=== PATIENT | female | born 1950 | race Caucasian/White ===

== ENCOUNTER → 2016-03-06 | Outpatient (CLI) | payer MEDICARE ==
[2016-03-06 16:09] LABS: EKG EKG PERFORMED
[2016-03-06 16:46] LABS: Basophils # (A) 0.1 k/uL (0-0.2); Basophils % (A) 1 %; CH 28.7; CHCM 33.3; Eosinophils # (A) 0.2 k/uL (0-0.7); Eosinophils % (A) 3 %; HCT 37.2 % (34.0-46.0); HDW 3.02; HGB 12.1 gm/dL (11.4-16.0); Luc # (Auto) 0.15; Luc % (Auto) 2; Lymphocytes # (A) 2.1 k/uL (1.0-4.8); Lymphocytes % (A) 23 %; MCH 28.1 pg (25.0-35.0); MCHC 32.4 g/dL (31.0-37.0); MCV 86.9 fL (80.0-100.0); Mean Platelet Volume 7.2; Monocytes # (A) 0.6 k/uL (0-1.0); Monocytes % (A) 6 %; Neutrophils # (A) 6.2 k/uL (1.3-7.7); Neutrophils % (A) 66 %; RBC 4.28 m/uL (3.80-5.40); RDW 14.8 % (11.5-15.5); WBC 9.3 k/uL (3.8-10.6); WBC (Perox) 9.46
[2016-03-06 16:54] LABS: INR 0.9 (<1.1); Partial Thromboplastin Time 23.9 sec (22.0-30.0); Prothrombin Time 9.7 sec (9.0-12.0)
[2016-03-06 17:11] LABS: Appearance,Urine Cloudy (Clear); Bacteria,Urine Rare /hpf; Bilirubin,Urine Negative (Negative); Calcium Oxalate Crystals,Urine Many /hpf; Glucose,Urine (UA) Negative (Negative); Ketones,Urine Negative (Negative); Leukocyte Esterase,Urine Negative (Negative); Mucus,Urine Few /hpf; Nitrite,Urine Negative (Negative); PH, Urine 5.5 (5.0-8.0); Particle Count 5640; Protein,Urine Trace (Negative); RBC,Urine 13 /hpf (0-5); Specific Gravity,Urine 1.021 (1.001-1.035); Squamous Epithelial Cell,Urine 3 /hpf (0-4); UA Billing (MACRO vs. MICRO) MICRO; Urobilinogen,Urine <2.0 mg/dL (<2.0); WBC,Urine 2 /hpf (0-5)
[2016-03-06 17:25] LABS: ALT 37 U/L (9-52); AST 21 U/L (14-36); Alkaline Phosphatase 88 U/L (38-126); Anion Gap 12 mmol/L; Blood Urea Nitrogen 13 mg/dL (7-17); Calcium 9.6 mg/dL (8.4-10.2); Carbon Dioxide 27 mmol/L (22-30); Chloride 107 mmol/L (98-107); Glucose 105 mg/dL (74-99); Non-African American GFR(MDRD) >60 (>60 ml/min/1.73 sqM); Sodium 146 mmol/L (137-145); Total Bilirubin 0.4 mg/dL (0.2-1.3); Total Protein 7.1 g/dL (6.3-8.2)
== END | disposition home or self-care (01) ==
LOC: LABPAT 16:01
PROVIDERS: ATTEND Orthopaedic Surgery Sports Medicine
DX: Z01.810 Encounter for preprocedural cardiovascular examination (principal); Z01.812 Encounter for preprocedural laboratory examination
CPT/HCPCS: 80053; 81001; 85025; 85610; 85730; 87070; 93005

== ENCOUNTER 2016-03-21 12:52 | Inpatient (IN) | payer MEDICARE ==
[~2016-03-21 12:52] MED LIST: ACETAMINOPHEN TAB 500 MG TAB PO ONE; ALVIMOPAN 12 MG CAPSULE PO ONE; DEXAMETHASONE SOD PHOSPHATE 10 MG/ML 1 ML VIAL IV ONE; HYDROmorphone 1 MG/ML 1 ML SYRINGE IVP PRN; LIDOCAINE 1% 20 ML VIAL (10MG/ML) FOR IV START INTRADERMA PRN; MELOXICAM 7.5 MG TAB PO ONE; MIDAZOLAM 2 MG/2 ML VIAL IV PRN; ONDANSETRON 4 MG/2 ML VIAL IVP ONE; Pre Op ABX Message 1 EACH MISC MISCELLANE ONE; ROPIVACAINE 246.25 MG, EPINEPHrine 0.5 MG, KETOROLAC 30 MG, cloNIDine HCL/PF 80 MCG, WA... MISCELLANE ONE; SCOPOLAMINE 1.5MG/72HR PATCH TRANSDERM ONE
[2016-03-21] MEDS ORDERED: TRANEXAMIC ACID 1,000 MG in SODIUM CHLORIDE 0.9% 100 ML IVPB PRN (12:57)
[2016-03-21] MEDS: LACTATED RINGERS 1,000 ML IV SCH ×3 (13:38→18:31)
[2016-03-21] MEDS: VANCOMYCIN 1,000 MG in SODIUM CHLORIDE 0.9% 250 ML IVPB STA ×2 (14:05→14:12)
[2016-03-21 14:10] LABS: Glucose,Whole Blood 94 mg/dL (75-99)
[2016-03-21] MEDS ORDERED: MORPHINE SULFATE (PF) 0.3 MG/0.3 ML SYR ONE (14:14)
[2016-03-21] MEDS ORDERED: PHENYLEPHRINE-0.9% NACL SYG 1 MG/10 ML SYRINGE ONE (14:14)
[2016-03-21] MEDS ORDERED: SODIUM CHLORIDE 0.9% 100 ML BAG ONE (14:14)
[2016-03-21] MEDS ORDERED: PROPOFOL 10 MG/ML 20 ML VIAL IV ONE (14:14)
[2016-03-21] MEDS ORDERED: MIDAZOLAM 2 MG/2 ML VIAL ONE (14:14)
[2016-03-21] MEDS ORDERED: LIDOCAINE 1% INJ 10MG/ML (20 ML MDV) ONE (14:14)
[2016-03-21] MEDS ORDERED: ePHEDrine 50 MG/ML 1 ML AMP ONE (14:14)
[2016-03-21] MEDS ORDERED: TRANEXAMIC ACID 1,000 MG/10 ML VIAL ONE (14:14)
[2016-03-21] MEDS ORDERED: CLINDAMYCIN 1,800 MG in SODIUM CHLORIDE 0.9% IRRIGATIO 3,000 ML IRRIGATION ONE (14:48)
[2016-03-21] MEDS ORDERED: ONDANSETRON 4 MG/2 ML VIAL IVP PRN ×2 (14:55→16:26)
[2016-03-21] MEDS ORDERED: NALOXONE 0.4 MG/ML 1 ML VIAL IV PRN (14:55)
[2016-03-21] MEDS ORDERED: MORPHINE SULFATE 4 MG/ML SYRINGE IVP PRN (14:55)
[2016-03-21] MEDS ORDERED: diphenhydrAMINE 50 MG/ML 1 ML VIAL IVP PRN (14:55)
[2016-03-21] MEDS ORDERED: TEMAZEPAM 15 MG CAP PO PRN (16:26)
[2016-03-21] MEDS ORDERED: BISACODYL 10 MG SUPP RECTAL PRN (16:26)
[2016-03-21] MEDS ORDERED: NA PHOS,M-B/NA PHOS,DI-BA 133 ML ENEMA RECTAL PRN (16:26)
[2016-03-21] MEDS ORDERED: hydrOXYzine PAMOATE 25 MG CAP PO PRN (16:26)
[2016-03-21] MEDS ORDERED: DIAZEPAM 5 MG TAB PO PRN (16:26)
[2016-03-21] MEDS ORDERED: ACETAMINOPHEN TAB 325 MG TAB PO PRN (16:26)
[2016-03-21] MEDS ORDERED: MAGNESIUM HYDROXIDE 2,400 MG/10 ML CUP PO PRN (16:26)
[2016-03-21] MEDS ORDERED: HYDROmorphone 1 MG/ML 1 ML SYRINGE IVP PRN ×2 (16:26)
[2016-03-21 16:36] LABS: Glucose,Whole Blood 177 mg/dL (75-99)
--- NOTE | 2016-03-21 17:05 | XR ---
EXAMINATION TYPE: XR knee limited RT DATE OF EXAM: 03/21/2016 4:55 PM COMPARISON: NONE HISTORY: Post knee replacement TECHNIQUE: 2 views right knee FINDINGS: Tibial and femoral components in place. No acute fractures are evident. Postsurgical change s are within the soft tissues IMPRESSION: No acute fractures post knee replacement.
[2016-03-21] MEDS: PREGABALIN 100 MG CAP PO SCH (20:41)
[2016-03-21] MEDS: LOSARTAN 50 MG TAB PO SCH (20:41)
[2016-03-21] MEDS: guaiFENesin 600 MG TABLET.ER PO SCH (20:41)
[2016-03-21] MEDS: metFORMIN 500 MG TAB PO SCH (20:41)
[2016-03-21] MEDS: SENNOSIDES-DOCUSATE SODIUM 1 EACH TAB PO SCH (20:41)
[2016-03-21] MEDS: MONTELUKAST 10 MG TAB PO SCH (20:41)
[2016-03-21] MEDS: ASPIRIN 325 MG TAB PO SCH (20:42)
[2016-03-21] MEDS: amLODIPine 5 MG TAB PO SCH (20:42)
[2016-03-21 21:56] LABS: Glucose,Whole Blood 246 mg/dL (75-99)
[2016-03-22] MEDS ORDERED: INSULIN LISPRO (humaLOG) 300 UNIT/3 ML VIAL SQ ONE (00:54)
[2016-03-22] MEDS ORDERED: VANCOMYCIN 1,250 MG in SODIUM CHLORIDE 0.9% 250 ML IVPB ONE (02:00)
[2016-03-22] MEDS: LACTATED RINGERS 1,000 ML IV SCH ×3 (02:44→23:29)
[2016-03-22 04:35] VITALS: BMI 30.9
[2016-03-22] MEDS: LEVOTHYROXINE 50 MCG TAB PO SCH (05:17)
[2016-03-22 07:23] LABS: Glucose,Whole Blood 113 mg/dL (75-99)
[2016-03-22 07:26] LABS: Basophils % (A) 0 %; CH 28.3; CHCM 32.2; Eosinophils % (A) 0 %; HDW 3.06; HGB 11.3 gm/dL (11.4-16.0); Hypochromasia Slight; Luc # (Auto) 0.06; Luc % (Auto) 0; Lymphocytes # (A) 0.9 k/uL (1.0-4.8); Lymphocytes % (A) 7 %; MCH 27.8 pg (25.0-35.0); MCHC 31.4 g/dL (31.0-37.0); MCV 88.5 fL (80.0-100.0); Mean Platelet Volume 7.7; Monocytes # (A) 0.5 k/uL (0-1.0); Monocytes % (A) 4 %; Neutrophils # (A) 11.4 k/uL (1.3-7.7); Neutrophils % (A) 89 %; RBC 4.07 m/uL (3.80-5.40); RDW 15.1 % (11.5-15.5); WBC 12.9 k/uL (3.8-10.6); WBC (Perox) 13.95
[2016-03-22] MEDS ORDERED: INSULIN LISPRO (humaLOG) 300 UNIT/3 ML VIAL SQ SCH (07:30)
--- NOTE | 2016-03-22 07:31 | OP ---
DATE OF SERVICE: 03/21/2016 SURGEON: MARRY PARRA MD OCCUPATIONAL THERAPIST PER DIEM: Nikko Early PA-C PREOPERATIVE DIAGNOSIS: Right knee osteoarthrosis. POSTOPERATIVE DIAGNOSIS: Right knee osteoarthrosis. OPERATION: Right total knee arthroplasty. ANESTHESIA: Spinal with sedation. ESTIMATED BLOOD LOSS: 100 mL. TOURNIQUET TIME: 48 minutes at 250 mmHg. COMPLICATIONS: None apparent. DRAINS: None. DISPOSITION: Postanesthesia care. INDICATIONS: Majo is very pleasant 66-year-old female with long-standing history of right knee pain. History and physical examination are consistent with advanced right knee osteoarthrosis. She has been through significant nonoperative management up to this point. Further treatment options were discussed and she has I decided to go forward with right total knee arthroplasty. The risks of the procedure were discussed with her in detail. These risks include, but are not limited to risk of infection, nerve damage, bleeding, pain, and a small risk of deep vein thrombosis, which could lead to fatal pulmonary embolism. There is also a risk of loosening of the implant, which could require revision operation. Patient understands these risks. All of her questions were answered to her satisfaction. Appropriate informed consent was obtained. DESCRIPTION OF THE PROCEDURE: The patient was identified in the preoperative holding area. Surgical site was marked by both the patient and myself. She was given 1 gram of vancomycin IV for prophylactic purposes. She was then transferred to the operative suite, where she was placed supine on the operating room table. Spinal anesthetic was administered and dosed by the anesthesia department without apparent complication. Examination under anesthesia was then performed. The patient had 10 degrees flexion contracture and she had 100 degrees of flexion and the medial collateral ligament, lateral collateral ligament and posterior cruciate ligaments were stable. Tourniquet was then placed high in the right upper thigh, well padded in preparation for surgery. The patient's right lower extremity was then prepped and draped usual sterile fashion. Standard surgical pause was and taken to ensure that were operating on correct site and that appropriate preoperative antibiotics had been given. All staff in the room were in agreement and we proceeded. The outlines of the patella were then marked with a surgical pen. A planned 12 cm vertical incision centered over the patella was marked with a surgical pen. Leg was then exsanguinated with an Esmarch dressing. The knee was then flexed and the tourniquet was inflated to 250 mmHg. The total tourniquet time for the procedure was 48 minutes. Incision was then made with a 10 blade scalpel. Dissection was carried down sharply through the overlying fascia. Great care was taken to minimize skin flaps. The knee was then exposed using a standard medial parapatellar approach. Small cuff of quadriceps tendon was then left for suturing. She was in a bit of varus preoperatively. A standard medial release was then made. Superficial medial collateral ligament was dissected off the bone around to the posterior aspect of the proximal tibia. The medial meniscus was then excised as well. The lateral meniscus was also released anteriorly. The leg was then externally rotated. The patella was everted and the knee was flexed. Retractors were then placed to protect the collateral ligaments. I then proceeded to remove the infrapatellar fat pad. This was excised sharply tangentially with the fibers of the patellar tendon. I then proceeded to remove the peripheral osteophytes. This was done with a rongeur. I then proceeded with the distal femoral resection. She did have a flexion contracture. A planned extra 2 mm resection was planned. I planned for an 11 mm resection. Femoral canal was then entered in the midline of the femur, approximately 10 mm anterior to the origin of the posterior cruciate ligament. Ar was then advanced down the center of the femur and the ar was placed intramedullary. Based on preoperative radiographs, the angle between the anatomic and mechanical axis of the femur was approximately 4 to 5 degrees the valgus angle of the distal femoral cutting guide was then set at 4 degrees for the right knee. The distal femoral cutting guide was then advanced over the intramedullary ar. This was seated firmly against the femur. I then, as mentioned, planned to take 11 mm off the distal femur. The cutting block was then secured onto the femur with pins. Jig was then removed and the distal femoral cut was made through the slot of the block. The pins were then removed and distal femoral cutting block was removed. The accuracy of the distal femoral cuts was checked with 2 flat bars. I then proceeded with femoral sizing. The posterior referencing sizing guide was held firmly against the resected distal surface of the femur. Posterior cuts condyles were resting on the posterior plane of the guide. The sizing status then placed onto the anterior femur. This was measured at a size 8. I then assessed for femoral rotation. The plan was for 3 degrees of external rotation, 3 degrees of external rotation was placed onto the jig. These holes were then marked. I then confirmed the rotation by 3 separate methods. This was done using epicondylar axis as well as [place] line and posterior referencing. It was deemed that the external rotation was proper. I then went forward with placing the femoral cutting block. This was placed over the previously placed pinholes. The meghann wing was then placed onto the anterior slots to ensure that we would not notch anterior femur with the anterior femoral cut. I then proceeded with the anterior femoral cut. This was flush with the anterior cortex of the femur. Posterior cuts were made followed by the anterior chamfer cut and then the posterior chamfer cut. The cutting block was then removed. Throughout the resection, the collateral ligaments were protected with retractors. I then placed a trial 8 femur. It was slightly wide medial to lateral and fit flush with the distal end of the femur. Plan was to switch to an 8 narrow. The drill holes were then made to accommodate an 8 narrow. I then proceeded with the tibial cut. I planned for cruciate-retaining knee. The guide was placed and set for varus valgus and for slope. Height was set for an approximately 2 mm resection from the medial tibial plateau, which was the lower side. I was happy with the alignment and the amount of resection. Cutting block was then pinned to the proximal tibia. The alignment ar was removed and the proximal tibia was resected with the reciprocating saw. Again this was done with retractors, protecting the collateral ligaments as well as posterior cruciate ligament. I then proceeded to evaluate the flexion and extension gaps. A 10 mm block was placed. The flexion and extension gaps were equal. I then proceeded with resection of the posterior osteophytes. She had very minimal posterior osteophytes. This was done using curved osteotome. This resected the posterior osteophytes and posterior capsule stripping was done off the posterior aspect of the femur at this time. The osteophytes were removed. I then proceeded with resection of the patella. The thickness of the patella was measured using the caliper. Thickness was 22 mm thickness. The thickness of the anticipated patellar dome was taken into account. Resection was then performed and confirmed to be equal in 4 quadrants using the caliper. Approximately 14 mm of bone remained after the resection. A 29 x 8 mm standard patellar trial was then placed. The holes were then drilled and trial was then placed. I then proceeded with sizing tibial plate. A size E tibial plate fit very nicely. I then placed a trial femur, the tibial tray and the patellar button. A 10 mm trial tibial insert was also placed. The components fit very nicely. She had full extension and flexion. Extension and flexion gaps were equal and stable to both varus and valgus stress. The patella tracked appropriately. The tibial tray rotation was then marked with a Bovie. This was externally rotated properly. I then proceeded with tibial preparation. I first drilled the femoral holes and removed femoral component. The tibial tray was then set for proper external rotation as well as medial to lateral placement onto the tibia. It was then pinned into place. I then proceeded with punching the keel. I then decided to proceed with cementing of all of our components. The knee was thoroughly irrigated with sterile saline solution via pulse lavage. The lateral geniculate artery was identified and cauterized. All blood was removed from the bone of the tibia, femur and patella with pulse lavage. I then proceeded with cementing. Two packs of antibiotic bone cement were prepared on the back table by the surgical supply assistant. I then proceeded with cementing of the tibia first. The cement was impacted in the keel as well as deeply seated into the bone. A second coat of cement was then placed. Tibia was then impacted into place. Excess cement was removed with [place]'s and jokers. I then proceeded with cementing of the femoral component. The femoral component was also cemented using standard technique. Excess cement was removed. A 10 mm trial tibial insert was then placed into the knee. It was brought into full extension with a constant axial load placed until the cement had hardened. The patellar component was then cemented. This was held firmly with a compressive device until the cement had dried. When was cement had dried, the knee was taken out of extension. All excess cement was removed from around the prosthesis. I then trialed the knee with a 10 mm insert. Flexion-extension gaps were appropriate. It came into full extension. Decided to go forward with 10 mm cross-linked cruciate-retaining tibial insert. The polyethylene was then placed onto the tibial tray and then locked. The knee was then reduced. The knee was again further irrigated with sterile saline solution with antibiotic added. The tourniquet was then deflated. Total tourniquet time for the procedure was 48 minutes at 250 mmHg. Final components were a Lisa persona size 8 narrow cruciate-retaining femoral component, a size E tibial tray, a 10 mm cruciate retaining polyethylene insert and a 29 x 8 mm standard patella. I then proceeded with closure. Again, the knee was thoroughly irrigated. The quadriceps tendon and the medial retinaculum were reapproximated with #2 Ethibond suture. The extensor mechanism was then closed with running #2 Quill suture. Subcutaneous tissues were then closed with 2-0 Vicryl interrupted suture. Skin was closed with a running 3-0 Quill suture. Dermabond was applied to the incision. Sterile compressive dressings were then applied. All sponge and needle counts were deemed correct prior to closure. The patient tolerated the procedure without apparent complication. She was transferred to the recovery room in stable condition.
[2016-03-22] MEDS: INSULIN LISPRO (humaLOG) 300 UNIT/3 ML VIAL SQ SCH ×4 (07:38→20:51)
[2016-03-22 08:21] LABS: Hemoglobin A1C 5.9 % (4.2-6.1)
[2016-03-22] MEDS: PREGABALIN 100 MG CAP PO SCH ×3 (08:33→21:36)
[2016-03-22] MEDS: guaiFENesin 600 MG TABLET.ER PO SCH ×2 (08:33→20:26)
[2016-03-22] MEDS: SERTRALINE 50 MG TAB PO SCH (08:34)
[2016-03-22] MEDS: ASPIRIN 325 MG TAB PO SCH ×2 (08:34→20:24)
--- NOTE | 2016-03-22 08:34 | P.PN ---
Progress Note - Text Date: 03/22/2016 Time: 717 The patient is status post, total right knee arthroplasty. Vital signs stable VAS:0-10 Patient has no complaints of pain. The patient incurred some minimal itching yesterday, this itching is now subsiding. Pain meds to be managed by service.
[2016-03-22] MEDS: FAMOTIDINE 20 MG TAB PO SCH (08:36)
[2016-03-22] MEDS: metFORMIN 500 MG TAB PO SCH ×2 (08:36→17:42)
[2016-03-22] MEDS: LORATADINE 10 MG TAB PO SCH (08:36)
[2016-03-22] MEDS: amLODIPine 5 MG TAB PO SCH ×2 (08:37→20:24)
[2016-03-22] MEDS: traMADol 50 MG TAB PO PRN ×3 (08:57→20:24)
[2016-03-22] MEDS ORDERED: NON-FORMULARY DRUG (Aspirin [Adult Low Dose Aspirin Ec] 81 MG) PO SCH (09:00)
[2016-03-22 12:28] LABS: Glucose,Whole Blood 91 mg/dL (75-99)
[2016-03-22] MEDS: MULTIVITAMINS, THERA 1 EACH TAB PO SCH (12:29)
[2016-03-22] MEDS: ESTRADIOL 0.5 MG TAB PO SCH (12:30)
--- NOTE | 2016-03-22 13:10 | P.PN ---
Subjective Principal diagnosis: Status post right total knee arthroplasty Patient is postop day 1 from right total knee arthroplasty performed by Dr. Hi. She's doing well. Pain is mostly controlled with oral pain medication. She has pain at the surgical site as expected. She has no new complaints. She denies numbness or tingling. She denies calf pain. Review of systems negative for fever, chills, chest pain, shortness breath, or other. Objective - Vital Signs Vital signs: Vital Signs Temp 97 F L 03/22/16 07:00 Pulse 76 03/22/16 08:00 Resp 16 03/22/16 08:00 BP 109/58 03/22/16 07:00 Pulse Ox 93 L 03/22/16 07:00 Intake & Output 03/21/16 03/22/16 03/22/16 18:59 06:59 18:59 Intake Total 2821 1150 Output Total 225 1100 Balance 2596 1150 -1100 Weight 87.09 kg Intake: IV 1601 900 Lactated Ringers 1,000 ml 900 @ 100 mls/hr IV .Q10H SHELLIE Rx#:[id number] Intake, IV Titration 250 Amount Vancomycin 1,250 mg In 250 Sodium Chloride 0.9% 250 ml @ 125 mls/hr IVPB ONCE ONE Rx#:[id number] Oral 1220 Output: Urine 125 1100 Uretheral (Patino) 800 Estimated Blood Loss 100 Other: Voiding Method Indwelling Catheter Indwelling Catheter - Exam Inspection of lower extremity reveals a benign surgical wound with no active bleeding, dehiscence or drainage. She has sensation to light touch intact throughout the lower extremity. Calf is soft and nontender. She can plantarflex and dorsiflex the foot and toes. 2+ dorsalis pedis pulse and less than 2 second cap refill is present. - Constitutional General appearance: Present: no acute distress - Psychiatric Psychiatric: Present: A&O x's 3, appropriate affect, intact judgment & insight - Labs CBC & Chem 7: 03/22/16 07:04 Labs: Abnormal Lab Results - Last 24 Hours (Table) 03/21/16 03/21/16 03/22/16 Range/Units 16:33 21:54 07:04 WBC 12.9 H (3.8-10.6) k/uL Hgb 11.3 L (11.4-16.0) gm/dL Neutrophils # 11.4 H (1.3-7.7) k/uL Lymphocytes # 0.9 L (1.0-4.8) k/uL POC Glucose (mg/dL) 177 H 246 H (75-99) mg/dL 03/22/16 Range/Units 07:17 WBC (3.8-10.6) k/uL Hgb (11.4-16.0) gm/dL Neutrophils # (1.3-7.7) k/uL Lymphocytes # (1.0-4.8) k/uL POC Glucose (mg/dL) 113 H (75-99) mg/dL Assessment and Plan (1) S/P total knee arthroplasty Narrative/Plan: Patient will continue with routine postop orthopedic protocol including pain management, wound care, physical therapy, DVT prophylaxis and medical management. She is pending rehab placement and expect that she will transfer to an extended care facility in a few days. Status: Acute Time with Patient: Less than 30
--- NOTE | 2016-03-22 15:30 | P.CONS ---
History of Present Illness - Reason for Consult Consult date: 03/21/16 Medical management Requesting physician: Kody Hi - Chief Complaint Post right total knee arthroplasty, diabetes, COPD, allergy, hypertension - History of Present Illness 66-year-old female mildly overweight [address] Guzman patient with past medical history of fibromyalgia, COPD, diabetes, hypertension and chronic pain syndrome who has been suffering from severe arthritis of the right knee with worsening symptom for the last few months. Patient had arthroscopy in the past which had helped for. This time it lately has been having worsening symptoms. After failure of conservative management decision with the help of her primary care physician to go for total knee arthroplasty was done. Patient had surgery successfully with Dr. Hi today was admitted to the floor afterwards her medication will resume patient had been watch hemodynamically has been stable pain is under control. Review of Systems Constitutional: Reports fatigue, Reports malaise, Denies as per HPI, Denies anorexia, Denies chills, Denies chronic headaches, Denies chronic pain, Denies daytime sleepiness, Denies fever, Denies lethargy, Denies night sweats, Denies poor appetite, Denies sweats, Denies weakness, Denies weight gain, Denies weight loss Eyes: bilateral as per HPI Ears: bilateral: decreased hearing Ears, nose, mouth and throat: Reports sinus pressure, Denies as per HPI, Denies ant. neck pain, Denies bleeding gums, Denies dental pain, Denies dysphagia, Denies epistaxis, Denies headache, Denies hoarseness, Denies mouth pain, Denies nasal congestion, Denies nasal discharge, Denies neck fullness/pressure, Denies neck lump, Denies nose pain, Denies odynophagia, Denies post-nasal drip, Denies sinus pain, Denies swelling in mouth, Denies swelling in throat, Denies sore throat, Denies vertigo, Denies voice changes Cardiovascular: Denies as per HPI, Denies chest pain, Denies claudication, Denies decreased exercise tolerance, Denies dyspnea on exertion, Denies edema, Denies high blood pressure, Denies irregular heart beat, Denies leg edema, Denies lightheadedness, Denies orthopnea, Denies palpitations, Denies paroxysmal nocturnal dyspnea, Denies phlebitis, Denies rapid heart beat, Denies shortness of breath, Denies syncope Respiratory: Reports congestion, Denies as per HPI, Denies cough, Denies cough with sputum, Denies dyspnea, Denies excessive sputum, Denies hemoptysis, Denies home oxygen, Denies pain, Denies pain on inspiration, Denies pleurisy, Denies respiratory infections, Denies sleep apnea, Denies snoring, Denies wheezing Gastrointestinal: Reports excessive gas, Reports indigestion, Reports nausea, Denies as per HPI, Denies abdominal pain, Denies belching, Denies bloating, Denies BRBPR, Denies change in bowel habits, Denies coffee ground emesis, Denies constipation, Denies diarrhea, Denies dyspepsia, Denies early satiety, Denies heartburn, Denies hematemesis, Denies hematochezia, Denies jaundice, Denies lactose intolerance, Denies loss of appetite, Denies melena, Denies vomiting Genitourinary: Reports stress incontinence, Reports urge incontinence, Reports urgency, Denies as per HPI, Denies abnormal vaginal bleeding, Denies decreased libido, Denies difficulty conceiving, Denies difficulty voiding, Denies dysmenorrhea, Denies dyspareunia, Denies dysuria, Denies flank pain, Denies genital sores, Denies hematuria, Denies hot flashes, Denies incomplete emptying , Denies kidney stones, Denies menorrhagia, Denies mixed incontinence, Denies nocturia, Denies pelvic pain, Denies post void dribbling, Denies , Denies prolapse symptoms, Denies urinary frequency, Denies vaginal discharge, Denies vaginal dryness, Denies vaginal itching, Denies vaginal odor Musculoskeletal: Reports frequent falls, Reports limitation of motion, Reports myalgias, Reports neck pain, Reports neck stiffness, Denies as per HPI, Denies arm numbness/tingling, Denies atrophy, Denies fractures, Denies gait dysfunction , Denies hot joints, Denies leg numbness/tingling, Denies loss of height, Denies low back pain, Denies morning stiffness, Denies muscle cramps, Denies muscle weakness, Denies prior amputations, Denies redness of joints, Denies shooting arm pain, Denies shooting leg pain Musculoskeletal: bilateral: ankle pain Integumentary: Reports foot/leg ulcers, Reports pruritus, Reports rash, Reports sores, Denies as per HPI, Denies acne, Denies boils, Denies brittle nails, Denies change in hair/nails, Denies color changes, Denies darkening of skin, Denies depigmentation, Denies dryness, Denies growths, Denies hirsutism, Denies lesions, Denies onychomycosis, Denies striae, Denies unusual bruising, Denies wounds Neurological: Reports numbness, Reports paresthesias, Reports tingling, Reports tremors, Denies as per HPI, Denies aphasia, Denies ataxia, Denies balance difficulties, Denies burning pain, Denies change in mentation, Denies change in smell/taste, Denies change in speech, Denies confusion, Denies convulsions, Denies double vision, Denies gait dysfunction, Denies head injury, Denies headaches, Denies hearing difficulties, Denies lack of coordination, Denies loss of vision, Denies memory loss, Denies migraines, Denies motor disturbance, Denies paralysis, Denies seizures, Denies sensory deficit, Denies spasticity, Denies syncope, Denies tic, Denies transient paralysis, Denies vertigo, Denies weakness, Denies visual changes Psychiatric: Reports anxiety, Reports depression, Denies as per HPI, Denies anhedonia, Denies anxiety attacks, Denies change in appetite, Denies change in libido, Denies change in sleep habits, Denies confusion, Denies difficulty concentrating, Denies disorientation, Denies hallucinations, Denies hopelessness , Denies hypersomnia, Denies insomnia, Denies irritability, Denies memory loss, Denies mood swings, Denies paranoia, Denies sadness/tearfulness, Denies sleep disturbances, Denies suicidal ideation Endocrine: Reports cold intolerance, Reports fatigue, Reports nocturia, Reports polydipsia, Reports polyuria, Denies as per HPI, Denies deepening of the voice, Denies excessive sweating, Denies excessive thirst, Denies flushing, Denies heat intolerance, Denies high blood sugars, Denies increase in ring/shoe/hat size, Denies low blood sugars, Denies palpitations, Denies polyphagia, Denies proptosis, Denies recent glucocorticoid use, Denies thyroid mass, Denies weight change Hematologic/Lymphatic: Reports easy bruising, Denies as per HPI, Denies easy bleeding, Denies lymphadenopathy, Denies lymphedema, Denies thrombophilia Allergic/Immunologic: Denies as per HPI, Denies allergic rhinitis, Denies anaphylaxis, Denies angioedema, Denies gluten intolerance, Denies persistent infections, Denies seasonal allergies, Denies urticaria, Denies wheezing Past Medical History Past Medical History: COPD, Diabetes Mellitus, Fibromyalgia, Hypertension, Pneumonia Additional Past Medical History / Comment(s): CURRENTLY MAY HAVE A KIDNEY STONE (BASE ON UA RESULTS) DR. GUZMAN ORDERED AN ABD US AND WAS DONE TODAY, 02/1716. CHRONIC BACK AND KNEE PAIN. Chronic Bronchitis; Mitral Valve Regurgitation. KIDNEY STONES History of Any Multi-Drug Resistant Organisms: None Reported Past Surgical History: Hysterectomy, Orthopedic Surgery Additional Past Surgical History / Comment(s): ARTHRO OF RIGHT KNEE. Past Anesthesia/Blood Transfusion Reactions: No Reported Reaction Past Psychological History: Depression Smoking Status: Never smoker Past Alcohol Use History: Rare Past Drug Use History: None Reported - Past Family History Mother Family Medical History: No Reported History Brother(s) Family Medical History: Myocardial Infarction ([place]) Additional Family Medical History / Comment(s): OTHER BROTHER: "HEART PROBLEMS" Father Additional Family Medical History / Comment(s): FROM [place] Medications and Allergies Home Medications Medication Instructions Recorded Confirmed Type Aspirin [Adult Low Dose Aspirin EC] 81 mg PO DAILY 03/12/16 03/21/16 History Cetirizine HCl [Zyrtec] 10 mg PO QAM 03/12/16 03/21/16 History Ibuprofen [Motrin] 800 mg PO Q8H PRN 03/12/16 03/21/16 History Levothyroxine Sodium [Synthroid] 50 mcg PO QAM 03/12/16 03/21/16 History Losartan [Cozaar] 50 mg PO HS 03/12/16 03/21/16 History Montelukast [Singulair] 10 mg PO HS 03/12/16 03/21/16 History Multivitamins, Thera [Multivitamin] 1 tab PO DAILY 03/12/16 03/21/16 History Pregabalin [Lyrica] 200 mg PO TID 03/12/16 03/21/16 History Sertraline [Zoloft] 150 mg PO QAM 03/12/16 03/21/16 History amLODIPine [Norvasc] 5 mg PO BID 03/12/16 03/21/16 History guaiFENesin [Mucinex] 600 mg PO BID 03/12/16 03/21/16 History metFORMIN HCL ER [Glucophage Xr] 500 mg PO BID 03/12/16 03/21/16 History Estradiol 0.25 mg PO MOWEFR 03/21/16 03/21/16 History Allergies Allergy/AdvReac Type Severity Reaction Status Date / Time acetaminophen [From Lortab] Allergy Hallucinati Verified 03/12/16 14:46 ons cephalexin monohydrate Allergy Itching Verified 03/12/16 14:46 [From Keflex] codeine Allergy Hallucinati Verified 03/12/16 14:46 ons hydrocodone bitartrate Allergy Hallucinati Verified 03/12/16 14:46 [From Lortab] ons latex Allergy Rash/Hives Verified 03/12/16 14:46 Physical Exam Vitals: Vital Signs Temp Pulse Resp BP Pulse Ox 03/21/16 17:05 84 16 111/54 96 03/21/16 16:46 85 16 115/54 96 03/21/16 16:31 86 16 121/59 90 L 03/21/16 16:16 97.6 F 93 16 126/58 94 L 03/21/16 13:20 95.7 F L 71 16 146/70 96 Intake and Output 03/21/16 03/21/16 03/21/16 06:59 14:59 22:59 Intake Total 1251 1570 Output Total 225 Balance 1251 1345 Intake: IV 1251 350 Oral 1220 Output: Urine 125 Estimated Blood Loss 100 - Constitutional General appearance: no average body habitus, cooperative, no disheveled, no mild distress, no morbidly obese, no acute distress, no obese, no severe distress, no thin - EENT Eyes: no abnormal pupil, no anicteric sclerae, no disc margins sharp, no edentulous, no EOMI, no PERRLA, no fundus normal, no photophobia, no dentition normal, no poor dentition, no ptosis, no scleral icterus, normal appearance ENT: hard of hearing, no hearing grossly normal, no NA/AT, normal oropharynx, no other, no pharyngeal erythema, no thrush, no tonsillar exudates, no tonsillar swelling Ears: bilateral: normal - Neck Neck: no lymphadenopathy, normal ROM, no other, no rigidity, no stridor, no thyromegaly Thyroid: bilateral: normal size - Respiratory Respiratory: bilateral: CTA, diminished - Cardiovascular Rhythm: regular Heart sounds: normal: S1, S2 Abnormal Heart Sounds: systolic murmur, S3 Gallop - Gastrointestinal General gastrointestinal: no absent bowel sounds, decreased bowel sounds, no distended, no hepatomegaly, hyperactive bowel sounds, no normal bowel sounds, no organomegaly, no rigid, no scaphoid, soft, no splenomegaly, no tenderness, no umbilical hernia, no ventral hernia - Integumentary Integumentary: no calor, no cellulitis, no cyanotic, no decreased turgor, no flushed, jaundiced, normal, no normal turgor, pale, rash, no ulcer - Neurologic Neurologic: CNII-XII intact - Musculoskeletal Musculoskeletal: gait normal, generalized weakness, strength equal bilaterally, no right sided weakness, no left sided weakness - Psychiatric Psychiatric: A&O x's 3, appropriate affect, no intact judgment & insight Results CBC & Chem 7: 03/22/16 07:04 Labs: Abnormal Lab Results - Last 24 Hours (Table) 03/21/16 Range/Units 16:33 POC Glucose (mg/dL) 177 H (75-99) mg/dL Assessment and Plan Plan: 1 post right total knee arthroplasty: Watch patient with dynamic status, resume home meds, GI, DVT, pulmonary prophylaxis protocol abuse. Control patient's pain and advance physical therapy gradually. 2 diabetes: Patient has been on metformin continue medication continue Accu- Chek with sliding scales coverage. 3 hypertension: Has been on Zocor 50 mg daily and Norvasc 5 mg daily Resume medication. 4 COPD: Patient is doing well currently continue Singulair continue inhaler currently. 5 hypothyroidism: Continue patient on Synthroid 50 g daily. 6 allergy: Has been on sertraline and Singulair. 7 estrogen replacement therapy: Has been on Estradiol 0.25 mg 3 times a week. 8 depression: Has been on Zoloft 150 mg daily. 9 severe fibromyalgia: Apparently has been doing very well on Lyrica 200 mg 3 times a day even though the dose is quite bit high resume medication to avoid any withdrawal symptoms but will watch symptoms carefully. 10 DVT prophylaxis: Patient will be on aspirin. GI prophylaxis: Patient will be on Pepcid 20 mg daily. CODE STATUS: Full code. Dr. Hi thank you very much for the consult if I can be any further help to please let me know thank you.
--- NOTE | 2016-03-22 16:19 | P.PN ---
Subjective 66-year-old female mildly overweight [address] Meier patient with past medical history of fibromyalgia, COPD, diabetes, hypertension and chronic pain syndrome who has been suffering from severe arthritis of the right knee with worsening symptom for the last few months. Patient had arthroscopy in the past which had helped for. This time it lately has been having worsening symptoms. After failure of conservative management decision with the help of her primary care physician to go for total knee arthroplasty was done. Patient had surgery successfully with Dr. Hi today was admitted to the floor afterwards her medication will resume patient had been watch hemodynamically has been stable pain is under control. 03/22 white count is 12.9, hemoglobin 11.3. Patient denies any chest pain, shortness of breath nausea or vomiting. She is on aspirin full strength twice daily for DVT prophylaxis. She is planning for subacute rehab on Friday. Objective - Vital Signs Vital signs: Vital Signs Temp 97 F L 03/22/16 07:00 Pulse 76 03/22/16 08:00 Resp 16 03/22/16 08:00 BP 109/58 03/22/16 07:00 Pulse Ox 93 L 03/22/16 07:00 Intake & Output 03/21/16 03/22/16 03/22/16 18:59 06:59 18:59 Intake Total 2821 1150 Output Total 225 1100 Balance 2596 1150 -1100 Weight 87.09 kg Intake: IV 1601 900 Lactated Ringers 1,000 ml 900 @ 100 mls/hr IV .Q10H SHELLIE Rx#:[id number] Intake, IV Titration 250 Amount Vancomycin 1,250 mg In 250 Sodium Chloride 0.9% 250 ml @ 125 mls/hr IVPB ONCE ONE Rx#:[id number] Oral 1220 Output: Urine 125 1100 Uretheral (Patino) 800 Estimated Blood Loss 100 Other: Voiding Method Indwelling Catheter Indwelling Catheter - Exam General appearance: no average body habitus, cooperative, no disheveled, no mild distress, no morbidly obese, no acute distress, no obese, no severe distress, no thin - EENT Eyes: no abnormal pupil, no anicteric sclerae, no disc margins sharp, no edentulous, no EOMI, no PERRLA, no fundus normal, no photophobia, no dentition normal, no poor dentition, no ptosis, no scleral icterus, normal appearance ENT: hard of hearing, no hearing grossly normal, no NA/AT, normal oropharynx, no other, no pharyngeal erythema, no thrush, no tonsillar exudates, no tonsillar swelling Ears: bilateral: normal - Neck Neck: no lymphadenopathy, normal ROM, no other, no rigidity, no stridor, no thyromegaly Thyroid: bilateral: normal size - Respiratory Respiratory: bilateral: CTA, diminished - Cardiovascular Rhythm: regular Heart sounds: normal: S1, S2 Abnormal Heart Sounds: systolic murmur, S3 Gallop - Gastrointestinal General gastrointestinal: no absent bowel sounds, decreased bowel sounds, no distended, no hepatomegaly, hyperactive bowel sounds, no normal bowel sounds, no organomegaly, no rigid, no scaphoid, soft, no splenomegaly, no tenderness, no umbilical hernia, no ventral hernia - Integumentary Integumentary: no calor, no cellulitis, no cyanotic, no decreased turgor, no flushed, jaundiced, normal, no normal turgor, pale, rash, no ulcer - Neurologic Neurologic: CNII-XII intact - Musculoskeletal Musculoskeletal: gait normal, generalized weakness, strength equal bilaterally, no right sided weakness, no left sided weakness - Psychiatric Psychiatric: A&O x's 3, appropriate affect, no intact judgment & insight - Labs CBC & Chem 7: 03/22/16 07:04 Labs: Abnormal Lab Results - Last 24 Hours (Table) 03/21/16 03/21/16 03/22/16 Range/Units 16:33 21:54 07:04 WBC 12.9 H (3.8-10.6) k/uL Hgb 11.3 L (11.4-16.0) gm/dL Neutrophils # 11.4 H (1.3-7.7) k/uL Lymphocytes # 0.9 L (1.0-4.8) k/uL POC Glucose (mg/dL) 177 H 246 H (75-99) mg/dL 03/22/16 Range/Units 07:17 WBC (3.8-10.6) k/uL Hgb (11.4-16.0) gm/dL Neutrophils # (1.3-7.7) k/uL Lymphocytes # (1.0-4.8) k/uL POC Glucose (mg/dL) 113 H (75-99) mg/dL Assessment and Plan Plan: 1 post right total knee arthroplasty: Watch patient with dynamic status, resume home meds, GI, DVT, pulmonary prophylaxis protocol abuse. Control patient's pain and advance physical therapy gradually. 2 diabetes: Patient has been on metformin continue medication continue Accu- Chek with sliding scales coverage. 3 hypertension: Has been on Zocor 50 mg daily and Norvasc 5 mg daily Resume medication. 4 COPD: Patient is doing well currently continue Singulair continue inhaler currently. 5 hypothyroidism: Continue patient on Synthroid 50 g daily. 6 allergy: Has been on sertraline and Singulair. 7 estrogen replacement therapy: Has been on Estradiol 0.25 mg 3 times a week. 8 depression: Has been on Zoloft 150 mg daily. 9 severe fibromyalgia: Apparently has been doing very well on Lyrica 200 mg 3 times a day even though the dose is quite bit high resume medication to avoid any withdrawal symptoms but will watch symptoms carefully. 10 DVT prophylaxis: Patient will be on aspirin. GI prophylaxis: Patient will be on Pepcid 20 mg daily. CODE STATUS: Full code. Discharge plan: Subacute rehab on Friday Impression and plan of care have been directed as dictated by the signing physician. Jacinta Hernandez nurse practitioner acting as scribe for signing physician. Time with Patient: Greater than 30
[2016-03-22 17:06] LABS: Glucose,Whole Blood 110 mg/dL (75-99)
[2016-03-22] MEDS: LOSARTAN 50 MG TAB PO SCH (20:24)
[2016-03-22] MEDS: MONTELUKAST 10 MG TAB PO SCH (20:24)
[2016-03-22] MEDS: SENNOSIDES-DOCUSATE SODIUM 1 EACH TAB PO SCH (20:26)
[2016-03-22 20:42] LABS: Glucose,Whole Blood 89 mg/dL (75-99)
[2016-03-22] MEDS: HYDROmorphone 1 MG/ML 1 ML SYRINGE IVP PRN (23:24)
[2016-03-23] MEDS: traMADol 50 MG TAB PO PRN ×4 (04:22→21:44)
[2016-03-23] MEDS: LEVOTHYROXINE 50 MCG TAB PO SCH (05:55)
[2016-03-23 06:47] LABS: Glucose,Whole Blood 108 mg/dL (75-99)
[2016-03-23] MEDS: INSULIN LISPRO (humaLOG) 300 UNIT/3 ML VIAL SQ SCH ×4 (07:44→21:33)
[2016-03-23] MEDS: HYDROmorphone 1 MG/ML 1 ML SYRINGE IVP PRN (07:54)
[2016-03-23] MEDS: amLODIPine 5 MG TAB PO SCH ×2 (07:57→21:32)
[2016-03-23] MEDS: ASPIRIN 325 MG TAB PO SCH ×2 (07:58→21:32)
[2016-03-23] MEDS: metFORMIN 500 MG TAB PO SCH ×2 (07:58→17:54)
[2016-03-23] MEDS: MULTIVITAMINS, THERA 1 EACH TAB PO SCH (07:58)
[2016-03-23] MEDS: FAMOTIDINE 20 MG TAB PO SCH (07:59)
[2016-03-23] MEDS: guaiFENesin 600 MG TABLET.ER PO SCH ×2 (07:59→21:32)
[2016-03-23] MEDS: SERTRALINE 50 MG TAB PO SCH (07:59)
[2016-03-23] MEDS: LORATADINE 10 MG TAB PO SCH (08:00)
[2016-03-23] MEDS: PREGABALIN 100 MG CAP PO SCH ×3 (08:00→21:32)
[2016-03-23] MEDS ORDERED: Acetaminophen-Codeine 300-30mg TAB PO PRN (08:26)
--- NOTE | 2016-03-23 09:25 | P.PN ---
Subjective Principal diagnosis: Status post right total knee arthroplasty This is a 66 year-old female post right total knee arthroplasty. This is post- op day 2. The patient was evaluated at the bedside today. The patient denies nausea, vomiting, abdominal pain, shortness of breath, and chest pain this morning. She states her pain is controlled at this time. The patient has been up in chair yesterday but is moving slow. Objective - Vital Signs Vital signs: Vital Signs Temp 98.5 F 03/23/16 07:49 Pulse 77 03/23/16 07:49 Resp 16 03/23/16 07:49 BP 106/58 03/23/16 07:49 Pulse Ox 86 L 03/23/16 07:49 Intake & Output 03/22/16 03/23/16 03/23/16 18:59 06:59 18:59 Intake Total 960 400 118 Output Total 1850 Balance -890 400 118 Intake: IV 600 Lactated Ringers 1,000 ml 600 @ 100 mls/hr IV .Q10H SHELLIE Rx#:[id number] Oral 360 400 118 Output: Urine 1850 Uretheral (Patino) 800 Other: Voiding Method Indwelling Catheter Toilet # Voids 1 2 - Exam The patient does not appear in acute distress. Alert and orientated x3. Dressing is clean dry and intact. Incision appears fine with no erythema or active drainage. Calf is soft and nontender. Good foot and ankle motion without difficulty. Sensation and circulatory status is intact. - Labs CBC & Chem 7: 03/22/16 07:04 Labs: Abnormal Lab Results - Last 24 Hours (Table) 03/22/16 03/23/16 Range/Units 16:53 06:39 POC Glucose (mg/dL) 110 H 108 H (75-99) mg/dL Assessment and Plan (1) Primary osteoarthritis of right knee Status: Acute (2) Status post right knee replacement Status: Acute Plan: 1. Continue pain control 2. Anticoagulation with Aspirin 325 mg BID 3. Continue physical therapy and ambulation 4. Anticipate discharge to skilled rehab on Friday
--- NOTE | 2016-03-23 09:26 | P.PN ---
Subjective 66-year-old female mildly overweight [address] Meier patient with past medical history of fibromyalgia, COPD, diabetes, hypertension and chronic pain syndrome who has been suffering from severe arthritis of the right knee with worsening symptom for the last few months. Patient had arthroscopy in the past which had helped for. This time it lately has been having worsening symptoms. After failure of conservative management decision with the help of her primary care physician to go for total knee arthroplasty was done. Patient had surgery successfully with Dr. Hi today was admitted to the floor afterwards her medication will resume patient had been watch hemodynamically has been stable pain is under control. 03/22 white count is 12.9, hemoglobin 11.3. Patient denies any chest pain, shortness of breath nausea or vomiting. She is on aspirin full strength twice daily for DVT prophylaxis. She is planning for subacute rehab on Friday. 03/23: Patient is complaining of increased pain to the right knee today. Pulse ox was noted to be 86%. Will increase tramadol and add in Tylenol No. 3 as needed. Objective - Vital Signs Vital signs: Vital Signs Temp 98.5 F 03/23/16 07:49 Pulse 77 03/23/16 07:49 Resp 16 03/23/16 07:49 BP 106/58 03/23/16 07:49 Pulse Ox 86 L 03/23/16 07:49 Intake & Output 03/22/16 03/23/16 03/23/16 18:59 06:59 18:59 Intake Total 960 400 Output Total 1850 Balance -890 400 Intake: IV 600 Lactated Ringers 1,000 ml 600 @ 100 mls/hr IV .Q10H SHELLIE Rx#:[id number] Oral 360 400 Output: Urine 1850 Uretheral (Patino) 800 Other: Voiding Method Indwelling Catheter Toilet # Voids 1 2 - Exam General appearance: no average body habitus, cooperative, no disheveled, no mild distress, no morbidly obese, no acute distress, no obese, no severe distress, no thin - EENT Eyes: no abnormal pupil, no anicteric sclerae, no disc margins sharp, no edentulous, no EOMI, no PERRLA, no fundus normal, no photophobia, no dentition normal, no poor dentition, no ptosis, no scleral icterus, normal appearance ENT: hard of hearing, no hearing grossly normal, no NA/AT, normal oropharynx, no other, no pharyngeal erythema, no thrush, no tonsillar exudates, no tonsillar swelling Ears: bilateral: normal - Neck Neck: no lymphadenopathy, normal ROM, no other, no rigidity, no stridor, no thyromegaly Thyroid: bilateral: normal size - Respiratory Respiratory: bilateral: CTA, diminished - Cardiovascular Rhythm: regular Heart sounds: normal: S1, S2 Abnormal Heart Sounds: systolic murmur, S3 Gallop - Gastrointestinal General gastrointestinal: no absent bowel sounds, decreased bowel sounds, no distended, no hepatomegaly, hyperactive bowel sounds, no normal bowel sounds, no organomegaly, no rigid, no scaphoid, soft, no splenomegaly, no tenderness, no umbilical hernia, no ventral hernia - Integumentary Integumentary: no calor, no cellulitis, no cyanotic, no decreased turgor, no flushed, jaundiced, normal, no normal turgor, pale, rash, no ulcer - Neurologic Neurologic: CNII-XII intact - Musculoskeletal Musculoskeletal: gait normal, generalized weakness, strength equal bilaterally, no right sided weakness, no left sided weakness - Psychiatric Psychiatric: A&O x's 3, appropriate affect, no intact judgment & insight - Labs CBC & Chem 7: 03/22/16 07:04 Labs: Abnormal Lab Results - Last 24 Hours (Table) 03/22/16 03/23/16 Range/Units 16:53 06:39 POC Glucose (mg/dL) 110 H 108 H (75-99) mg/dL Assessment and Plan Plan: 1 post right total knee arthroplasty: Watch patient with dynamic status, resume home meds, GI, DVT, pulmonary prophylaxis protocol abuse. Control patient's pain and advance physical therapy gradually. 2 diabetes: Patient has been on metformin continue medication continue Accu- Chek with sliding scales coverage. 3 hypertension: Has been on Zocor 50 mg daily and Norvasc 5 mg daily Resume medication. 4 COPD: Patient is doing well currently continue Singulair continue inhaler currently. 5 hypothyroidism: Continue patient on Synthroid 50 g daily. 6 allergy: Has been on sertraline and Singulair. 7 estrogen replacement therapy: Has been on Estradiol 0.25 mg 3 times a week. 8 depression: Has been on Zoloft 150 mg daily. 9 severe fibromyalgia: Apparently has been doing very well on Lyrica 200 mg 3 times a day even though the dose is quite bit high resume medication to avoid any withdrawal symptoms but will watch symptoms carefully. 10 DVT prophylaxis: Patient will be on aspirin. GI prophylaxis: Patient will be on Pepcid 20 mg daily. CODE STATUS: Full code. Discharge plan: Subacute rehab on Friday Impression and plan of care have been directed as dictated by the signing physician. Jacinta Hernandez nurse practitioner acting as scribe for signing physician. Time with Patient: Greater than 30
[2016-03-23 11:50] LABS: Glucose,Whole Blood 110 mg/dL (75-99)
[2016-03-23 17:11] LABS: Glucose,Whole Blood 125 mg/dL (75-99)
[2016-03-23] MEDS: LACTATED RINGERS 1,000 ML IV SCH ×2 (17:22→19:02)
[2016-03-23 21:22] LABS: Glucose,Whole Blood 126 mg/dL (75-99)
[2016-03-23] MEDS: LOSARTAN 50 MG TAB PO SCH (21:32)
[2016-03-23] MEDS: SENNOSIDES-DOCUSATE SODIUM 1 EACH TAB PO SCH (21:32)
[2016-03-23] MEDS: MONTELUKAST 10 MG TAB PO SCH (21:32)
[2016-03-24] MEDS: traMADol 50 MG TAB PO PRN ×3 (02:45→18:03)
[2016-03-24] MEDS: LACTATED RINGERS 1,000 ML IV SCH ×2 (05:43→16:58)
[2016-03-24] MEDS: LEVOTHYROXINE 50 MCG TAB PO SCH (06:07)
[2016-03-24 07:09] LABS: Glucose,Whole Blood 99 mg/dL (75-99)
[2016-03-24 07:26] LABS: Basophils # (A) 0.4 k/uL (0-0.2); Basophils % (A) 3 %; CH 28.5; CHCM 32.8; Eosinophils # (A) 0.4 k/uL (0-0.7); Eosinophils % (A) 3 %; HDW 2.94; HGB 12.2 gm/dL (11.4-16.0); Luc # (Auto) 0.23; Luc % (Auto) 2; Lymphocytes # (A) 3.5 k/uL (1.0-4.8); Lymphocytes % (A) 26 %; MCH 28.2 pg (25.0-35.0); MCHC 32.2 g/dL (31.0-37.0); MCV 87.6 fL (80.0-100.0); Mean Platelet Volume 7.8; Monocytes # (A) 0.9 k/uL (0-1.0); Monocytes % (A) 6 %; Neutrophils # (A) 8.2 k/uL (1.3-7.7); Neutrophils % (A) 61 %; RBC 4.33 m/uL (3.80-5.40); RDW 15.1 % (11.5-15.5); WBC 13.6 k/uL (3.8-10.6); WBC (Perox) 13.99
[2016-03-24] MEDS: INSULIN LISPRO (humaLOG) 300 UNIT/3 ML VIAL SQ SCH ×4 (08:28→21:14)
--- NOTE | 2016-03-24 08:59 | P.PN ---
Subjective Principal diagnosis: Status post right total knee arthroplasty This is a 66 year-old female post right total knee arthroplasty. This is post- op day 3. The patient was evaluated in a recliner chair at the bedside today. The patient denies nausea, vomiting, abdominal pain, shortness of breath, and chest pain this morning. She states her pain is controlled at this time. No new complaints today. Objective - Vital Signs Vital signs: Vital Signs Temp 98.4 F 03/24/16 01:42 Pulse 84 03/24/16 01:42 Resp 16 03/24/16 01:42 BP 112/59 03/24/16 01:42 Pulse Ox 94 L 03/24/16 01:42 Intake & Output 03/23/16 03/24/16 03/24/16 18:59 06:59 18:59 Intake Total 118 100 Balance 118 100 Intake: Oral 118 100 Other: Voiding Method Toilet # Voids 2 2 1 - Exam The patient does not appear in acute distress. Alert and orientated x3. Dressing is clean dry and intact. Incision appears fine with no erythema or active drainage. Calf is soft and nontender. Good foot and ankle motion without difficulty. Sensation and circulatory status is intact. - Labs CBC & Chem 7: 03/24/16 07:05 Labs: Abnormal Lab Results - Last 24 Hours (Table) 03/23/16 03/23/16 03/23/16 Range/Units 11:47 17:04 21:19 WBC (3.8-10.6) k/uL Neutrophils # (1.3-7.7) k/uL Basophils # (0-0.2) k/uL POC Glucose (mg/dL) 110 H 125 H 126 H (75-99) mg/dL 03/24/16 Range/Units 07:05 WBC 13.6 H (3.8-10.6) k/uL Neutrophils # 8.2 H (1.3-7.7) k/uL Basophils # 0.4 H (0-0.2) k/uL POC Glucose (mg/dL) (75-99) mg/dL Assessment and Plan (1) Primary osteoarthritis of right knee Status: Acute (2) Status post right knee replacement Status: Acute Plan: 1. Continue pain control 2. Anticoagulation with Aspirin 325 mg BID 3. Continue physical therapy and ambulation 4. Anticipate discharge to skilled rehab tomorrow
[2016-03-24] MEDS: SERTRALINE 50 MG TAB PO SCH (09:17)
[2016-03-24] MEDS: amLODIPine 5 MG TAB PO SCH ×2 (09:18→21:11)
[2016-03-24] MEDS: LORATADINE 10 MG TAB PO SCH (09:18)
[2016-03-24] MEDS: metFORMIN 500 MG TAB PO SCH ×2 (09:18→18:03)
[2016-03-24] MEDS: guaiFENesin 600 MG TABLET.ER PO SCH ×2 (09:18→21:11)
[2016-03-24] MEDS: PREGABALIN 100 MG CAP PO SCH ×3 (09:18→21:11)
[2016-03-24] MEDS: ASPIRIN 325 MG TAB PO SCH ×2 (09:18→21:11)
[2016-03-24] MEDS: FAMOTIDINE 20 MG TAB PO SCH (09:18)
[2016-03-24 11:45] LABS: Glucose,Whole Blood 93 mg/dL (75-99)
[2016-03-24] MEDS: MULTIVITAMINS, THERA 1 EACH TAB PO SCH (13:06)
[2016-03-24 17:04] LABS: Glucose,Whole Blood 108 mg/dL (75-99)
[2016-03-24 21:09] LABS: Glucose,Whole Blood 112 mg/dL (75-99)
[2016-03-24] MEDS: MONTELUKAST 10 MG TAB PO SCH (21:11)
[2016-03-24] MEDS: SENNOSIDES-DOCUSATE SODIUM 1 EACH TAB PO SCH (21:11)
[2016-03-24] MEDS: LOSARTAN 50 MG TAB PO SCH (21:11)
--- NOTE | 2016-03-24 23:41 | P.PN ---
Subjective Principal diagnosis: Post right total knee arthroplasty, diabetes, COPD, allergy, hypertension 66-year-old female mildly overweight [address] Meier patient with past medical history of fibromyalgia, COPD, diabetes, hypertension and chronic pain syndrome who has been suffering from severe arthritis of the right knee with worsening symptom for the last few months. Patient had arthroscopy in the past which had helped for. This time it lately has been having worsening symptoms. After failure of conservative management decision with the help of her primary care physician to go for total knee arthroplasty was done. Patient had surgery successfully with Dr. Hi today was admitted to the floor afterwards her medication will resume patient had been watch hemodynamically has been stable pain is under control. 03/22 white count is 12.9, hemoglobin 11.3. Patient denies any chest pain, shortness of breath nausea or vomiting. She is on aspirin full strength twice daily for DVT prophylaxis. She is planning for subacute rehab on Friday. 03/23: Patient is complaining of increased pain to the right knee today. Pulse ox was noted to be 86%. Will increase tramadol and add in Tylenol No. 3 as needed. 03/24/2016: Patient is doing very well hemodynamically very stable pain is under control doing much better with physical therapy pain has improved some she is done well so far with tramadol and Tylenol No. 3. The plan still to send her probably to rehab tomorrow. Objective - Vital Signs Vital signs: Vital Signs Temp 97.8 F 03/24/16 08:00 Pulse 89 03/24/16 08:00 Resp 16 03/24/16 08:00 BP 129/60 03/24/16 08:00 Pulse Ox 95 03/24/16 08:00 Intake & Output 03/23/16 03/24/16 03/24/16 18:59 06:59 18:59 Intake Total 118 100 340 Balance 118 100 340 Intake: Oral 118 100 340 Other: Voiding Method Toilet # Voids 2 2 1 - Constitutional General appearance: Present: cooperative, no acute distress. Absent: average body habitus, disheveled, mild distress, morbidly obese, obese, severe distress , thin - EENT Eyes: Present: normal appearance. Absent: abnormal pupil, anicteric sclerae, disc margins sharp, edentulous, EOMI, PERRLA, fundus normal, photophobia, dentition normal, poor dentition, ptosis, scleral icterus ENT: Present: normal oropharynx. Absent: hard of hearing, hearing grossly normal, NA/AT, other, pharyngeal erythema, thrush, tonsillar exudates, tonsillar swelling Ears: bilateral: normal - Neck Neck: Present: normal ROM. Absent: lymphadenopathy, other, rigidity, stridor, thyromegaly Carotids: bilateral: upstroke normal, upstroke delayed Thyroid: bilateral: normal size - Respiratory Respiratory: bilateral: CTA, diminished - Cardiovascular Rhythm: regular Heart sounds: normal: S1, S2 Abnormal Heart Sounds: Present: systolic murmur, S3 Gallop - Gastrointestinal General gastrointestinal: Present: decreased bowel sounds, soft. Absent: absent bowel sounds, distended, hepatomegaly, hyperactive bowel sounds, normal bowel sounds, organomegaly, rigid, scaphoid, splenomegaly, tenderness, umbilical hernia, ventral hernia - Integumentary Integumentary Comment(s): Right knee incision looks fine with slight edema below the knee with no redness and warmness no sign of infection. Integumentary: Present: normal, pale, rash. Absent: calor, cellulitis, cyanotic , decreased turgor, flushed, jaundiced, normal turgor, ulcer - Neurologic Neurologic: Present: CNII-XII intact - Musculoskeletal Musculoskeletal: Present: gait normal, generalized weakness - Psychiatric Psychiatric: Present: A&O x's 3, appropriate affect - Labs CBC & Chem 7: 03/24/16 07:05 Labs: Abnormal Lab Results - Last 24 Hours (Table) 03/23/16 03/23/16 03/24/16 Range/Units 17:04 21:19 07:05 WBC 13.6 H (3.8-10.6) k/uL Neutrophils # 8.2 H (1.3-7.7) k/uL Basophils # 0.4 H (0-0.2) k/uL POC Glucose (mg/dL) 125 H 126 H (75-99) mg/dL Assessment and Plan Plan: 1 post right total knee arthroplasty: Watch patient with dynamic status, resume home meds, GI, DVT, pulmonary prophylaxis protocol abuse. Control patient's pain and advance physical therapy gradually. 2 diabetes: Patient has been on metformin continue medication continue Accu- Chek with sliding scales coverage. 3 hypertension: Has been on Zocor 50 mg daily and Norvasc 5 mg daily Resume medication. 4 COPD: Patient is doing well currently continue Singulair continue inhaler currently. 5 hypothyroidism: Continue patient on Synthroid 50 g daily. 6 allergy: Has been on sertraline and Singulair. 7 estrogen replacement therapy: Has been on Estradiol 0.25 mg 3 times a week. 8 depression: Has been on Zoloft 150 mg daily. 9 severe fibromyalgia: Apparently has been doing very well on Lyrica 200 mg 3 times a day even though the dose is quite bit high resume medication to avoid any withdrawal symptoms but will watch symptoms carefully. 10 pain management: Patient was switched to tramadol and Tylenol No. 3 and tolerating it well. 11 DVT prophylaxis: Patient will be on aspirin. Discharge planning: Patient be going to residential rehab tomorrow.
[2016-03-25] MEDS: LACTATED RINGERS 1,000 ML IV SCH ×2 (01:34→09:54)
[2016-03-25 03:40] VITALS: RESP 16
[2016-03-25] MEDS: LEVOTHYROXINE 50 MCG TAB PO SCH (05:37)
[2016-03-25] MEDS: traMADol 50 MG TAB PO PRN ×2 (05:39→13:13)
[2016-03-25 06:45] LABS: Glucose,Whole Blood 95 mg/dL (75-99)
[2016-03-25 06:47] VITALS: BP 113/56; TEMP 98.5
[2016-03-25] MEDS: metFORMIN 500 MG TAB PO SCH (06:57)
[2016-03-25] MEDS: INSULIN LISPRO (humaLOG) 300 UNIT/3 ML VIAL SQ SCH ×2 (06:57→11:36)
[2016-03-25 07:27] VITALS: PULSE 87
--- NOTE | 2016-03-25 08:58 | P.DS ---
Providers Date of admission: 03/21/16 12:52 Expected date of discharge: 03/21/16 Attending physician: Kody Hi Consults: 03/21/16 16:26 Consult Physician Routine Consulting Provider: Kole Lawrence Reason/Comments: post op medical management Do you want consulting provider notified?: Yes Primary care physician: Peter Colvin Kut - Discharge Diagnosis(es) (1) S/P total knee arthroplasty Patient was admitted to the OR on 03/21/2016 to undergo right total knee arthroplasty. She had failed conservative measures as an outpatient and desired proceed after given informed consent. She underwent the above procedure which she tolerated well without complications. Her postoperative hospital course has remained without complication. On day of discharge she is afebrile, vital signs stable, labs within acceptable range, wound is benign, she is neurovascularly intact, calf is soft and nontender,has adequate perfusion throughout the right lower extremity as well as motor and sensation, and abdomen is soft and nontender. She denies any new complaints, tolerating by mouth meds and diet, voiding without difficulty, positive flatus, denies abdominal pain. Review of systems is negative for fever, chills, chest pain, shortness breath, nausea, vomiting, dizziness, headaches, slurred speech, numbness, tingling, weakness or other. Current Visit: Yes Status: Acute Priority: Medium Procedures: Right total knee arthroplasty Patient Condition at Discharge: Good Plan - Discharge Summary New Discharge Prescriptions: Aspirin 325 mg PO BID #60 tab traMADol HCL [Ultram] 50 mg PO Q4HR PRN #90 tab PRN Reason: Pain Discharge Medication List Aspirin [Adult Low Dose Aspirin EC] 81 mg PO DAILY 03/12/16 [History] Cetirizine HCl [Zyrtec] 10 mg PO QAM 03/12/16 [History] Ibuprofen [Motrin] 800 mg PO Q8H PRN 03/12/16 [History] Levothyroxine Sodium [Synthroid] 50 mcg PO QAM 03/12/16 [History] Losartan [Cozaar] 50 mg PO HS 03/12/16 [History] Montelukast [Singulair] 10 mg PO HS 03/12/16 [History] Multivitamins, Thera [Multivitamin] 1 tab PO DAILY 03/12/16 [History] Pregabalin [Lyrica] 100 mg PO BID 03/12/16 [History] Sertraline [Zoloft] 150 mg PO QAM 03/12/16 [History] amLODIPine [Norvasc] 5 mg PO BID 03/12/16 [History] guaiFENesin [Mucinex] 600 mg PO BID 03/12/16 [History] metFORMIN HCL ER [Glucophage Xr] 500 mg PO BID 03/12/16 [History] Estradiol 0.25 mg PO MOWEFR 03/21/16 [History] Aspirin 325 mg PO BID #60 tab 03/22/16 [Rx] traMADol HCL [Ultram] 50 mg PO Q4HR PRN #90 tab 03/22/16 [Rx] Follow up Appointment(s)/Referral(s): Kody Hi MD [STAFF PHYSICIAN] - 2 Weeks Activity/Diet/Wound Care/Special Instructions: Keep wound clean and dry Take meds as directed F/U with Dr. Hi in office Weight bear as tolerated Discharge Disposition: TRANSFER TO SNF/ECF
[2016-03-25] MEDS: FAMOTIDINE 20 MG TAB PO SCH (09:30)
[2016-03-25] MEDS: amLODIPine 5 MG TAB PO SCH (09:30)
[2016-03-25] MEDS: ASPIRIN 325 MG TAB PO SCH (09:30)
[2016-03-25] MEDS: SERTRALINE 50 MG TAB PO SCH (09:31)
[2016-03-25] MEDS: PREGABALIN 100 MG CAP PO SCH (09:31)
[2016-03-25] MEDS: guaiFENesin 600 MG TABLET.ER PO SCH (09:31)
[2016-03-25] MEDS: LORATADINE 10 MG TAB PO SCH (09:31)
--- NOTE | 2016-03-25 10:10 | XR ---
EXAMINATION TYPE: XR chest 2V DATE OF EXAM: 03/25/2016 9:57 AM COMPARISON: 08/20/2012 HISTORY: 66-year-old female placement for rehabilitation TECHNIQUE: Frontal and lateral views FINDINGS: The cardiomediastinal silhouette, aorta, and pulmonary vasculature are within normal limits. There is patchy left basilar opacity. No other consolidation or pleural effusion is seen. IMPRESSION: Some patchy left basilar opacity could represent atelectasis or early developing pneumonia. Correlate with patient's symptoms. Follow-up can be considered.
[2016-03-25 11:07] LABS: Glucose,Whole Blood 90 mg/dL (75-99)
[2016-03-25] MEDS: MULTIVITAMINS, THERA 1 EACH TAB PO SCH (11:36)
[2016-03-25] MEDS: ESTRADIOL 0.5 MG TAB PO SCH (11:36)
--- NOTE | 2016-03-29 10:46 | P.PN ---
Subjective 66-year-old female mildly overweight [address] Meier patient with past medical history of fibromyalgia, COPD, diabetes, hypertension and chronic pain syndrome who has been suffering from severe arthritis of the right knee with worsening symptom for the last few months. Patient had arthroscopy in the past which had helped for. This time it lately has been having worsening symptoms. After failure of conservative management decision with the help of her primary care physician to go for total knee arthroplasty was done. Patient had surgery successfully with Dr. Hi today was admitted to the floor afterwards her medication will resume patient had been watch hemodynamically has been stable pain is under control. 03/22 white count is 12.9, hemoglobin 11.3. Patient denies any chest pain, shortness of breath nausea or vomiting. She is on aspirin full strength twice daily for DVT prophylaxis. She is planning for subacute rehab on Friday. 03/23: Patient is complaining of increased pain to the right knee today. Pulse ox was noted to be 86%. Will increase tramadol and add in Tylenol No. 3 as needed. 03/25: Patient is being prepared for discharge to [facility] today for subacute rehab. Awaiting research from her insurance company. Patient's pain is well controlled. She has been working with physical therapy. Objective - Vital Signs Vital signs: Vital Signs Temp 98.5 F 03/25/16 06:46 Pulse 87 03/25/16 07:24 Resp 16 03/25/16 07:24 BP 113/56 03/25/16 06:46 Pulse Ox 91 L 03/25/16 06:46 - Exam General appearance: no average body habitus, cooperative, no disheveled, no mild distress, no morbidly obese, no acute distress, no obese, no severe distress, no thin - EENT Eyes: no abnormal pupil, no anicteric sclerae, no disc margins sharp, no edentulous, no EOMI, no PERRLA, no fundus normal, no photophobia, no dentition normal, no poor dentition, no ptosis, no scleral icterus, normal appearance ENT: hard of hearing, no hearing grossly normal, no NA/AT, normal oropharynx, no other, no pharyngeal erythema, no thrush, no tonsillar exudates, no tonsillar swelling Ears: bilateral: normal - Neck Neck: no lymphadenopathy, normal ROM, no other, no rigidity, no stridor, no thyromegaly Thyroid: bilateral: normal size - Respiratory Respiratory: bilateral: CTA, diminished - Cardiovascular Rhythm: regular Heart sounds: normal: S1, S2 Abnormal Heart Sounds: systolic murmur, S3 Gallop - Gastrointestinal General gastrointestinal: no absent bowel sounds, decreased bowel sounds, no distended, no hepatomegaly, hyperactive bowel sounds, no normal bowel sounds, no organomegaly, no rigid, no scaphoid, soft, no splenomegaly, no tenderness, no umbilical hernia, no ventral hernia - Integumentary Integumentary: no calor, no cellulitis, no cyanotic, no decreased turgor, no flushed, jaundiced, normal, no normal turgor, pale, rash, no ulcer - Neurologic Neurologic: CNII-XII intact - Musculoskeletal Musculoskeletal: gait normal, generalized weakness, strength equal bilaterally, no right sided weakness, no left sided weakness - Psychiatric Psychiatric: A&O x's 3, appropriate affect, no intact judgment & insight - Labs CBC & Chem 7: 03/24/16 07:05 Assessment and Plan Plan: 1 post right total knee arthroplasty: Watch patient with dynamic status, resume home meds, GI, DVT, pulmonary prophylaxis protocol abuse. Control patient's pain and advance physical therapy gradually. 2 diabetes mellitus type II: Patient has been on metformin continue medication continue Accu-Chek with sliding scales coverage. 3 hypertension: Has been on Zocor 50 mg daily and Norvasc 5 mg daily Resume medication. 4 COPD: Patient is doing well currently continue Singulair continue inhaler currently. 5 hypothyroidism: Continue patient on Synthroid 50 g daily. 6 allergy: Has been on sertraline and Singulair. 7 estrogen replacement therapy: Has been on Estradiol 0.25 mg 3 times a week. 8 depression recurrent: Has been on Zoloft 150 mg daily. 9 severe fibromyalgia: Apparently has been doing very well on Lyrica 200 mg 3 times a day even though the dose is quite bit high resume medication to avoid any withdrawal symptoms but will watch symptoms carefully. 10 DVT prophylaxis: Patient will be on aspirin. GI prophylaxis: Patient will be on Pepcid 20 mg daily. CODE STATUS: Full code. Discharge plan: Subacute rehab on Friday Impression and plan of care have been directed as dictated by the signing physician. Jacinta Hernandez nurse practitioner acting as scribe for signing physician. Time with Patient: Greater than 30
== END 2016-03-25 14:18 | DRG 470 ==
LOC: 2ORMAIN 12:52 → 3SUR 15:39
PROVIDERS: ADMIT Orthopaedic Surgery Sports Medicine; ATTEND Orthopaedic Surgery Sports Medicine
PROC: 0SRC0J9 Replacement of Right Knee Joint with Synthetic Substitute, Cemented, Open Approach (ICD-10-PCS; principal; 2016-03-21 15:00)
DX: M17.11 Unilateral primary osteoarthritis, right knee (principal); J44.9 Chronic obstructive pulmonary disease, unspecified; I10 Essential (primary) hypertension; M79.7 Fibromyalgia; M25.761 Osteophyte, right knee; I34.0 Nonrheumatic mitral (valve) insufficiency; G89.4 Chronic pain syndrome; M24.561 Contracture, right knee; M21.161 Varus deformity, not elsewhere classified, right knee; M79.4 Hypertrophy of (infrapatellar) fat pad; E11.9 Type 2 diabetes mellitus without complications; J45.909 Unspecified asthma, uncomplicated; E03.9 Hypothyroidism, unspecified; E78.5 Hyperlipidemia, unspecified; R26.9 Unspecified abnormalities of gait and mobility; M54.9 Dorsalgia, unspecified; F32.9 Major depressive disorder, single episode, unspecified; R53.1 Weakness; Z87.01 Personal history of pneumonia (recurrent); Z90.710 Acquired absence of both cervix and uterus; Z88.5 Allergy status to narcotic agent; Z87.442 Personal history of urinary calculi; Z82.3 Family history of stroke; Z82.49 Family history of ischemic heart disease and other diseases of the circulatory system; Z79.82 Long term (current) use of aspirin; Z88.1 Allergy status to other antibiotic agents; Z91.040 Latex allergy status; Z79.84 Long term (current) use of oral hypoglycemic drugs; Z79.890 Hormone replacement therapy; Z79.1 Long term (current) use of non-steroidal anti-inflammatories (NSAID); Z79.899 Other long term (current) drug therapy
CPT/HCPCS: 71020; 83036; 85025; 88300

== ENCOUNTER → 2016-05-15 | Outpatient (CLI) | payer MEDICARE ==
[2016-05-15 14:56] LABS: Hemoglobin A1C 5.8 % (4.2-6.1)
== END | disposition home or self-care (01) ==
LOC: LABWHC1 10:48
PROVIDERS: ATTEND Family Medicine
DX: E11.9 Type 2 diabetes mellitus without complications (principal); E03.9 Hypothyroidism, unspecified
CPT/HCPCS: 36415; 82947; 83036; 84443

== ENCOUNTER → 2017-09-03 | Outpatient (CLI) | payer MEDICARE ==
[2017-09-03 12:46] LABS: ALT 39 U/L (9-52); AST 29 U/L (14-36); Alkaline Phosphatase 73 U/L (38-126); Anion Gap 11 mmol/L; Blood Urea Nitrogen 18 mg/dL (7-17); Calcium 9.1 mg/dL (8.4-10.2); Carbon Dioxide 24 mmol/L (22-30); Chloride 111 mmol/L (98-107); Cholesterol 166 mg/dL (<200); Creatine Kinase 71 U/L (30-135); Glucose 100 mg/dL (74-99); HDL Cholesterol 33 mg/dL (40-60); LDL Cholesterol,Calculated 100 mg/dL (0-99); Potassium 4.7 mmol/L (3.5-5.1); Sodium 146 mmol/L (137-145); Total Bilirubin 0.2 mg/dL (0.2-1.3); Total Protein 6.5 g/dL (6.3-8.2); Triglycerides 165 mg/dL (<150)
== END | disposition home or self-care (01) ==
LOC: LABWHC1 11:12
PROVIDERS: ATTEND Family Medicine
DX: E78.5 Hyperlipidemia, unspecified (principal)
CPT/HCPCS: 36415; 80053; 80061; 82550

== ENCOUNTER 2018-06-04 07:09 | Inpatient (IN) | payer MEDICARE ==
[2018-06-04] MEDS ORDERED: IPRATROPIUM-ALBUTEROL 3 ML NEB INHALATION STA (07:30)
--- NOTE | 2018-06-04 07:30 | ED ---
Upper Extremity HPI - General Stated Complaint: URI Time Seen by Provider: 06/04/18 07:19 Source: patient, RN notes reviewed Mode of arrival: ambulatory Limitations: no limitations - History of Present Illness Initial Comments: This is a 68-year-old female presents emergency Department with chief complaint of cough and cold-like symptoms last 12 days. Patient states that she did see her PCP was placed on azithromycin and prednisone and states that has not improved at states that she worsen. She's had increased cough, shortness of breath and wheezing. She also complaint of facial pain and pressure with her sinus congestion. Patient does take Motrin 3 times a day and states that she still had subjective fevers. Patient denies any ear pain, sore throat currently. Denies any neck pain or neck stiffness. Patient does have underlying ALLERGY/asthma. Patient states that she sees Dr. Marshall. - Related Data Home Medications Medication Instructions Recorded Confirmed Cetirizine HCl [Zyrtec] 10 mg PO QAM 03/12/16 06/04/18 Ibuprofen [Motrin] 800 mg PO Q8H PRN 03/12/16 06/04/18 Levothyroxine Sodium [Synthroid] 50 mcg PO QAM 03/12/16 06/04/18 Losartan [Cozaar] 50 mg PO DAILY 03/12/16 06/04/18 Montelukast [Singulair] 10 mg PO HS 03/12/16 06/04/18 Sertraline [Zoloft] 150 mg PO QAM 03/12/16 06/04/18 guaiFENesin [Mucinex] 600 mg PO BID PRN 03/12/16 06/04/18 metFORMIN HCL ER [Glucophage Xr] 500 mg PO BID 03/12/16 06/04/18 ALPRAZolam [Xanax] 0.5 mg PO DAILY PRN 06/04/18 06/04/18 Acyclovir 1 applic TOPICAL DAILY PRN 06/04/18 06/04/18 Aspirin EC [Ecotrin Low Dose] 81 mg PO 06/04/18 06/04/18 Benzonatate [Tessalon Perles] 200 mg PO TID PRN 06/04/18 06/04/18 Fluticasone Nasal [place] [Flonase 1 spray EA NOSTRIL 06/04/18 06/04/18 Nasal [place]] Fluticasone/Salmeterol [Advair 1 puff INHALATION RT-BID PRN 06/04/18 06/04/18 250-50 Diskus] Focus Vitamin 1 tab PO BID@1200,2100 06/04/18 06/04/18 Pravastatin Sodium [Pravachol] 20 mg PO HS 06/04/18 06/04/18 Pregabalin [Lyrica] 100 mg PO BID 06/04/18 06/04/18 amLODIPine [Norvasc] 2.5 mg PO BID 06/04/18 06/04/18 Allergies Allergy/AdvReac Type Severity Reaction Status Date / Time acetaminophen [From Lortab] Allergy Hallucinati Verified 06/04/18 07:55 ons cephalexin monohydrate Allergy Itching Verified 06/04/18 07:55 [From Keflex] codeine Allergy Hallucinati Verified 06/04/18 07:55 ons hydrocodone bitartrate Allergy Hallucinati Verified 06/04/18 07:55 [From Lortab] ons latex Allergy Rash/Hives Verified 06/04/18 07:55 Review of Systems ROS Statement: Those systems with pertinent positive or pertinent negative responses have been documented in the HPI. ROS Other: All systems not noted in ROS Statement are negative. Past Medical History Past Medical History: COPD, Diabetes Mellitus, Fibromyalgia, Hypertension, Pneumonia Additional Past Medical History / Comment(s): CURRENTLY MAY HAVE A KIDNEY STONE (BASE ON UA RESULTS) DR. GUZMAN ORDERED AN ABD US AND WAS DONE TODAY, 02/1716. CHRONIC BACK AND KNEE PAIN. Chronic Bronchitis; Mitral Valve Regurgitation. KIDNEY STONES History of Any Multi-Drug Resistant Organisms: None Reported Past Surgical History: Hysterectomy, Orthopedic Surgery Additional Past Surgical History / Comment(s): ARTHRO OF RIGHT KNEE. Past Anesthesia/Blood Transfusion Reactions: No Reported Reaction Past Psychological History: Depression Smoking Status: Never smoker Past Alcohol Use History: Rare Past Drug Use History: None Reported - Past Family History Mother Family Medical History: No Reported History Additional Family Medical History / Comment(s): DUE TO STROKE Brother(s) Family Medical History: Myocardial Infarction ([place]) Additional Family Medical History / Comment(s): OTHER BROTHER: "HEART PROBLEMS" Father Additional Family Medical History / Comment(s): FROM STROKE General Exam General appearance: alert, in no apparent distress Head exam: Present: atraumatic, normocephalic, normal inspection Eye exam: Present: normal appearance, PERRL, EOMI. Absent: scleral icterus, conjunctival injection, periorbital swelling ENT exam: Present: normal exam, normal oropharynx, mucous membranes moist Neck exam: Present: normal inspection, full ROM. Absent: tenderness, meningismus, lymphadenopathy Respiratory exam: Present: wheezes, rhonchi. Absent: normal lung sounds bilaterally, respiratory distress, rales, stridor Cardiovascular Exam: Present: regular rate, normal rhythm, normal heart sounds. Absent: systolic murmur, diastolic murmur, rubs, gallop, clicks Neurological exam: Present: alert, oriented X3, CN II-XII intact Skin exam: Present: warm, dry, intact, normal color. Absent: rash Course Vital Signs 06/04/18 06/04/18 06/04/18 07:30 08:15 08:23 Temperature 98.4 F Pulse Rate 90 88 89 Respiratory 20 Rate Blood Pressure 163/80 O2 Sat by Pulse 93 L Oximetry 06/04/18 09:10 Temperature Pulse Rate 82 Respiratory 18 Rate Blood Pressure 162/75 O2 Sat by Pulse 95 Oximetry Medical Decision Making - Medical Decision Making 68-year-old female presented for cough congestion shortness of breath. Patient chest x-ray shows no definite pneumonia though suspected early pneumonia. Patient's fell outpatient treatment on antibiotics. Patient does have underlying asthma. Patient will be admitted for IV steroids, antibiotics - Lab Data Result diagrams: 06/04/18 07:40 06/04/18 07:40 Lab Results 06/04/18 06/04/18 06/04/18 Range/Units 07:40 07:40 07:40 WBC 9.5 (3.8-10.6) k/uL RBC 4.48 (3.80-5.40) m/uL Hgb 12.7 (11.4-16.0) gm/dL Hct 39.1 (34.0-46.0) % MCV 87.3 (80.0-100.0) fL MCH 28.3 (25.0-35.0) pg MCHC 32.4 (31.0-37.0) g/dL RDW 15.0 (11.5-15.5) % Plt Count 215 (150-450) k/uL Neutrophils % 69 % Lymphocytes % 19 % Monocytes % 6 % Eosinophils % 4 % Basophils % 0 % Neutrophils # 6.5 (1.3-7.7) k/uL Lymphocytes # 1.8 (1.0-4.8) k/uL Monocytes # 0.6 (0-1.0) k/uL Eosinophils # 0.4 (0-0.7) k/uL Basophils # 0.0 (0-0.2) k/uL PT 9.5 (9.0-12.0) sec INR 0.9 (<1.2) APTT 20.9 L (22.0-30.0) sec Sodium 142 (137-145) mmol/L Potassium 4.0 (3.5-5.1) mmol/L Chloride 109 H (98-107) mmol/L Carbon Dioxide 24 (22-30) mmol/L Anion Gap 9 mmol/L BUN 11 (7-17) mg/dL Creatinine 0.53 (0.52-1.04) mg/dL Est GFR (CKD-EPI)AfAm >90 (>60 ml/min/1.73 sqM) Est GFR (CKD-EPI)NonAf >90 (>60 ml/min/1.73 sqM) Glucose 147 H (74-99) mg/dL Plasma Lactic Acid Dmitriy (0.7-2.0) mmol/L Calcium 9.0 (8.4-10.2) mg/dL Magnesium 1.9 (1.6-2.3) mg/dL Total Bilirubin 0.3 (0.2-1.3) mg/dL AST 24 (14-36) U/L ALT 42 (9-52) U/L Alkaline Phosphatase 102 (38-126) U/L Troponin I (0.000-0.034) ng/mL NT-Pro-B Natriuret Pep pg/mL Total Protein 6.8 (6.3-8.2) g/dL Albumin 3.9 (3.5-5.0) g/dL Influenza Type A RNA (Not Detectd) Influenza Type B (PCR) (Not Detectd) 06/04/18 06/04/18 06/04/18 Range/Units 07:40 07:40 07:40 WBC (3.8-10.6) k/uL RBC (3.80-5.40) m/uL Hgb (11.4-16.0) gm/dL Hct (34.0-46.0) % MCV (80.0-100.0) fL MCH (25.0-35.0) pg MCHC (31.0-37.0) g/dL RDW (11.5-15.5) % Plt Count (150-450) k/uL Neutrophils % % Lymphocytes % % Monocytes % % Eosinophils % % Basophils % % Neutrophils # (1.3-7.7) k/uL Lymphocytes # (1.0-4.8) k/uL Monocytes # (0-1.0) k/uL Eosinophils # (0-0.7) k/uL Basophils # (0-0.2) k/uL PT (9.0-12.0) sec INR (<1.2) APTT (22.0-30.0) sec Sodium (137-145) mmol/L Potassium (3.5-5.1) mmol/L Chloride (98-107) mmol/L Carbon Dioxide (22-30) mmol/L Anion Gap mmol/L BUN (7-17) mg/dL Creatinine (0.52-1.04) mg/dL Est GFR (CKD-EPI)AfAm (>60 ml/min/1.73 sqM) Est GFR (CKD-EPI)NonAf (>60 ml/min/1.73 sqM) Glucose (74-99) mg/dL Plasma Lactic Acid Dmitriy (0.7-2.0) mmol/L Calcium (8.4-10.2) mg/dL Magnesium (1.6-2.3) mg/dL Total Bilirubin (0.2-1.3) mg/dL AST (14-36) U/L ALT (9-52) U/L Alkaline Phosphatase (38-126) U/L Troponin I <0.012 (0.000-0.034) ng/mL NT-Pro-B Natriuret Pep 63 pg/mL Total Protein (6.3-8.2) g/dL Albumin (3.5-5.0) g/dL Influenza Type A RNA Not Detected (Not Detectd) Influenza Type B (PCR) Not Detected (Not Detectd) 06/04/18 Range/Units 07:40 WBC (3.8-10.6) k/uL RBC (3.80-5.40) m/uL Hgb (11.4-16.0) gm/dL Hct (34.0-46.0) % MCV (80.0-100.0) fL MCH (25.0-35.0) pg MCHC (31.0-37.0) g/dL RDW (11.5-15.5) % Plt Count (150-450) k/uL Neutrophils % % Lymphocytes % % Monocytes % % Eosinophils % % Basophils % % Neutrophils # (1.3-7.7) k/uL Lymphocytes # (1.0-4.8) k/uL Monocytes # (0-1.0) k/uL Eosinophils # (0-0.7) k/uL Basophils # (0-0.2) k/uL PT (9.0-12.0) sec INR (<1.2) APTT (22.0-30.0) sec Sodium (137-145) mmol/L Potassium (3.5-5.1) mmol/L Chloride (98-107) mmol/L Carbon Dioxide (22-30) mmol/L Anion Gap mmol/L BUN (7-17) mg/dL Creatinine (0.52-1.04) mg/dL Est GFR (CKD-EPI)AfAm (>60 ml/min/1.73 sqM) Est GFR (CKD-EPI)NonAf (>60 ml/min/1.73 sqM) Glucose (74-99) mg/dL Plasma Lactic Acid Dmitriy 1.2 (0.7-2.0) mmol/L Calcium (8.4-10.2) mg/dL Magnesium (1.6-2.3) mg/dL Total Bilirubin (0.2-1.3) mg/dL AST (14-36) U/L ALT (9-52) U/L Alkaline Phosphatase (38-126) U/L Troponin I (0.000-0.034) ng/mL NT-Pro-B Natriuret Pep pg/mL Total Protein (6.3-8.2) g/dL Albumin (3.5-5.0) g/dL Influenza Type A RNA (Not Detectd) Influenza Type B (PCR) (Not Detectd) Disposition Clinical Impression: Failure of outpatient treatment, Tracheobronchitis, Asthma Disposition: ADMITTED IP TO THIS [facility] Condition: Fair Referrals: Peter Guzman MD [Primary Care Provider] - 1-2 days
[2018-06-04] MEDS ORDERED: KETOROLAC 30 MG/ML 1 ML VIAL IVP STA (07:42)
[2018-06-04 08:08] LABS: Basophils % (A) 0 %; Eosinophils # (A) 0.4 k/uL (0-0.7); Eosinophils % (A) 4 %; HCT 39.1 % (34.0-46.0); HGB 12.7 gm/dL (11.4-16.0); Lymphocytes # (A) 1.8 k/uL (1.0-4.8); Lymphocytes % (A) 19 %; MCH 28.3 pg (25.0-35.0); MCHC 32.4 g/dL (31.0-37.0); MCV 87.3 fL (80.0-100.0); Mean Platelet Volume 6.7; Monocytes # (A) 0.6 k/uL (0-1.0); Monocytes % (A) 6 %; Neutrophils # (A) 6.5 k/uL (1.3-7.7); Neutrophils % (A) 69 %; Platelet Count 215 k/uL (150-450); RBC 4.48 m/uL (3.80-5.40); WBC 9.5 k/uL (3.8-10.6)
[2018-06-04 08:17] LABS: ALT 42 U/L (9-52); AST 24 U/L (14-36); Albumin 3.9 g/dL (3.5-5.0); Alkaline Phosphatase 102 U/L (38-126); Anion Gap 9 mmol/L; Blood Urea Nitrogen 11 mg/dL (7-17); Carbon Dioxide 24 mmol/L (22-30); Chloride 109 mmol/L (98-107); Glucose 147 mg/dL (74-99); Magnesium 1.9 mg/dL (1.6-2.3); Sodium 142 mmol/L (137-145); Total Bilirubin 0.3 mg/dL (0.2-1.3); Total Protein 6.8 g/dL (6.3-8.2)
[2018-06-04 08:23] LABS: INR 0.9 (<1.2); Prothrombin Time 9.5 sec (9.0-12.0)
[2018-06-04 08:38] LABS: Partial Thromboplastin Time 20.9 sec (22.0-30.0)
--- NOTE | 2018-06-04 08:48 | XR ---
EXAMINATION TYPE: XR chest 2V DATE OF EXAM: 06/04/2018 COMPARISON: 03/25/2016 TECHNIQUE: PA and lateral views submitted. HISTORY: Shortness of breath FINDINGS: The lungs are clear and there is no pneumothorax, pleural effusion, or focal pneumonia. There is pr ominence the right suprahilar region. No overt failure. Biapical pleural thickening. Hypertrophic and degenerative change of the spine. IMPRESSION: 1. No acute process. Mild prominence of the right suprahilar region could be on the basis of aortic a neurysm or adenopathy. Follow up CT chest recommended.
[2018-06-04] MEDS ORDERED: IPRATROPIUM-ALBUTEROL 3 ML NEB INHALATION PRN (09:23)
[2018-06-04] MEDS ORDERED: methylPREDNISolone SOD SUCCI 125 MG/2 ML VIAL IV STA (09:23)
[2018-06-04] MEDS ORDERED: LEVOFLOXACIN 750MG-D5W PMX 750 MG in DEXTROSE/WATER 1 150ML.BAG IVPB STA (09:24)
[2018-06-04 10:45] VITALS: BMI 31.9
[2018-06-04] MEDS: methylPREDNISolone SOD SUCCI 125 MG/2 ML VIAL IV SCH ×3 (11:49→23:49)
[2018-06-04] MEDS ORDERED: IBUPROFEN 800 MG TAB PO PRN (11:51)
[2018-06-04] MEDS ORDERED: BENZONATATE 100 MG CAP PO PRN (11:51)
[2018-06-04] MEDS ORDERED: ALPRAZolam 0.5 MG TAB PO PRN (11:51)
[2018-06-04 12:39] LABS: Glucose,Whole Blood 223 mg/dL (75-99)
[2018-06-04] MEDS: LOSARTAN 50 MG TAB PO SCH (12:45)
[2018-06-04] MEDS: PREGABALIN 100 MG CAP PO SCH ×2 (12:45→21:51)
[2018-06-04] MEDS: amLODIPine 2.5 MG TAB PO SCH ×2 (12:45→21:52)
[2018-06-04] MEDS: SERTRALINE 100 MG TAB PO SCH (12:45)
[2018-06-04] MEDS: metFORMIN 500 MG TAB PO SCH ×2 (12:45→17:50)
[2018-06-04] MEDS: LORATADINE 10 MG TAB PO SCH (12:45)
[2018-06-04] MEDS: LEVOTHYROXINE 50 MCG TAB PO SCH (13:00)
[2018-06-04] MEDS: INSULIN ASPART (NovoLOG) 100 UNIT/ML VIAL SQ SCH ×3 (13:00→21:02)
--- NOTE | 2018-06-04 14:32 | P.HPIM ---
History of Present Illness H&P Date: 06/04/18 Chief Complaint: Difficulty breathing This is a 68-year-old female patient of Dr. Meier with past medical history of asthma, diabetes mellitus type 2, fibromyalgia, gastroesophageal reflux disease, hypertension, hyperlipidemia, obstructive sleep apnea via on CPAP, seasonal ALLERGIES. Patient also follows with Dr. Marin and sees him twice a year. She has a history of pneumonia in 2012 and his nebulizer at home but does not use it. She does not have oxygen. Patient states that she has been short of breath since June 23 first. She thought she had cold. She went to see Dr. Joseph and she was having wheezing so he put her on Medrol Dosepak and azithromycin. She states she was functioning okay but was continuing to feel worse. Last night she had a temperature 100.0. She has a cough with green and yellow sputum production. She came into [facility] emergency center for evaluation. She was afebrile, blood pressure 163/80, pulse ox 93% on room air, heart rate 90. CBC is within normal limits, electrolytes essentially normal, creatinine 0.53, blood sugar 147, liver function tests normal. Influenza testing negative. Troponin negative. Patient is started on Levaquin, nebulizer treatments and admitted to the [facility] floor. Patient also complains of a headache across her forehead and neck area when she coughs. Review of Systems All systems: negative Constitutional: Reports fatigue, Reports fever, Reports malaise, Reports poor appetite, Denies chills Eyes: denies blurred vision, denies pain Ears, nose, mouth and throat: Reports headache, Denies dysphagia, Denies sore throat, Denies vertigo Cardiovascular: Denies chest pain, Denies decreased exercise tolerance, Denies dyspnea on exertion, Denies leg edema, Denies shortness of breath, Denies syncope Respiratory: Reports cough, Reports cough with sputum, Reports dyspnea, Reports wheezing, Denies excessive sputum, Denies hemoptysis, Denies home oxygen Gastrointestinal: Denies abdominal pain, Denies diarrhea, Denies nausea, Denies vomiting Genitourinary: Denies dysuria, Denies hematuria, Denies urgency, Denies urinary frequency Musculoskeletal: Denies frequent falls, Denies gait dysfunction, Denies muscle weakness, Denies myalgias Integumentary: Denies pruritus, Denies rash, Denies wounds Neurological: Denies aphasia, Denies change in mentation, Denies change in speech, Denies numbness, Denies seizures, Denies vertigo, Denies weakness Psychiatric: Denies anxiety, Denies depression Endocrine: Denies fatigue, Denies weight change Past Medical History Past Medical History: Asthma, Diabetes Mellitus, Fibromyalgia, GERD/Reflux, GI Bleed, Hyperlipidemia, Hypertension, Pneumonia, Sleep Apnea/CPAP/BIPAP Additional Past Medical History / Comment(s): Acute respiratory failure when she had bilateral pneumonia, chronic bronchitis, seasonal allergies, sinus problems, JUSTIN with CPap use, "Pre" diabetic, neuropathy R foot, heart murmur, MVR, past kidney stones with surgery, lower GI bleed, benign colon polyps, L knee bursitis, RLS, anemia, past foot fracture and bilateral wrist fractures, chronic fatigue, hypothyroid, UTIs. History of Any Multi-Drug Resistant Organisms: None Reported Past Surgical History: Heart Catheterization, Hysterectomy, Joint Replacement, Orthopedic Surgery, Tonsillectomy Additional Past Surgical History / Comment(s): Total R knee arthroplasty, laser surgery for kidney stones, L above eye cyst removed and cyst removed from back of head, R wrist fracture with surgery, colonoscopy/polypectomy, precancerous skin lesions removed, R foot bunionectomy. Past Anesthesia/Blood Transfusion Reactions: No Reported Reaction Smoking Status: Never smoker Additional Past Alcohol Use History / Comment(s): The patient is a lifelong nonsmoker, no marijuana or illicit drug use, alcohol use is rare. Patient does have a CPAP and nebulizer. No home oxygen. - Past Family History Mother Family Medical History: CVA/TIA Additional Family Medical History / Comment(s): DUE TO STROKE AT THE AGE OF 86YRS. Brother(s) Family Medical History: Myocardial Infarction ([place]) Additional Family Medical History / Comment(s): ONE BROTHER OF A SD IN HIS EARLY 60S. OTHER BROTHER: "HEART PROBLEMS" Father Family Medical History: CVA/TIA Additional Family Medical History / Comment(s): FROM STROKE at 75 yrs. Daughter(s) Additional Family Medical History / Comment(s): The patient has 3 daughters. One is being evaluated for cancer, one has history of rheumatoid arthritis and one with no major medical problems. Patient does not have any sisters. Medications and Allergies Home Medications Medication Instructions Recorded Confirmed Type Cetirizine HCl [Zyrtec] 10 mg PO QAM 03/12/16 06/04/18 History Ibuprofen [Motrin] 800 mg PO Q8H PRN 03/12/16 06/04/18 History Levothyroxine Sodium [Synthroid] 50 mcg PO QAM 03/12/16 06/04/18 History Losartan [Cozaar] 50 mg PO DAILY 03/12/16 06/04/18 History Montelukast [Singulair] 10 mg PO HS 03/12/16 06/04/18 History Sertraline [Zoloft] 150 mg PO QAM 03/12/16 06/04/18 History guaiFENesin [Mucinex] 600 mg PO BID PRN 03/12/16 06/04/18 History metFORMIN HCL ER [Glucophage Xr] 500 mg PO BID 03/12/16 06/04/18 History ALPRAZolam [Xanax] 0.5 mg PO DAILY PRN 06/04/18 06/04/18 History Acyclovir 1 applic TOPICAL DAILY PRN 06/04/18 06/04/18 History Aspirin EC [Ecotrin Low Dose] 81 mg PO HS 06/04/18 06/04/18 History Benzonatate [Tessalon Perles] 200 mg PO TID PRN 06/04/18 06/04/18 History Fluticasone Nasal [place] [Flonase 1 spray EA NOSTRIL HS 06/04/18 06/04/[address] [place]] Fluticasone/Salmeterol [Advair 1 puff INHALATION RT-BID PRN 06/04/18 06/04/18 History 250-50 Diskus] Focus Vitamin 1 tab PO BID@1200,2100 06/04/18 06/04/18 History Pravastatin Sodium [Pravachol] 20 mg PO HS 06/04/18 06/04/18 History Pregabalin [Lyrica] 100 mg PO BID 06/04/18 06/04/18 History amLODIPine [Norvasc] 2.5 mg PO BID 06/04/18 06/04/18 History Allergies Allergy/AdvReac Type Severity Reaction Status Date / Time acetaminophen [From Lortab] Allergy Hallucinati Verified 06/04/18 07:55 ons cephalexin monohydrate Allergy Itching Verified 06/04/18 07:55 [From Keflex] codeine Allergy Hallucinati Verified 06/04/18 07:55 ons hydrocodone bitartrate Allergy Hallucinati Verified 06/04/18 07:55 [From Lortab] ons latex Allergy Rash/Hives Verified 06/04/18 07:55 Physical Exam Vitals: Vital Signs Temp Pulse Resp BP Pulse Ox 06/04/18 10:38 80 18 148/72 100 06/04/18 09:10 82 18 162/75 95 06/04/18 08:23 89 06/04/18 08:15 88 06/04/18 07:30 98.4 F 90 20 163/80 93 L Intake and Output 06/03/18 06/04/18 06/04/18 22:59 06:59 14:59 Intake Total 100 Balance 100 Intake: Amount of Fluid Infused ( 100 ml) Other: Weight 89.811 kg Gen: This is a 68-year-old female. She is resting in bed appears to be comfortable at rest. HEENT: Head is atraumatic, normocephalic. Pupils equal, round. Sclerae is anic teric. NECK: Supple. No JVD. No lymphadenopathy. No thyromegaly. LUNGS: Expiratory wheeze and rhonchi, prolonged expiration. No intercostal retractions. HEART: Regular rate and rhythm. No murmur. ABDOMEN: Soft. Bowel sounds are present. No masses. No tenderness. EXTREMITIES: No pedal edema. No calf tenderness. Small abrasion to the left great toe. NEUROLOGICAL: Patient is awake, alert and oriented x3. Cranial nerves 2 through 12 are grossly intact. Results CBC & Chem 7: 06/04/18 07:40 06/04/18 07:40 Labs: Abnormal Lab Results - Last 24 Hours (Table) 06/04/18 06/04/18 Range/Units 07:40 07:40 APTT 20.9 L (22.0-30.0) sec Chloride 109 H (98-107) mmol/L Glucose 147 H (74-99) mg/dL Thrombosis Risk Factor Assmnt - DVT/VTE Prophylaxis DVT/VTE Prophylaxis: Pharmacologic Prophylaxis ordered - Choose All That Apply Any of the Below Risk Factors Present?: Yes Each Factor Represents 1 point: Obesity (BMI >25), Serious lung disease incl. pneumonia (< 1month) Other Risk Factors: Yes Each Risk Factor Represents 2 Points: Age 61-74 years Other congenital or acquired thrombophilia - If yes, enter type in comment: No Thrombosis Risk Factor Assessment Total Risk Factor Score: 4 Thrombosis Risk Factor Assessment Level: Moderate Risk Assessment and Plan Plan: 1. Reactive airway disease with probable underlying asthma not previously diagnosed. Continue DuoNeb treatments 4 times daily and every 4 hours as needed, Pulmicort 0.5 mg twice daily added. Continue Levaquin 500 mg daily, Solu-Medrol 60 mg IV every 6 hours. Continue Singulair 10 mg at bedtime, Tessalon Perles 200 mg 3 times daily as needed, Mucinex twice daily as needed. 2. Seasonal ALLERGIES. Continue Singulair 10 mg at bedtime, Claritin 10 mg daily. 3. Headache secondary to cough. Continue Toradol 15 mg every 6 hours as needed. 4. Diabetes mellitus type 2. Continue metformin 250 mg twice daily and NovoLog scale. 5. Hypothyroidism. Continue levothyroxine 50 g daily. 6. Hypertension. Continue Norvasc 25 mg twice daily, losartan 50 mg daily. 7. Hyperlipidemia. Continue Pravachol 20 mg at bedtime. 8. Recurrent depression and generalized anxiety disorder. Continue Zoloft 150 mg daily, Xanax as needed. 9. Fibromyalgia. Continue Lyrica 100 mg twice daily. 10. DVT prophylaxis. Lovenox. 11. GI prophylaxis. Pepcid. Patient will be admitted to the hospital for a minimum of 2 night stay. Discharge plan: Discharge home Impression and plan of care have been directed as dictated by the signing physician. Jacinta Hernandez nurse practitioner acting as scribe for signing physician.
[2018-06-04] MEDS: IPRATROPIUM-ALBUTEROL 3 ML NEB INHALATION SCH ×2 (15:46→20:12)
[2018-06-04] MEDS: KETOROLAC 30 MG/ML 1 ML VIAL IVP PRN ×2 (15:59→23:52)
[2018-06-04 17:29] LABS: Glucose,Whole Blood 274 mg/dL (75-99)
[2018-06-04] MEDS: BUDESONIDE 0.5 MG/2 ML NEBU INHALATION SCH (20:13)
[2018-06-04 20:44] LABS: Glucose,Whole Blood 245 mg/dL (75-99)
[2018-06-04] MEDS: FLUTICASONE 50MCG/SPRAY NASAL 16GM EA NOSTRIL SCH ×2 (21:48→21:55)
[2018-06-04] MEDS: MONTELUKAST 10 MG TAB PO SCH (21:50)
[2018-06-04] MEDS: PRAVASTATIN SODIUM 20 MG TAB PO SCH (21:50)
[2018-06-04] MEDS: MELATONIN 3 MG TABLET PO SCH (21:51)
[2018-06-04] MEDS: ASPIRIN 81 MG PO SCH (21:52)
[2018-06-05] MEDS: methylPREDNISolone SOD SUCCI 125 MG/2 ML VIAL IV SCH ×2 (05:23→12:05)
[2018-06-05] MEDS: LEVOTHYROXINE 50 MCG TAB PO SCH (05:24)
[2018-06-05 06:59] LABS: Glucose,Whole Blood 249 mg/dL (75-99)
[2018-06-05] MEDS: BUDESONIDE 0.5 MG/2 ML NEBU INHALATION SCH ×2 (07:39→21:35)
[2018-06-05] MEDS: IPRATROPIUM-ALBUTEROL 3 ML NEB INHALATION SCH ×4 (07:39→21:34)
[2018-06-05] MEDS: LORATADINE 10 MG TAB PO SCH (08:07)
[2018-06-05] MEDS: SERTRALINE 100 MG TAB PO SCH (08:07)
[2018-06-05] MEDS: LOSARTAN 50 MG TAB PO SCH (08:08)
[2018-06-05] MEDS: metFORMIN 500 MG TAB PO SCH ×2 (08:08→17:41)
[2018-06-05] MEDS: amLODIPine 2.5 MG TAB PO SCH ×2 (08:08→22:04)
[2018-06-05] MEDS: INSULIN ASPART (NovoLOG) 100 UNIT/ML VIAL SQ SCH ×4 (08:08→21:33)
[2018-06-05] MEDS: ENOXAPARIN 40 MG/0.4 ML SYRINGE SQ SCH (08:08)
[2018-06-05] MEDS: PREGABALIN 100 MG CAP PO SCH ×2 (08:08→22:04)
[2018-06-05] MEDS: FAMOTIDINE 20 MG TAB PO SCH (08:13)
[2018-06-05] MEDS: KETOROLAC 30 MG/ML 1 ML VIAL IVP PRN ×3 (08:23→22:36)
[2018-06-05] MEDS ORDERED: LEVOFLOXACIN 500MG-D5W PMX 500 MG in DEXTROSE/WATER 1 100ML.BAG IVPB SCH (09:00)
[2018-06-05] MEDS: INSULIN DETEMIR (LEVEMIR) 100 UNIT/ML SYR SQ SCH (11:01)
[2018-06-05 12:16] LABS: Glucose,Whole Blood 234 mg/dL (75-99)
--- NOTE | 2018-06-05 13:03 | P.PN ---
Subjective Progress Note Date: 06/05/18 This is a 68-year-old female patient of Dr. Meier with past medical history of asthma, diabetes mellitus type 2, fibromyalgia, gastroesophageal reflux disease, hypertension, hyperlipidemia, obstructive sleep apnea via on CPAP, seasonal ALLERGIES. Patient also follows with Dr. Marin and sees him twice a year. She has a history of pneumonia in 2012 and his nebulizer at home but does not use it. She does not have oxygen. Patient states that she has been short of breath since June 23 first. She thought she had cold. She went to see Dr. Joseph and she was having wheezing so he put her on Medrol Dosepak and azithromycin. She states she was functioning okay but was continuing to feel worse. Last night she had a temperature 100.0. She has a cough with green and yellow sputum production. She came into [facility] emergency center for evaluation. She was afebrile, blood pressure 163/80, pulse ox 93% on room air, heart rate 90. CBC is within normal limits, electrolytes essentially normal, creatinine 0.53, blood sugar 147, liver function tests normal. Influenza testing negative. Troponin negative. Patient is started on Levaquin, nebulizer treatments and admitted to the [facility] floor. Patient also complains of a headache across her forehead and neck area when she coughs. 06/05: Patient has been afebrile, heart rate 76, blood pressure 149/76, pulse ox 94% on 3 L nasal cannula. Blood sugars running in the 200s. Levemir 10 units daily will be added. She is continued on NovoLog scale. Hemoglobin A1c is pending. Sputum culture in progress. Blood cultures showing no growth after 24 hours. Magnesium added. We will decrease Solu-Medrol to 40 mg every 8 hours. Patient is followed by Dr. Malave. Possible discharge tomorrow Review of Systems Constitutional: Reports fatigue, Reports fever, Reports malaise, Reports poor appetite, Denies chills Eyes: denies blurred vision, denies pain Ears, nose, mouth and throat: Reports headache, Denies dysphagia, Denies sore throat, Denies vertigo Cardiovascular: Denies chest pain, Denies decreased exercise tolerance, Denies dyspnea on exertion, Denies leg edema, Denies shortness of breath, Denies syncope Respiratory: Reports cough, Reports cough with sputum, Reports dyspnea, Reports wheezing, Denies excessive sputum, Denies hemoptysis, Denies home oxygen Gastrointestinal: Denies abdominal pain, Denies diarrhea, Denies nausea, Denies vomiting Genitourinary: Denies dysuria, Denies hematuria, Denies urgency, Denies urinary frequency Musculoskeletal: Denies frequent falls, Denies gait dysfunction, Denies muscle weakness, Denies myalgias Integumentary: Denies pruritus, Denies rash, Denies wounds Neurological: Denies aphasia, Denies change in mentation, Denies change in speech, Denies numbness, Denies seizures, Denies vertigo, Denies weakness Objective - Vital Signs Vital signs: Vital Signs Temp 98.6 F 06/05/18 06:33 Pulse 76 06/05/18 07:54 Resp 18 06/05/18 06:33 BP 149/76 06/05/18 06:33 Pulse Ox 94 L 06/05/18 06:33 Intake & Output 06/04/18 06/05/18 06/05/18 18:59 06:59 18:59 Intake Total 490 900 Balance 490 900 Weight 89.811 kg Intake: IV 150 Levofloxacin 750Mg-D5w 150 Pmx 750 mg In Dextrose/ Water 1 150ml.bag @ 100 mls/hr IVPB ONCE STA Rx#: [id number] Amount of Fluid Infused ( 100 ml) Oral 240 900 Other: Voiding Method Toilet Toilet Toilet # Voids 1 - Exam Gen: This is a 68-year-old female. She is resting in bed appears to be comfortable at rest. HEENT: Head is atraumatic, normocephalic. Pupils equal, round. Sclerae is anicteric. NECK: Supple. No JVD. No lymphadenopathy. No thyromegaly. LUNGS: Scattered Expiratory wheeze and rhonchi, prolonged expiration. No intercostal retractions. HEART: Regular rate and rhythm. No murmur. ABDOMEN: Soft. Bowel sounds are present. No masses. No tenderness. EXTREMITIES: No pedal edema. No calf tenderness. Small abrasion to the left great toe. NEUROLOGICAL: Patient is awake, alert and oriented x3. Cranial nerves 2 through 12 are grossly intact. - Labs CBC & Chem 7: 06/04/18 07:40 06/04/18 07:40 Labs: Abnormal Lab Results - Last 24 Hours (Table) 06/04/18 06/04/18 06/04/18 Range/Units 12:25 17:21 20:37 POC Glucose (mg/dL) 223 H 274 H 245 H (75-99) mg/dL 06/05/18 Range/Units 06:54 POC Glucose (mg/dL) 249 H (75-99) mg/dL Microbiology - Last 24 Hours (Table) 06/04/18 07:40 Blood Culture - Preliminary Blood No Growth after 24 hours 06/04/18 20:20 Gram Stain - Preliminary Sputum Sputum Culture - Preliminary Assessment and Plan Plan: 1. Reactive airway disease with probable underlying asthma not previously diagnosed. Continue DuoNeb treatments 4 times daily and every 4 hours as needed, Pulmicort 0.5 mg twice daily added. Continue Levaquin 500 mg daily, Solu-Medrol decreased to 40 mg every 8 hours. Continue Singulair 10 mg at bedtime, Tessalon Perles 200 mg 3 times daily as needed, Mucinex twice daily as needed. I medicine on consult. 2. Seasonal ALLERGIES. Continue Singulair 10 mg at bedtime, Claritin 10 mg daily. 3. Headache secondary to cough. Continue Toradol 15 mg every 6 hours as needed. 4. Diabetes mellitus type 2. Continue metformin 250 mg twice daily and NovoLog scale. 5. Hypothyroidism. Continue levothyroxine 50 g daily. 6. Hypertension. Continue Norvasc 25 mg twice daily, losartan 50 mg daily. 7. Hyperlipidemia. Continue Pravachol 20 mg at bedtime. 8. Recurrent depression and generalized anxiety disorder. Continue Zoloft 150 mg daily, Xanax as needed. 9. Fibromyalgia. Continue Lyrica 100 mg twice daily. 10. DVT prophylaxis. Lovenox. 11. GI prophylaxis. Pepcid. Discharge plan: Discharge home most likely on Friday Impression and plan of care have been directed as dictated by the signing physician. Jacinta Hernandez nurse practitioner acting as scribe for signing physician.
--- NOTE | 2018-06-05 13:44 | P.CNPUL ---
History of Present Illness Consult date: 06/05/18 Requesting physician: Tia Beckett Reason for consult: dyspnea, cough Chief complaint: Acute asthma exacerbation, with tracheobronchitis History of present illness: This is a 68-year-old white female patient with history of mild bronchial asthma, obstructive sleep apnea on CPAP therapy, diabetes, fibromyalgia, hypertension, who presented to the hospital on 06/04/2018 with complaints of cough, congestion, wheezing. Patient follows with Dr. Joseph and was seen for these symptoms, she was started on azithromycin and prednisone. She completed her azithromycin, however she failed to improve. She also complained of some facial pain and pressure from her sinus congestion. He did have fevers of 100F. No chest pain, no neck pain, no neck stiffness. He follows with Dr. Allan for her asthma, and her maintenance medications include Advair, Flonase, Singulair and Zyrtec. Chest x-ray was reviewed by Dr. Malave, and showed prominence of the right suprahilar region, and some density at the right base possibly related to early pneumonia. Flu screen was negative, white blood cell count is 9.5, hemoglobin is 12.7, correlation profile was within normal limits, electrolytes and renal profile were unremarkable, plasma lactic acid was 1.2, troponin is negative, proBNP was within normal limit is 63. Patient is a lifetime nonsmoker. Patient has been is utilizing her CPAP machine at home, however she thinks her pressures may be too high for her, during our evaluation patient's nob is broken off CPAP machine, making it difficult to adjust settings. It is requesting a new mask, and in addition she may need to have a new CPAP unit. Review of Systems All systems: negative Constitutional: Denies chills, Denies fever Eyes: denies blurred vision, denies pain Ears, nose, mouth and throat: Denies headache, Denies sore throat Cardiovascular: Denies chest pain, Denies shortness of breath Respiratory: Reports congestion, Reports cough with sputum, Reports dyspnea, Reports respiratory infections, Denies cough Gastrointestinal: Denies abdominal pain, Denies diarrhea, Denies nausea, Denies vomiting Genitourinary: Denies dysuria, Denies hematuria Musculoskeletal: Denies myalgias Integumentary: Denies pruritus, Denies rash Neurological: Denies numbness, Denies weakness Psychiatric: Denies anxiety, Denies depression Endocrine: Denies fatigue, Denies weight change Past Medical History Past Medical History: Asthma, Diabetes Mellitus, Fibromyalgia, GERD/Reflux, GI Bleed, Hyperlipidemia, Hypertension, Pneumonia, Sleep Apnea/CPAP/BIPAP Additional Past Medical History / Comment(s): Acute respiratory failure when she had bilateral pneumonia, chronic bronchitis, seasonal allergies, sinus problems, JUSTIN with CPap use, "Pre" diabetic, neuropathy R foot, heart murmur, MVR, past kidney stones with surgery, lower GI bleed, benign colon polyps, L knee bursitis, RLS, anemia, past foot fracture and bilateral wrist fractures, chronic fatigue, hypothyroid, UTIs. History of Any Multi-Drug Resistant Organisms: None Reported Past Surgical History: Heart Catheterization, Hysterectomy, Joint Replacement, Orthopedic Surgery, Tonsillectomy Additional Past Surgical History / Comment(s): Total R knee arthroplasty, laser surgery for kidney stones, L above eye cyst removed and cyst removed from back of head, R wrist fracture with surgery, colonoscopy/polypectomy, precancerous skin lesions removed, R foot bunionectomy. Past Anesthesia/Blood Transfusion Reactions: No Reported Reaction Smoking Status: Never smoker Additional Past Alcohol Use History / Comment(s): The patient is a lifelong nonsmoker, no marijuana or illicit drug use, alcohol use is rare. Patient does have a CPAP and nebulizer. No home oxygen. - Past Family History Mother Family Medical History: CVA/TIA Additional Family Medical History / Comment(s): DUE TO STROKE AT THE AGE OF 86YRS. Brother(s) Family Medical History: Myocardial Infarction (NV) Additional Family Medical History / Comment(s): ONE BROTHER OF A NV IN HIS EARLY 60S. OTHER BROTHER: "HEART PROBLEMS" Father Family Medical History: CVA/TIA Additional Family Medical History / Comment(s): FROM STROKE at 75 yrs. Daughter(s) Additional Family Medical History / Comment(s): The patient has 3 daughters. One is being evaluated for cancer, one has history of rheumatoid arthritis and one with no major medical problems. Patient does not have any sisters. Medications and Allergies Home Medications Medication Instructions Recorded Confirmed Type Cetirizine HCl [Zyrtec] 10 mg PO QAM 03/12/16 06/04/18 History Ibuprofen [Motrin] 800 mg PO Q8H PRN 03/12/16 06/04/18 History Levothyroxine Sodium [Synthroid] 50 mcg PO QAM 03/12/16 06/04/18 History Losartan [Cozaar] 50 mg PO DAILY 03/12/16 06/04/18 History Montelukast [Singulair] 10 mg PO HS 03/12/16 06/04/18 History Sertraline [Zoloft] 150 mg PO QAM 03/12/16 06/04/18 History guaiFENesin [Mucinex] 600 mg PO BID PRN 03/12/16 06/04/18 History metFORMIN HCL ER [Glucophage Xr] 500 mg PO BID 03/12/16 06/04/18 History ALPRAZolam [Xanax] 0.5 mg PO DAILY PRN 06/04/18 06/04/18 History Acyclovir 1 applic TOPICAL DAILY PRN 06/04/18 06/04/18 History Aspirin EC [Ecotrin Low Dose] 81 mg PO HS 06/04/18 06/04/18 History Benzonatate [Tessalon Perles] 200 mg PO TID PRN 06/04/18 06/04/18 History Fluticasone Nasal [place] [Flonase 1 spray EA NOSTRIL HS 06/04/18 06/04/18 History Nasal [place]] Fluticasone/Salmeterol [Advair 1 puff INHALATION RT-BID PRN 06/04/18 06/04/18 History 250-50 Diskus] Focus Vitamin 1 tab PO BID@1200,2100 06/04/18 06/04/18 History Pravastatin Sodium [Pravachol] 20 mg PO HS 06/04/18 06/04/18 History Pregabalin [Lyrica] 100 mg PO BID 06/04/18 06/04/18 History amLODIPine [Norvasc] 2.5 mg PO BID 06/04/18 06/04/18 History Allergies Allergy/AdvReac Type Severity Reaction Status Date / Time acetaminophen [From Lortab] Allergy Hallucinati Verified 06/04/18 07:55 ons cephalexin monohydrate Allergy Itching Verified 06/04/18 07:55 [From Keflex] codeine Allergy Hallucinati Verified 06/04/18 07:55 ons hydrocodone bitartrate Allergy Hallucinati Verified 06/04/18 07:55 [From Lortab] ons latex Allergy Rash/Hives Verified 06/04/18 07:55 Physical Exam Vitals: Vital Signs Temp Pulse Pulse Resp BP Pulse Ox 06/05/18 12:25 98.8 F 100 18 139/68 94 L 06/05/18 11:59 84 06/05/18 11:46 80 06/05/18 07:54 76 06/05/18 07:39 76 06/05/18 06:33 98.6 F 81 18 149/76 94 L 06/04/18 22:39 98.2 F 97 17 152/78 90 L 06/04/18 20:32 85 06/04/18 20:13 84 93 L 06/04/18 17:30 80 18 06/04/18 16:01 80 06/04/18 15:46 80 06/04/18 14:18 98.8 F 82 20 161/77 92 L Intake and Output 06/04/18 06/05/18 06/05/18 22:59 06:59 14:59 Intake Total 500 400 Balance 500 400 Intake: Oral 500 400 Other: Voiding Method Toilet Toilet # Voids 2 1 GENERAL EXAM: Alert, pleasant, overweight, 68-year-old white female comfortable in no apparent distress. HEAD: Normocephalic/atraumatic. EYES: Normal reaction of pupils, equal size. Conjunctiva pink, sclera white. NOSE: Clear with pink turbinates. THROAT: No erythema or exudates. NECK: No masses, no JVD, no thyroid enlargement, no adenopathy. CHEST: No chest wall deformity. Symmetrical expansion. LUNGS: Equal air entry with diffuse rhonchi and wheezes CVS: Regular rate and rhythm, normal S1 and S2, no gallops, no murmurs, no rubs ABDOMEN: Soft, nontender. No hepatosplenomegaly, normal bowel sounds, no guarding or rigidity. EXTREMITIES: No clubbing, no edema, no cyanosis, 2+ pulses and upper and lower extremities. MUSCULOSKELETAL: Muscle strength and tone normal. SPINE: No scoliosis or deformity SKIN: No rashes CENTRAL NERVOUS SYSTEM: Alert and oriented -3. No focal deficits, tone is normal in all 4 extremities. PSYCHIATRIC: Alert and oriented -3. Appropriate affect. Intact judgment and insight. Results - Laboratory Findings CBC and BMP: 06/04/18 07:40 06/04/18 07:40 PT/INR, D-dimer PT 9.5 sec (9.0-12.0) 06/04/18 07:40 INR 0.9 (<1.2) 06/04/18 07:40 Abnormal lab findings: Abnormal Labs 06/04/18 06/04/18 06/04/18 07:40 07:40 12:25 APTT 20.9 L Chloride 109 H Glucose 147 H POC Glucose (mg/dL) 223 H 06/04/18 06/04/18 06/05/18 17:21 20:37 06:54 APTT Chloride Glucose POC Glucose (mg/dL) 274 H 245 H 249 H 06/05/18 12:12 APTT Chloride Glucose POC Glucose (mg/dL) 234 H - Diagnostic Findings Chest x-ray: report reviewed, image reviewed Additional studies: EKG reviewed Assessment and Plan Plan: Assessment: #1. Acute hypoxemic respiratory failure secondary to acute exacerbation of bronchial asthma, with tracheobronchitis, and there is a possibility of early pneumonia in the right base. Patient was treated outpatient basis, with failure of treatment #2. History of mild intermittent bronchial asthma #3. Obstructive sleep apnea, on CPAP therapy #4. Fibromyalgia syndrome #5. Type 2 diabetes mellitus #6. Hypertension Plan: Continue with current antibiotics, IV steroids, nebulized bronchodilators, Singulair. Blood and sputum cultures have been sent, results are pending. No fever or chills, chest x-ray has been reviewed with Dr. Malave, and there is a possibility of early developing pneumonia in the right base. Patient is alert and oriented 3, no altered mentation, renal profile is within normal limits, no significant leukocytosis or electrolyte abnormality. Influenza was nondetected. I performed a history & physical examination of the patient and discussed their management with my nurse practitioner, Lesa Barcenas. I reviewed the nurse practitioner's note and agree with the documented findings and plan of care. Lung sounds are positive for diffuse wheezes throughout the lung becerril. The findings and the impression was discussed with the patient. I attest to the documentation by the nurse practitioner. Time with Patient: Greater than 30
[2018-06-05] MEDS: methylPREDNISolone SOD SUCCI 40 MG/ML 1 ML VIAL IV SCH (16:56)
[2018-06-05 17:23] LABS: Glucose,Whole Blood 207 mg/dL (75-99)
[2018-06-05 20:10] LABS: Glucose,Whole Blood 184 mg/dL (75-99)
[2018-06-05] MEDS: MELATONIN 3 MG TABLET PO SCH (22:03)
[2018-06-05] MEDS: MONTELUKAST 10 MG TAB PO SCH (22:04)
[2018-06-05] MEDS: PRAVASTATIN SODIUM 20 MG TAB PO SCH (22:04)
[2018-06-05] MEDS: MAGNESIUM OXIDE 400 MG TAB PO SCH (22:04)
[2018-06-05] MEDS: ASPIRIN 81 MG PO SCH (22:04)
[2018-06-05] MEDS: FLUTICASONE 50MCG/SPRAY NASAL 16GM EA NOSTRIL SCH (22:39)
[2018-06-06] MEDS: methylPREDNISolone SOD SUCCI 40 MG/ML 1 ML VIAL IV SCH ×4 (00:17→23:14)
[2018-06-06] MEDS: LEVOTHYROXINE 50 MCG TAB PO SCH (06:14)
[2018-06-06 07:00] LABS: Glucose,Whole Blood 243 mg/dL (75-99)
[2018-06-06] MEDS: BUDESONIDE 0.5 MG/2 ML NEBU INHALATION SCH ×2 (07:48→20:01)
[2018-06-06] MEDS: IPRATROPIUM-ALBUTEROL 3 ML NEB INHALATION SCH ×4 (07:48→20:01)
[2018-06-06] MEDS: MAGNESIUM OXIDE 400 MG TAB PO SCH ×2 (08:15→21:15)
[2018-06-06] MEDS: KETOROLAC 30 MG/ML 1 ML VIAL IVP PRN ×3 (08:15→21:16)
[2018-06-06] MEDS: SERTRALINE 100 MG TAB PO SCH (08:15)
[2018-06-06] MEDS: metFORMIN 500 MG TAB PO SCH ×2 (08:16→17:21)
[2018-06-06] MEDS: PREGABALIN 100 MG CAP PO SCH ×2 (08:16→21:15)
[2018-06-06] MEDS: amLODIPine 2.5 MG TAB PO SCH ×2 (08:16→21:15)
[2018-06-06] MEDS: LOSARTAN 50 MG TAB PO SCH (08:16)
[2018-06-06] MEDS: LORATADINE 10 MG TAB PO SCH (08:16)
[2018-06-06] MEDS: FAMOTIDINE 20 MG TAB PO SCH (08:16)
[2018-06-06] MEDS: LEVOFLOXACIN 500 MG TAB PO SCH (08:16)
[2018-06-06] MEDS: INSULIN ASPART (NovoLOG) 100 UNIT/ML VIAL SQ SCH ×4 (08:17→21:16)
[2018-06-06] MEDS: ENOXAPARIN 40 MG/0.4 ML SYRINGE SQ SCH (08:17)
[2018-06-06] MEDS: INSULIN DETEMIR (LEVEMIR) 100 UNIT/ML SYR SQ SCH (08:26)
[2018-06-06 11:39] LABS: Glucose,Whole Blood 236 mg/dL (75-99)
--- NOTE | 2018-06-06 12:24 | P.PN ---
Subjective Progress Note Date: 06/06/18 This is a 68-year-old female patient of Dr. Meier with past medical history of asthma, diabetes mellitus type 2, fibromyalgia, gastroesophageal reflux disease, hypertension, hyperlipidemia, obstructive sleep apnea via on CPAP, seasonal ALLERGIES. Patient also follows with Dr. Marin and sees him twice a year. She has a history of pneumonia in 2012 and his nebulizer at home but does not use it. She does not have oxygen. Patient states that she has been short of breath since June 23 first. She thought she had cold. She went to see Dr. Joseph and she was having wheezing so he put her on Medrol Dosepak and azithromycin. She states she was functioning okay but was continuing to feel worse. Last night she had a temperature 100.0. She has a cough with green and yellow sputum production. She came into [facility] emergency center for evaluation. She was afebrile, blood pressure 163/80, pulse ox 93% on room air, heart rate 90. CBC is within normal limits, electrolytes essentially normal, creatinine 0.53, blood sugar 147, liver function tests normal. Influenza testing negative. Troponin negative. Patient is started on Levaquin, nebulizer treatments and admitted to the [facility] floor. Patient also complains of a headache across her forehead and neck area when she coughs. 06/05: Patient has been afebrile, heart rate 76, blood pressure 149/76, pulse ox 94% on 3 L nasal cannula. Blood sugars running in the 200s. Levemir 10 units daily will be added. She is continued on NovoLog scale. Hemoglobin A1c is pending. Sputum culture in progress. Blood cultures showing no growth after 24 hours. Magnesium added. We will decrease Solu-Medrol to 40 mg every 8 hours. Patient is followed by Dr. Malave. Possible discharge tomorrow 06/06: Patient continues to have some shortness of breath especially with activity and getting to the bathroom. She has a cough. She states she continues to have decreased energy but is feeling better since admission. We will plan to continue current medications which include Cymetra 40 every 8 hours and recheck chest x-ray in the morning. Patient remains afebrile, heart rate in the 80s, blood pressure 125/66, pulse ox is documented as 96% on 3 L the patient relates that she dropped down to 89% but this is not documented in her chart. We will ask for a home oxygen assessment to be done. Plan to monitor patient overnight and possible discharge by tomorrow. Review of Systems Constitutional: Reports fatigue, Reports fever, Reports malaise, Reports poor appetite, Denies chills Eyes: denies blurred vision, denies pain Ears, nose, mouth and throat: Reports headache, Denies dysphagia, Denies sore throat, Denies vertigo Cardiovascular: Denies chest pain, Denies decreased exercise tolerance, Denies dyspnea on exertion, Denies leg edema, Denies shortness of breath, Denies syncope Respiratory: Reports cough, Reports cough with sputum, Reports dyspnea, reports dyspnea with exertion, Reports wheezing, Denies excessive sputum, Denies hemoptysis, Denies home oxygen Gastrointestinal: Denies abdominal pain, Denies diarrhea, Denies nausea, Denies vomiting Genitourinary: Denies dysuria, Denies hematuria, Denies urgency, Denies urinary frequency Musculoskeletal: Denies frequent falls, Denies gait dysfunction, Denies muscle weakness, Denies myalgias Integumentary: Denies pruritus, Denies rash, Denies wounds Neurological: Denies aphasia, Denies change in mentation, Denies change in speech, Denies numbness, Denies seizures, Denies vertigo, Denies weakness Objective - Vital Signs Vital signs: Vital Signs Temp 97.9 F 06/06/18 05:47 Pulse 84 06/06/18 11:37 Resp 18 06/06/18 05:47 BP 125/66 06/06/18 05:47 Pulse Ox 96 06/06/18 05:47 Intake & Output 06/05/18 06/06/18 06/06/18 18:59 06:59 18:59 Intake Total 240 Balance 240 Intake: Oral 240 Other: Voiding Method Toilet # Voids 2 2 - Exam Gen: This is a 68-year-old female. She is resting in bed appears to be comfortable at rest. HEENT: Head is atraumatic, normocephalic. Pupils equal, round. Sclerae is anicteric. NECK: Supple. No JVD. No lymphadenopathy. No thyromegaly. LUNGS: Clear to auscultation. No intercostal retractions. HEART: Regular rate and rhythm. No murmur. ABDOMEN: Soft. Bowel sounds are present. No masses. No tenderness. EXTREMITIES: No pedal edema. No calf tenderness. Small abrasion to the left great toe. NEUROLOGICAL: Patient is awake, alert and oriented x3. Cranial nerves 2 through 12 are grossly intact. - Labs CBC & Chem 7: 06/04/18 07:40 06/04/18 07:40 Labs: Abnormal Lab Results - Last 24 Hours (Table) 06/04/18 06/05/18 06/05/18 Range/Units 07:40 12:12 17:15 POC Glucose (mg/dL) 234 H 207 H (75-99) mg/dL Hemoglobin A1c 7.0 H (4.0-6.0) % 06/05/18 06/06/18 06/06/18 Range/Units 20:08 06:57 11:38 POC Glucose (mg/dL) 184 H 243 H 236 H (75-99) mg/dL Hemoglobin A1c (4.0-6.0) % Microbiology - Last 24 Hours (Table) 06/04/18 07:40 Blood Culture - Preliminary Blood No Growth after 48 hours Assessment and Plan Plan: 1. Reactive airway disease with probable underlying asthma not previously diagnosed. Continue DuoNeb treatments 4 times daily and every 4 hours as needed, Pulmicort 0.5 mg twice daily added. Continue Levaquin 500 mg daily, continue Solu-Medrol decreased to 40 mg every 8 hours. Continue Singulair 10 mg at bedtime, Tessalon Perles 200 mg 3 times daily as needed, Mucinex twice daily as needed. Pulmonary medicine consult appreciated. 2. Seasonal ALLERGIES. Continue Singulair 10 mg at bedtime, Claritin 10 mg daily. 3. Headache secondary to cough. Continue Toradol 15 mg every 6 hours as needed. 4. Diabetes mellitus type 2. Continue metformin 250 mg twice daily and NovoLog scale. 5. Hypothyroidism. Continue levothyroxine 50 g daily. 6. Hypertension. Continue Norvasc 25 mg twice daily, losartan 50 mg daily. 7. Hyperlipidemia. Continue Pravachol 20 mg at bedtime. 8. Recurrent depression and generalized anxiety disorder. Continue Zoloft 150 mg daily, Xanax as needed. 9. Fibromyalgia. Continue Lyrica 100 mg twice daily. 10. DVT prophylaxis. Lovenox. 11. GI prophylaxis. Pepcid. Discharge plan: Discharge home most likely on Impression and plan of care have been directed as dictated by the signing physician. Jacinta Hernandez nurse practitioner acting as scribe for signing physician.
--- NOTE | 2018-06-06 15:15 | P.PN ---
Subjective Progress Note Date: 06/06/18 Principal diagnosis: Acute exacerbation of asthma, complicated by acute tracheobronchitis. This is a 68-year-old white female patient with history of mild bronchial asthma, obstructive sleep apnea on CPAP therapy, diabetes, fibromyalgia, hypertension, who presented to the hospital on 06/04/2018 with complaints of cough, congestion, wheezing. Patient follows with Dr. Joseph and was seen for these symptoms, she was started on azithromycin and prednisone. She completed her azithromycin, however she failed to improve. She also complained of some facial pain and pressure from her sinus congestion. He did have fevers of 100F. No chest pain, no neck pain, no neck stiffness. He follows with Dr. Allan for her asthma, and her maintenance medications include Advair, Flonase, Singulair and Zyrtec. Chest x-ray was reviewed by Dr. Malave, and showed prominence of the right suprahilar region, and some density at the right base possibly related to early pneumonia. Flu screen was negative, white blood cell count is 9.5, hemoglobin is 12.7, correlation profile was within normal limits, electrolytes and renal profile were unremarkable, plasma lactic acid was 1.2, troponin is negative, proBNP was within normal limit is 63. Patient is a lifetime nonsmoker. Patient has been is utilizing her CPAP machine at home, however she thinks her pressures may be too high for her, during our evaluation patient's nob is broken off CPAP machine, making it difficult to adjust se ttings. It is requesting a new mask, and in addition she may need to have a new CPAP unit. The patient is seen today 06/06/2018 in follow-up on the regular medical floor. She is awake and alert in no acute distress. Maintaining good O2 saturations in the 90s on room air. She's afebrile. Hemodynamically stable. Blood and sputum cultures reveal no growth. She is continued on DuoNeb inhalations, Pulmicort inhalations, Singulair, IV Solu-Medrol, antibiotics in the form of Levaquin. Objective - Vital Signs Vital signs: Vital Signs Temp 98.3 F 06/06/18 14:57 Pulse 90 06/06/18 14:57 Resp 18 06/06/18 14:57 BP 122/71 06/06/18 14:57 Pulse Ox 92 L 06/06/18 14:57 Intake & Output 06/05/18 06/06/18 06/06/18 18:59 06:59 18:59 Intake Total 240 Balance 240 Intake: Oral 240 Other: Voiding Method Toilet # Voids 2 2 1 - Exam GENERAL EXAM: Alert, pleasant, overweight, 68-year-old white female comfortable in no apparent distress. On room air. HEAD: Normocephalic/atraumatic. EYES: Normal reaction of pupils, equal size. Conjunctiva pink, sclera white. NOSE: Clear with pink turbinates. THROAT: No erythema or exudates. NECK: No masses, no JVD, no thyroid enlargement, no adenopathy. CHEST: No chest wall deformity. Symmetrical expansion. LUNGS: Equal air entry with diffuse rhonchi and wheezes CVS: Regular rate and rhythm, normal S1 and S2, no gallops, no murmurs, no rubs ABDOMEN: Soft, nontender. No hepatosplenomegaly, normal bowel sounds, no guarding or rigidity. EXTREMITIES: No clubbing, no edema, no cyanosis, 2+ pulses and upper and lower extremities. MUSCULOSKELETAL: Muscle strength and tone normal. SPINE: No scoliosis or deformity SKIN: No rashes CENTRAL NERVOUS SYSTEM: No focal deficits, tone is normal in all 4 extremities. PSYCHIATRIC: Alert and oriented -3. Appropriate affect. Intact judgment and insight. - Labs CBC & Chem 7: 06/04/18 07:40 06/04/18 07:40 Labs: Abnormal Lab Results - Last 24 Hours (Table) 06/04/18 06/05/18 06/05/18 Range/Units 07:40 17:15 20:08 POC Glucose (mg/dL) 207 H 184 H (75-99) mg/dL Hemoglobin A1c 7.0 H (4.0-6.0) % 06/06/18 06/06/18 Range/Units 06:57 11:38 POC Glucose (mg/dL) 243 H 236 H (75-99) mg/dL Hemoglobin A1c (4.0-6.0) % Microbiology - Last 24 Hours (Table) 06/04/18 07:40 Blood Culture - Preliminary Blood No Growth after 48 hours Assessment and Plan Assessment: Assessment: #1. Acute hypoxemic respiratory failure secondary to acute exacerbation of bronchial asthma, with tracheobronchitis, and there is a possibility of early pneumonia in the right base. Patient was treated outpatient basis, with failure of treatment #2. History of mild intermittent bronchial asthma #3. Obstructive sleep apnea, on CPAP therapy #4. Fibromyalgia syndrome #5. Type 2 diabetes mellitus #6. Hypertension Plan: Patient is seen and evaluated by Dr. Malave. She is currently stable from the pulmonary standpoint. Continue with her current treatment. She could be disc harged home on a prednisone burst and taper. Complete her course of empiric antibiotics. Follow-up in our office in 1-2 weeks' time. She is encouraged to call sooner with any recurrence of symptoms or other questions or concerns. I, the cosigning physician, performed a history & physical examination of the patient. Lungs sounds faint end expiratory wheeze. Maintaining good O2 saturations in the 90s on room air. I discussed the assessment and plan of care with my nurse practitioner, Zoe Worley. I attest to the above note as dictated by her.
[2018-06-06 16:58] LABS: Glucose,Whole Blood 163 mg/dL (75-99)
[2018-06-06] MEDS: FLUTICASONE 50MCG/SPRAY NASAL 16GM EA NOSTRIL SCH (21:02)
[2018-06-06 21:13] LABS: Glucose,Whole Blood 254 mg/dL (75-99)
[2018-06-06] MEDS: MELATONIN 3 MG TABLET PO SCH (21:15)
[2018-06-06] MEDS: ASPIRIN 81 MG PO SCH (21:15)
[2018-06-06] MEDS: PRAVASTATIN SODIUM 20 MG TAB PO SCH (21:15)
[2018-06-06] MEDS: MONTELUKAST 10 MG TAB PO SCH (21:15)
[2018-06-07] MEDS: LEVOTHYROXINE 50 MCG TAB PO SCH (06:04)
[2018-06-07 07:09] LABS: Glucose,Whole Blood 233 mg/dL (75-99)
[2018-06-07] MEDS: BUDESONIDE 0.5 MG/2 ML NEBU INHALATION SCH ×2 (07:29→20:20)
[2018-06-07] MEDS: IPRATROPIUM-ALBUTEROL 3 ML NEB INHALATION SCH ×4 (07:29→20:20)
[2018-06-07] MEDS: LEVOFLOXACIN 500 MG TAB PO SCH (08:14)
[2018-06-07] MEDS: PREGABALIN 100 MG CAP PO SCH ×2 (08:14→20:44)
[2018-06-07] MEDS: methylPREDNISolone SOD SUCCI 40 MG/ML 1 ML VIAL IV SCH ×3 (08:14→23:54)
[2018-06-07] MEDS: LOSARTAN 50 MG TAB PO SCH (08:14)
[2018-06-07] MEDS: SERTRALINE 100 MG TAB PO SCH (08:14)
[2018-06-07] MEDS: ENOXAPARIN 40 MG/0.4 ML SYRINGE SQ SCH (08:14)
[2018-06-07] MEDS: amLODIPine 2.5 MG TAB PO SCH ×2 (08:15→20:42)
[2018-06-07] MEDS: INSULIN ASPART (NovoLOG) 100 UNIT/ML VIAL SQ SCH ×4 (08:15→21:05)
[2018-06-07] MEDS: MAGNESIUM OXIDE 400 MG TAB PO SCH ×2 (08:15→20:42)
[2018-06-07] MEDS: FAMOTIDINE 20 MG TAB PO SCH (08:15)
[2018-06-07] MEDS: LORATADINE 10 MG TAB PO SCH (08:15)
[2018-06-07] MEDS: metFORMIN 500 MG TAB PO SCH ×2 (08:15→17:22)
[2018-06-07] MEDS: FLUTICASONE 50MCG/SPRAY NASAL 16GM EA NOSTRIL SCH (08:22)
[2018-06-07] MEDS: guaiFENesin 600 MG TABLET.ER PO PRN (08:29)
[2018-06-07] MEDS: KETOROLAC 30 MG/ML 1 ML VIAL IVP PRN ×2 (08:29→14:17)
[2018-06-07] MEDS: INSULIN DETEMIR (LEVEMIR) 100 UNIT/ML SYR SQ SCH (08:34)
--- NOTE | 2018-06-07 09:36 | XR ---
EXAMINATION TYPE: XR chest 2V DATE OF EXAM: 06/07/2018 HISTORY: asthma, pneumonia, hypoxia . REFERENCE: Previous study dated 06/04/2018. FINDINGS: The lungs are clear. Pleural space are clear. The heart is not enlarged. IMPRESSION: NO ACTIVE INTRATHORACIC DISEASE.
--- NOTE | 2018-06-07 11:34 | P.PN ---
Subjective Progress Note Date: 06/07/18 This is a 68-year-old female patient of Dr. Meier with past medical history of asthma, diabetes mellitus type 2, fibromyalgia, gastroesophageal reflux disease, hypertension, hyperlipidemia, obstructive sleep apnea via on CPAP, seasonal ALLERGIES. Patient also follows with Dr. Marin and sees him twice a year. She has a history of pneumonia in 2012 and his nebulizer at home but does not use it. She does not have oxygen. Patient states that she has been short of breath since June 23 first. She thought she had cold. She went to see Dr. Joseph and she was having wheezing so he put her on Medrol Dosepak and azithromycin. She states she was functioning okay but was continuing to feel worse. Last night she had a temperature 100.0. She has a cough with green and yellow sputum production. She came into [facility] emergency center for evaluation. She was afebrile, blood pressure 163/80, pulse ox 93% on room air, heart rate 90. CBC is within normal limits, electrolytes essentially normal, creatinine 0.53, blood sugar 147, liver function tests normal. Influenza testing negative. Troponin negative. Patient is started on Levaquin, nebulizer treatments and admitted to the [facility] floor. Patient also complains of a headache across her forehead and neck area when she coughs. 06/05: Patient has been afebrile, heart rate 76, blood pressure 149/76, pulse ox 94% on 3 L nasal cannula. Blood sugars running in the 200s. Levemir 10 units daily will be added. She is continued on NovoLog scale. Hemoglobin A1c is pending. Sputum culture in progress. Blood cultures showing no growth after 24 hours. Magnesium added. We will decrease Solu-Medrol to 40 mg every 8 hours. Patient is followed by Dr. Malave. Possible discharge tomorrow 06/06: Patient continues to have some shortness of breath especially with activity and getting to the bathroom. She has a cough. She states she continues to have decreased energy but is feeling better since admission. We will plan to continue current medications which include Cymetra 40 every 8 hours and recheck chest x-ray in the morning. Patient remains afebrile, heart rate in the 80s, blood pressure 125/66, pulse ox is documented as 96% on 3 L the patient relates that she dropped down to 89% but this is not documented in her chart. We will ask for a home oxygen assessment to be done. Plan to monitor patient overnight and possible discharge by tomorrow. 06/07: Patient states that she is only 50% better since she came in. Discharge will be held until tomorrow. Dr. Malave is in agreement. Patient will be continued on IV Solu-Medrol. Nursing to check ambulating pulse ox of for home O2 need. Patient has been using CPAP and Dr. Malave has advised her to get this upgraded. Patient will be monitored overnight and possible discharge for tomorrow. Review of Systems Constitutional: Reports fatigue, Reports fever, Reports malaise, Reports poor appetite, Denies chills Eyes: denies blurred vision, denies pain Ears, nose, mouth and throat: Reports headache, Denies dysphagia, Denies sore throat, Denies vertigo Cardiovascular: Denies chest pain, Denies decreased exercise tolerance, Denies dyspnea on exertion, Denies leg edema, Denies shortness of breath, Denies syncope Respiratory: Reports cough, Reports cough with sputum, Reports dyspnea, reports dyspnea with exertion, Reports wheezing, Denies excessive sputum, Denies hemoptysis, Denies home oxygen Gastrointestinal: Denies abdominal pain, Denies diarrhea, Denies nausea, Denies vomiting Genitourinary: Denies dysuria, Denies hematuria, Denies urgency, Denies urinary frequency Musculoskeletal: Denies frequent falls, Denies gait dysfunction, Denies muscle weakness, Denies myalgias Neurological: Denies aphasia, Denies change in mentation, Denies change in speech, Denies numbness, Denies seizures, Denies vertigo, Denies weakness Objective - Vital Signs Vital signs: Vital Signs Temp 96.8 F L 06/07/18 05:16 Pulse 78 06/07/18 07:40 Resp 18 06/07/18 05:16 BP 133/79 06/07/18 05:16 Pulse Ox 93 L 06/07/18 05:16 Intake & Output 06/06/18 06/07/18 06/07/18 18:59 06:59 18:59 Other: # Voids 1 3 - Exam Gen: This is a 68-year-old female. She is resting in bed appears to be comfortable at rest. HEENT: Head is atraumatic, normocephalic. Pupils equal, round. Sclerae is anicteric. NECK: Supple. No JVD. No lymphadenopathy. No thyromegaly. LUNGS: Few expiratory wheeze. No intercostal retractions. HEART: Regular rate and rhythm. No murmur. ABDOMEN: Soft. Bowel sounds are present. No masses. No tenderness. EXTREMITIES: No pedal edema. No calf tenderness. Small abrasion to the left great toe. NEUROLOGICAL: Patient is awake, alert and oriented x3. Cranial nerves 2 through 12 are grossly intact. - Labs CBC & Chem 7: 06/04/18 07:40 06/04/18 07:40 Labs: Abnormal Lab Results - Last 24 Hours (Table) 06/06/18 06/06/18 06/06/18 Range/Units 11:38 16:44 21:06 POC Glucose (mg/dL) 236 H 163 H 254 H (75-99) mg/dL 06/07/18 Range/Units 06:58 POC Glucose (mg/dL) 233 H (75-99) mg/dL Microbiology - Last 24 Hours (Table) 06/04/18 07:40 Blood Culture - Preliminary Blood No Growth after 72 hours 06/04/18 20:20 Gram Stain - Final Sputum Sputum Culture - Final Assessment and Plan Plan: 1. Reactive airway disease with probable underlying asthma not previously diagnosed. Continue DuoNeb treatments 4 times daily and every 4 hours as needed, Pulmicort 0.5 mg twice daily added. Continue Levaquin 500 mg daily, continue Solu-Medrol decreased to 40 mg every 8 hours. Continue Singulair 10 mg at bedtime, Tessalon Perles 200 mg 3 times daily as needed, Mucinex twice daily as needed. Pulmonary medicine consult appreciated. No change in medications today. 2. Seasonal ALLERGIES. Continue Singulair 10 mg at bedtime, Claritin 10 mg daily. 3. Headache secondary to cough. Continue Toradol 15 mg every 6 hours as needed. 4. Diabetes mellitus type 2. Continue metformin 250 mg twice daily and NovoLog scale. 5. Hypothyroidism. Continue levothyroxine 50 g daily. 6. Hypertension. Continue Norvasc 25 mg twice daily, losartan 50 mg daily. 7. Hyperlipidemia. Continue Pravachol 20 mg at bedtime. 8. Recurrent depression and generalized anxiety disorder. Continue Zoloft 150 mg daily, Xanax as needed. 9. Fibromyalgia. Continue Lyrica 100 mg twice daily. 10. DVT prophylaxis. Lovenox. 11. GI prophylaxis. Pepcid. Discharge plan: Discharge home most likely on Friday Impression and plan of care have been directed as dictated by the signing physician. Jacinta Hernandez nurse practitioner acting as scribe for signing physician.
[2018-06-07 11:57] LABS: Glucose,Whole Blood 170 mg/dL (75-99)
--- NOTE | 2018-06-07 15:03 | P.PN ---
Subjective Progress Note Date: 06/07/18 This is a 68-year-old white female patient with history of mild bronchial asthma, obstructive sleep apnea on CPAP therapy, diabetes, fibromyalgia, hypertension, who presented to the hospital on 06/04/2018 with complaints of cough, congestion, wheezing. Patient follows with Dr. Joseph and was seen for th ismael symptoms, she was started on azithromycin and prednisone. She completed her azithromycin, however she failed to improve. She also complained of some facial pain and pressure from her sinus congestion. He did have fevers of 100F. No chest pain, no neck pain, no neck stiffness. He follows with Dr. Allan for her asthma, and her maintenance medications include Advair, Flonase, Singulair and Zyrtec. Chest x-ray was reviewed by Dr. Malave, and showed prominence of the right suprahilar region, and some density at the right base possibly related to early pneumonia. Flu screen was negative, white blood cell count is 9.5, hemoglobin is 12.7, correlation profile was within normal limits, electrolytes and renal profile were unremarkable, plasma lactic acid was 1.2, troponin is negative, proBNP was within normal limit is 63. Patient is a lifetime nonsmoker. Patient has been is utilizing her CPAP machine at home, however she thinks her pressures may be too high for her, during our evaluation patient's nob is broken off CPAP machine, making it difficult to adjust settings. It is r equesting a new mask, and in addition she may need to have a new CPAP unit. The patient is seen today 06/06/2018 in follow-up on the regular medical floor. She is awake and alert in no acute distress. Maintaining good O2 saturations in the 90s on room air. She's afebrile. Hemodynamically stable. Blood and sputum cultures reveal no growth. She is continued on DuoNeb inhalations, Pulmicort in halations, Singulair, IV Solu-Medrol, antibiotics in the form of Levaquin. On 06/07/2018 the patient continues to improve. She states that she's 50% improved compared to her admission. She is using her CPAP unit overnight. She is on Pulmicort Respules and DuoNeb nebulized units [id number]. She is still on IV Solu Medrol patient is on Levaquin. Objective - Vital Signs Vital signs: Vital Signs Temp 98.6 F 06/07/18 14:10 Pulse 100 06/07/18 14:10 Resp 20 06/07/18 14:10 BP 171/74 06/07/18 14:10 Pulse Ox 94 L 06/07/18 14:10 Intake & Output 06/06/18 06/07/18 06/07/18 18:59 06:59 18:59 Other: # Voids 1 3 1 - Exam GENERAL EXAM: Alert, pleasant, overweight, 68-year-old white female comfortable in no apparent distress. On room air. HEAD: Normocephalic/atraumatic. EYES: Normal reaction of pupils, equal size. Conjunctiva pink, sclera white. NOSE: Clear with pink turbinates. THROAT: No erythema or exudates. NECK: No masses, no JVD, no thyroid enlargement, no adenopathy. CHEST: No chest wall deformity. Symmetrical expansion. LUNGS: Equal air entry with diffuse rhonchi and wheezes CVS: Regular rate and rhythm, normal S1 and S2, no gallops, no murmurs, no rubs ABDOMEN: Soft, nontender. No hepatosplenomegaly, normal bowel sounds, no guard ing or rigidity. EXTREMITIES: No clubbing, no edema, no cyanosis, 2+ pulses and upper and lower extremities. MUSCULOSKELETAL: Muscle strength and tone normal. SPINE: No scoliosis or deformity SKIN: No rashes CENTRAL NERVOUS SYSTEM: No focal deficits, tone is normal in all 4 extremities. PSYCHIATRIC: Alert and oriented -3. Appropriate affect. Intact judgment and insight. - Labs CBC & Chem 7: 06/04/18 07:40 06/04/18 07:40 Labs: Abnormal Lab Results - Last 24 Hours (Table) 06/06/18 06/06/18 06/07/18 Range/Units 16:44 21:06 06:58 POC Glucose (mg/dL) 163 H 254 H 233 H (75-99) mg/dL 06/07/18 Range/Units 11:49 POC Glucose (mg/dL) 170 H (75-99) mg/dL Microbiology - Last 24 Hours (Table) 06/04/18 07:40 Blood Culture - Preliminary Blood No Growth after 72 hours 06/04/18 20:20 Gram Stain - Final Sputum Sputum Culture - Final Assessment and Plan Plan: #1. Acute hypoxemic respiratory failure secondary to acute exacerbation of bronchial asthma, with tracheobronchitis, and there is a possibility of early pneumonia in the right base. Patient was treated outpatient basis, with failure of treatment, clinically improving #2. History of mild intermittent bronchial asthma #3. Obstructive sleep apnea, on CPAP therapy #4. Fibromyalgia syndrome #5. Type 2 diabetes mellitus #6. Hypertension Plan Continue same treatment. Clinically improved improved. Possible discharge within next 24-48 hours. Outpatient follow-up .
[2018-06-07 17:02] LABS: Glucose,Whole Blood 191 mg/dL (75-99)
[2018-06-07] MEDS: ASPIRIN 81 MG PO SCH (20:42)
[2018-06-07] MEDS: MELATONIN 3 MG TABLET PO SCH (20:43)
[2018-06-07] MEDS: PRAVASTATIN SODIUM 20 MG TAB PO SCH (20:44)
[2018-06-07] MEDS: MONTELUKAST 10 MG TAB PO SCH (20:44)
[2018-06-07 20:59] LABS: Glucose,Whole Blood 195 mg/dL (75-99)
[2018-06-08] MEDS: metFORMIN 500 MG TAB PO SCH (06:52)
[2018-06-08] MEDS: LEVOTHYROXINE 50 MCG TAB PO SCH (06:52)
[2018-06-08 06:57] LABS: Glucose,Whole Blood 209 mg/dL (75-99)
[2018-06-08] MEDS: INSULIN ASPART (NovoLOG) 100 UNIT/ML VIAL SQ SCH (07:00)
[2018-06-08 07:57] VITALS: BP 159/76; RESP 18; TEMP 97.9
[2018-06-08] MEDS: BUDESONIDE 0.5 MG/2 ML NEBU INHALATION SCH (08:54)
[2018-06-08] MEDS: IPRATROPIUM-ALBUTEROL 3 ML NEB INHALATION SCH ×2 (08:54→12:23)
[2018-06-08 09:09] VITALS: PULSE 88
[2018-06-08] MEDS: INSULIN DETEMIR (LEVEMIR) 100 UNIT/ML SYR SQ SCH (09:16)
[2018-06-08] MEDS: ENOXAPARIN 40 MG/0.4 ML SYRINGE SQ SCH (09:16)
[2018-06-08] MEDS: methylPREDNISolone SOD SUCCI 40 MG/ML 1 ML VIAL IV SCH (09:16)
[2018-06-08] MEDS: LEVOFLOXACIN 500 MG TAB PO SCH (09:24)
[2018-06-08] MEDS: amLODIPine 2.5 MG TAB PO SCH (09:24)
[2018-06-08] MEDS: LORATADINE 10 MG TAB PO SCH (09:24)
[2018-06-08] MEDS: PREGABALIN 100 MG CAP PO SCH (09:25)
[2018-06-08] MEDS: LOSARTAN 50 MG TAB PO SCH (09:25)
[2018-06-08] MEDS: MAGNESIUM OXIDE 400 MG TAB PO SCH (09:26)
[2018-06-08] MEDS: SERTRALINE 100 MG TAB PO SCH (09:26)
[2018-06-08] MEDS: FLUTICASONE 50MCG/SPRAY NASAL 16GM EA NOSTRIL SCH (09:28)
[2018-06-08] MEDS: guaiFENesin 600 MG TABLET.ER PO PRN (09:31)
--- NOTE | 2018-06-08 10:40 | P.DS ---
Providers Date of admission: 06/04/18 09:23 Expected date of discharge: 06/08/18 Attending physician: Tia Beckett Consults: 06/04/18 10:10 Consult Physician Routine Consulting Provider: Eileen Marin Consult Reason/Comments: known Do you want consulting provider notified?: Yes Primary care physician: Peter Meier [facility] Course: This is a 68-year-old female patient of Dr. Meier with past medical history of asthma, diabetes mellitus type 2, fibromyalgia, gastroesophageal reflux disease, hypertension, hyperlipidemia, obstructive sleep apnea via on CPAP, seasonal ALLERGIES. Patient also follows with Dr. Marin and sees him twice a year. She has a history of pneumonia in 2012 and his nebulizer at home but does not use it. She does not have oxygen. Patient states that she has been short of breath since June 23 first. She thought she had cold. She went to see Dr. Joseph and she was having wheezing so he put her on Medrol Dosepak and azithromycin. She states she was functioning okay but was continuing to feel worse. Last night she had a temperature 100.0. She has a cough with green and yellow sputum production. She came into [facility] emergency center for evaluation. She was afebrile, blood pressure 163/80, pulse ox 93% on room air, heart rate 90. CBC is within normal limits, electrolytes essentially normal, creatinine 0.53, blood sugar 147, liver function tests normal. Influenza testing negative. Troponin negative. Patient is started on Levaquin, nebulizer treatments and [facility] Patient also complains of a headache across her forehead and neck area when she coughs. 06/05: Patient has been afebrile, heart rate 76, blood pressure 149/76, pulse ox 94% on 3 L nasal cannula. Blood sugars running in the 200s. Levemir 10 units daily will be added. She is continued on NovoLog scale. Hemoglobin A1c is pending. Sputum culture in progress. Blood cultures showing no growth after 24 hours. Magnesium added. We will decrease Solu-Medrol to 40 mg every 8 hours. Patient is followed by Dr. Malave. Possible discharge tomorrow 06/06: Patient continues to have some shortness of breath especially with activity and getting to the bathroom. She has a cough. She states she continues to have decreased energy but is feeling better since admission. We will plan to continue current medications which include Cymetra 40 every 8 hours and recheck chest x-ray in the morning. Patient remains afebrile, heart rate in the 80s, blood pressure 125/66, pulse ox is documented as 96% on 3 L the patient relates that she dropped down to 89% but this is not documented in her chart. We will ask for a home oxygen assessment to be done. Plan to monitor patient overnight and possible discharge by tomorrow. 06/07: Patient states that she is only 50% better since she came in. Discharge will be held until tomorrow. Dr. Malave is in agreement. Patient will be continued on IV Solu-Medrol. Nursing to check ambulating pulse ox of for home O2 need. Patient has been using CPAP and Dr. Malave has advised her to get this upgraded. Patient will be monitored overnight and possible discharge for tomorrow. 06/08: Patient continues to have some upper airway concerns. Her lungs are clear to auscultation. She has been on Solu-Medrol which will be transitioned to Medrol Dosepak. Chest x-ray from yesterday reveals no active intrathoracic disease. Pneumonia has been ruled out. Patient will be discharged home today in stable condition. Discharge diagnoses: 1. Asthma exacerbation with mild persistent asthma, tracheobronchitis and possibility of early pneumonia has been ruled out. 2. Seasonal ALLERGIES. 3. Headache secondary to cough. 4. Diabetes mellitus type 2. 5. Hypothyroidism. 6. Hypertension. 7. Hyperlipidemia. 8. Recurrent depression and generalized anxiety disorder. 9. Fibromyalgia. Discharge plan: Discharge home Impression and plan of care have been directed as dictated by the signing physician. Jacinta Hernandez nurse practitioner acting as scribe for signing physician. Patient Condition at Discharge: Good Plan - Discharge Summary Discharge Rx Participant: No New Discharge Prescriptions: New Magnesium Oxide [Mag-Ox] 400 mg PO BID tab methylPREDNISolone Dose Pack [Medrol Dose Pack] 4 mg PO DIRECTED #21 package Famotidine [Pepcid] 20 mg PO DAILY tab Continue guaiFENesin [Mucinex] 600 mg PO BID PRN PRN Reason: Congestion Cetirizine HCl [Zyrtec] 10 mg PO QAM Ibuprofen [Motrin] 800 mg PO Q8H PRN PRN Reason: Pain Sertraline [Zoloft] 150 mg PO QAM Montelukast [Singulair] 10 mg PO HS Levothyroxine Sodium [Synthroid] 50 mcg PO QAM metFORMIN HCL ER [Glucophage Xr] 500 mg PO BID Losartan [Cozaar] 50 mg PO DAILY Focus Vitamin 1 tab PO BID@1200,2100 amLODIPine [Norvasc] 2.5 mg PO BID Aspirin EC [Ecotrin Low Dose] 81 mg PO HS Fluticasone Nasal [place] [Flonase Nasal [place]] 1 spray EA NOSTRIL HS Fluticasone/Salmeterol [Advair 250-50 Diskus] 1 puff INHALATION RT-BID PRN PRN Reason: Shortness Of Breath Pravastatin Sodium [Pravachol] 20 mg PO HS Pregabalin [Lyrica] 100 mg PO BID Benzonatate [Tessalon Perles] 200 mg PO TID PRN PRN Reason: Cough ALPRAZolam [Xanax] 0.5 mg PO DAILY PRN PRN Reason: Anxiety Acyclovir 1 applic TOPICAL DAILY PRN PRN Reason: Cold Sores Discharge Medication List Cetirizine HCl [Zyrtec] 10 mg PO QAM 03/12/16 [History] Ibuprofen [Motrin] 800 mg PO Q8H PRN 03/12/16 [History] Levothyroxine Sodium [Synthroid] 50 mcg PO QAM 03/12/16 [History] Losartan [Cozaar] 50 mg PO DAILY 03/12/16 [History] Montelukast [Singulair] 10 mg PO HS 03/12/16 [History] Sertraline [Zoloft] 150 mg PO QAM 03/12/16 [History] guaiFENesin [Mucinex] 600 mg PO BID PRN 03/12/16 [History] metFORMIN HCL ER [Glucophage Xr] 500 mg PO BID 03/12/16 [History] ALPRAZolam [Xanax] 0.5 mg PO DAILY PRN 06/04/18 [History] Acyclovir 1 applic TOPICAL DAILY PRN 06/04/18 [History] Aspirin EC [Ecotrin Low Dose] 81 mg PO HS 06/04/18 [History] Benzonatate [Tessalon Perles] 200 mg PO TID PRN 06/04/18 [History] Fluticasone Nasal [place] [Flonase Nasal [place]] 1 spray EA NOSTRIL HS 06/04/18 [History] Fluticasone/Salmeterol [Advair 250-50 Diskus] 1 puff INHALATION RT-BID PRN 06/04/18 [History] Focus Vitamin 1 tab PO BID@1200,2100 06/04/18 [History] Pravastatin Sodium [Pravachol] 20 mg PO HS 06/04/18 [History] Pregabalin [Lyrica] 100 mg PO BID 06/04/18 [History] amLODIPine [Norvasc] 2.5 mg PO BID 06/04/18 [History] Famotidine [Pepcid] 20 mg PO DAILY tab 06/08/18 [Rx] Magnesium Oxide [Mag-Ox] 400 mg PO BID tab 06/08/18 [Rx] methylPREDNISolone Dose Pack [Medrol Dose Pack] 4 mg PO DIRECTED #21 package 06/08/18 [Rx] Follow up Appointment(s)/Referral(s): Eileen Marin MD [STAFF PHYSICIAN] - 1 Week Peter Meier MD [Primary Care Provider] - 1 Week
[2018-06-08] MEDS: FAMOTIDINE 20 MG TAB PO SCH (11:35)
--- NOTE | 2018-06-08 12:02 | P.PN ---
Subjective Progress Note Date: 06/08/18 Principal diagnosis: Acute exacerbation of bronchial asthma and tracheobronchitis. This is a 68-year-old white female patient with history of mild bronchial asthma, obstructive sleep apnea on CPAP therapy, diabetes, fibromyalgia, hypertension, who presented to the hospital on 06/04/2018 with complaints of cough, congestion, wheezing. Patient follows with Dr. Joseph and was seen for these symptoms, she was started on azithromycin and prednisone. She completed her azithromycin, however she failed to improve. She also complained of some facial pain and pressure from her sinus congestion. He did have fevers of 100F. No chest pain, no neck pain, no neck stiffness. He follows with Dr. Allan for her asthma, and her maintenance medications include Advair, Flonase, Singulair and Zyrtec. Chest x-ray was reviewed by Dr. Malave, and showed prominence of the right suprahilar region, and some density at the right base possibly related to early pneumonia. Flu screen was negative, white blood cell count is 9.5, hemoglobin is 12.7, correlation profile was within normal limits, electrolytes and renal profile were unremarkable, plasma lactic acid was 1.2, troponin is negative, proBNP was within normal limit is 63. Patient is a lifetime nonsmoker. Patient has been is utilizing her CPAP machine at home, however she thinks her pressures may be too high for her, during our evaluation patient's nob is broken off CPAP machine, making it difficult to adjust settings. It is requesting a new mask, and in addition she may need to have a new CPAP unit. Reevaluated today on 06/08/2018, patient is feeling much better, breathing a lot easier, hardly any cough no wheezing no shortness of breath, over 80% improved compared to baseline. Hence I will give the patient to be discharged home today. Patient is afebrile, her O2 saturations 93% on room air, and she is hemo dynamically stable. Objective - Vital Signs Vital signs: Vital Signs Temp 97.9 F 06/08/18 07:55 Pulse 88 06/08/18 09:09 Resp 18 06/08/18 08:00 BP 159/76 06/08/18 07:55 Pulse Ox 93 L 06/08/18 07:55 Intake & Output 06/07/18 06/08/18 06/08/18 18:59 06:59 18:59 Other: # Voids 1 1 - Exam Physical Exam: Revealed a 68-year-old female in no distress, very pleasant. Head: Atraumatic, normocephalic. HEENT:[Neck is supple.] [No neck masses.] [No thyromegaly.] [No JVD.] Chest: [Clear throughout, minimal wheezing on forced expiratory maneuver only. Cardiac Exam: [Normal S1 and S2, no S3 gallop, no murmur.] Abdomen: [Soft, nontender, no megaly, no rebound, no guarding, normal bowel sounds.] Extremities: [No clubbing, no edema, no cyanosis.] Neurological Exam: [No focal neurologic deficit.] Lymphatics: No lymphadenopathy. Skin: No rashes. - Labs CBC & Chem 7: 06/04/18 07:40 06/04/18 07:40 Labs: Abnormal Lab Results - Last 24 Hours (Table) 06/07/18 06/07/18 06/08/18 Range/Units 17:00 20:57 06:56 POC Glucose (mg/dL) 191 H 195 H 209 H (75-99) mg/dL Microbiology - Last 24 Hours (Table) 06/04/18 07:40 Blood Culture - Preliminary Blood No Growth after 96 hours 06/04/18 20:20 Gram Stain - Final Sputum Sputum Culture - Final Assessment and Plan Assessment: Impression: Acute asthma exacerbation, Acute tracheobronchitis, doubt pneumonia. Obstructive sleep apnea syndrome Fibromyalgia Type 2 diabetes Benign essential hypertension. Patient could be switched to oral prednisone at 40 mg and tapered over the next 2 weeks, oral antibiotics, clear to be discharged home today, and follow-up with me next week on outpatient basis. Time with Patient: Less than 30
== END 2018-06-08 13:45 | disposition home or self-care (01) | DRG 202 ==
LOC: EC 07:09 → 4MS4W 09:23 → 6PED 06-07 13:32
PROVIDERS: ADMIT Family Medicine; ATTEND Family Medicine
PROC: 5A09457 Assistance with Respiratory Ventilation, 24-96 Consecutive Hours, Continuous Positive Airway Pressure (ICD-10-PCS; principal; 2018-06-04)
DX: J45.31 Mild persistent asthma with (acute) exacerbation (principal); J96.01 Acute respiratory failure with hypoxia; J44.0 Chronic obstructive pulmonary disease with (acute) lower respiratory infection; F33.9 Major depressive disorder, recurrent, unspecified; E11.65 Type 2 diabetes mellitus with hyperglycemia; I34.0 Nonrheumatic mitral (valve) insufficiency; J20.9 Acute bronchitis, unspecified; M79.7 Fibromyalgia; I10 Essential (primary) hypertension; Z87.01 Personal history of pneumonia (recurrent); M54.9 Dorsalgia, unspecified; G89.29 Other chronic pain; M70.52 Other bursitis of knee, left knee; N20.0 Calculus of kidney; K21.9 Gastro-esophageal reflux disease without esophagitis; G47.33 Obstructive sleep apnea (adult) (pediatric); E78.5 Hyperlipidemia, unspecified; G25.81 Restless legs syndrome; E03.9 Hypothyroidism, unspecified; F41.1 Generalized anxiety disorder; Z79.84 Long term (current) use of oral hypoglycemic drugs; Z79.890 Hormone replacement therapy; Z79.899 Other long term (current) drug therapy; Z90.710 Acquired absence of both cervix and uterus; Z96.651 Presence of right artificial knee joint; Z86.010 Personal history of colon polyps; Z87.442 Personal history of urinary calculi; Z88.5 Allergy status to narcotic agent; Z88.8 Allergy status to other drugs, medicaments and biological substances; Z88.6 Allergy status to analgesic agent; Z88.1 Allergy status to other antibiotic agents; Z91.040 Latex allergy status; Z82.3 Family history of stroke; Z82.49 Family history of ischemic heart disease and other diseases of the circulatory system
CPT/HCPCS: 36415; 71046; 80053; 83036; 83605; 83735; 83880; 84484; 85025; 85610; 85730; 87040; 87070; 87205; 87502; 94640; 94760; 96365; 96375; 99285

== ENCOUNTER → 2020-03-27 | Outpatient (CLI) | payer MEDICARE ==
[2020-03-27 16:06] LABS: African American GFR (CKD) 85.4 (60.0-200.0); Albumin 4.4 g/dL (3.80-4.90); Albumin/Globulin Ratio 2.44 (1.60-3.17); BUN/Creat Ratio 21.25 Ratio (12.00-20.00); Calcium 9.1 mg/dL (8.7-10.3); Chol/HDL Ratio 4.43; Globulin 1.8 g/dL (1.6-3.3); LDL Cholesterol,Calculated 93.4 mg/dL (0.0-131.0); Magnesium 1.8 mg/dL (1.5-2.4); Non-African American GFR(CKD) 73.7 (60.0-200.0); Potassium 4.1 mmol/L (3.5-5.5); Total Bilirubin 0.4 mg/dL (0.2-1.2); Total Protein 6.2 g/dL (6.2-8.2); VLDL Calculation 43.6 mg/dL (5.00-40.00)
[2020-03-27 17:03] LABS: HCT 39.6 % (37.2-46.3); HGB 12.2 g/dL (12.0-15.0); MCH 27.4 pg (27.0-32.0); MCHC 30.8 g/dL (32.0-37.0); MCV 88.8 fL (80.0-97.0); Mean Platelet Volume 10.6 fL (9.5-12.2); Platelet Count 230 X 10*3/uL (140-440); RBC 4.46 X 10*6/uL (4.10-5.20); RDW 14.8 % (11.5-14.5); WBC 7.08 X 10*3/uL (4.50-10.00)
== END | disposition home or self-care (01) ==
LOC: LABWHC1 10:18
PROVIDERS: ATTEND Nurse Practitioner Adult Health
DX: I10 Essential (primary) hypertension (principal); E78.5 Hyperlipidemia, unspecified; R73.03 Prediabetes
CPT/HCPCS: 36415; 80053; 80061; 83036; 83735; 84443; 84481; 85027

== ENCOUNTER 2020-12-25 14:34 | Observation (INO) | payer MEDICARE ==
--- NOTE | 2020-12-25 16:28 | XR ---
EXAMINATION TYPE: XR chest 2V DATE OF EXAM: 12/25/2020 COMPARISON: Chest x-ray August 20, 2018 HISTORY: Altered mental status and weakness TECHNIQUE: Frontal and lateral views of the chest are obtained. FINDINGS: There is no focal air space opacity, pleural effusion, or pneumothorax seen. The cardiac silhouette size is upper limits of normal currently. Overlying EKG leads are present. The osseous st ructures are intact. IMPRESSION: No acute process. No significant change from prior.
--- NOTE | 2020-12-25 16:30 | CT ---
EXAMINATION TYPE: CT brain wo con DATE OF EXAM: 12/25/2020 COMPARISON: None HISTORY: 70-year-old female transient speech deficit. Episode of dizziness, headache and left sided f acial droop. TECHNIQUE: Examination was done in axial plane without intravenous contrast. Coronal and sagittal r econstructions performed. CT DLP: 1086.4 mGycm Automated exposure control for dose reduction was used. FINDINGS: There is no evidence of acute intracranial hemorrhage, acute ischemic changes, mass, mass-effect, or extra-axial fluid collection. There is no effacement of cerebral sulci or basal subarachnoid cister ns. There is no hydrocephalus. There is no midline shift. Mendoza-white matter distinction is preserv ed. Mild age-related cerebral cortical volume loss. Some frothy partial opacification along the posterior aspect of the left sphenoid sinus. Otherwise, p aranasal sinuses and mastoid air cells well pneumatized. Orbits and globes are intact. IMPRESSION: Mild age-related cerebral cortical volume loss. No acute intracranial abnormality seen. Correlate for possible acute left sphenoid sinusitis.
[2020-12-25 16:42] LABS: Basophils # (A) 0.1 k/uL (0-0.2); Basophils % (A) 1 %; Eosinophils # (A) 0.5 k/uL (0-0.7); Eosinophils % (A) 5 %; HCT 38.7 % (34.0-46.0); HGB 12.5 gm/dL (11.4-16.0); Lymphocytes % (A) 21 %; MCH 28.2 pg (25.0-35.0); MCHC 32.4 g/dL (31.0-37.0); MCV 86.9 fL (80.0-100.0); Mean Platelet Volume 7.4; Monocytes # (A) 0.4 k/uL (0-1.0); Monocytes % (A) 5 %; Neutrophils # (A) 6.5 k/uL (1.3-7.7); Neutrophils % (A) 67 %; Platelet Count 232 k/uL (150-450); RBC 4.45 m/uL (3.80-5.40); RDW 14.4 % (11.5-15.5); WBC 9.6 k/uL (3.8-10.6)
[2020-12-25 16:50] LABS: ALT 42 U/L (4-34); AST 46 U/L (14-36); African American GFR (CKD) >90 (>60 ml/min/1.73 sqM); Albumin 4.1 g/dL (3.5-5.0); Alkaline Phosphatase 90 U/L (38-126); Anion Gap 8 mmol/L; Blood Urea Nitrogen 12 mg/dL (7-17); Calcium 9.4 mg/dL (8.4-10.2); Carbon Dioxide 22 mmol/L (22-30); Chloride 109 mmol/L (98-107); Glucose 86 mg/dL (74-99); Non-African American GFR(CKD) >90 (>60 ml/min/1.73 sqM); Potassium 3.9 mmol/L (3.5-5.1); Sodium 139 mmol/L (137-145); Total Bilirubin 0.5 mg/dL (0.2-1.3); Total Protein 6.9 g/dL (6.3-8.2)
[2020-12-25 16:59] LABS: INR 0.9 (<1.2); Partial Thromboplastin Time 24.7 sec (22.0-30.0); Prothrombin Time 10.2 sec (9.0-12.0)
--- NOTE | 2020-12-25 18:36 | ED ---
Neuro HPI - General Chief Complaint: Neuro Symptoms/Deficit Stated Complaint: muscle spasms Time Seen by Provider: 12/25/20 14:40 Source: EMS Mode of arrival: EMS Limitations: no limitations - History of Present Illness Is the patient presenting with stroke symptoms?: Yes Initial Comments: Any 1-year-old female past medical history of diabetes, asthma, hypertension, hyperlipidemia presents emergency department for possible TIA. Patient states that she was at home working in the yard today. She came into the house and sat down to watch TV. She states that she didn't feel right. She began having spasms in her back. Daughter witnessed the episode. She then began having left-sided facial droop and slurred speech. The daughter waited for approximately 10 minutes before the symptoms did not spontaneously resolve. She called EMS. Fire was at the house for approximately 20 minutes. During this time her symptoms spontaneously resolved. She denies previous history of stroke. She had no weakness in her upper or lower extremities. Patient arrives to the hospital with no residual symptoms. She did take a baby aspirin at home. She denies any headaches, fevers. No nausea or vomiting. Denies ripping or tearing sensation. No chest pain or shortness of breath. No other alleviating, precipitating or modifying factors - Related Data Home Medications: Home Medications Medication Instructions Recorded Confirmed Cetirizine HCl [Zyrtec] 10 mg PO DAILY 03/12/16 12/25/20 Levothyroxine Sodium [Synthroid] 50 mcg PO DAILY 03/12/16 12/25/20 Losartan [Cozaar] 50 mg PO HS 03/12/16 12/25/20 Montelukast [Singulair] 10 mg PO HS 03/12/16 12/25/20 Sertraline [Zoloft] 150 mg PO DAILY 03/12/16 12/25/20 metFORMIN HCL ER [Glucophage XR] 500 mg PO BID 03/12/16 12/25/20 Pregabalin [Lyrica] 100 mg PO BID 06/04/18 12/25/20 amLODIPine [Norvasc] 5 mg PO BID 12/25/20 12/25/20 Fluticasone Propion/Salmeterol 1 puff INHALATION RT-BID 12/26/20 12/26/20 [Wixela 500-50 Inhub] Previous Rx's Medication Instructions Recorded Aspirin 81 mg PO DAILY #21 tab 12/27/20 Atorvastatin [Lipitor] 40 mg PO DAILY #30 tablet 12/27/20 Clopidogrel [Plavix] 75 mg PO DAILY #30 tab 12/27/20 Allergies/Adverse Reactions: Allergies Allergy/AdvReac Type Severity Reaction Status Date / Time cephalexin monohydrate Allergy Itching Verified 12/25/20 19:09 [From Keflex] codeine Allergy Hallucinati Verified 12/25/20 19:09 ons hydrocodone bitartrate Allergy Hallucinati Verified 12/25/20 19:09 [From Lortab] ons latex Allergy Rash/Hives Verified 12/25/20 19:09 Review of Systems ROS Statement: Those systems with pertinent positive or pertinent negative responses have been documented in the HPI. ROS Other: All systems not noted in ROS Statement are negative. General Exam Limitations: no limitations General appearance: alert, in no apparent distress Head exam: Present: atraumatic, normocephalic, normal inspection Eye exam: Present: normal appearance, PERRL, EOMI. Absent: scleral icterus, c onjunctival injection, periorbital swelling ENT exam: Present: normal exam, mucous membranes moist Neck exam: Present: normal inspection. Absent: tenderness, meningismus, lymphadenopathy Respiratory exam: Present: normal lung sounds bilaterally. Absent: respiratory distress, wheezes, rales, rhonchi, stridor Cardiovascular Exam: Present: regular rate, normal rhythm, normal heart sounds. Absent: systolic murmur, diastolic murmur, rubs, gallop, clicks GI/Abdominal exam: Present: soft, normal bowel sounds. Absent: distended, tenderness, guarding, rebound, rigid Extremities exam: Present: normal inspection, full ROM, normal capillary refill. Absent: tenderness, pedal edema, joint swelling, calf tenderness Back exam: Present: normal inspection Neurological exam: Present: alert, oriented X3, CN II-XII intact Psychiatric exam: Present: normal affect, normal mood Skin exam: Present: warm, dry, intact, normal color. Absent: rash Stroke MDM - Lab Data Result diagrams: 12/26/20 05:43 12/26/20 05:43 Lab Results 12/25/20 12/25/20 12/25/20 Range/Units 16:29 16:29 16:29 WBC 9.6 (3.8-10.6) k/uL RBC 4.45 (3.80-5.40) m/uL Hgb 12.5 (11.4-16.0) gm/dL Hct 38.7 (34.0-46.0) % MCV 86.9 (80.0-100.0) fL MCH 28.2 (25.0-35.0) pg MCHC 32.4 (31.0-37.0) g/dL RDW 14.4 (11.5-15.5) % Plt Count 232 (150-450) k/uL MPV 7.4 Neutrophils % 67 % Lymphocytes % 21 % Monocytes % 5 % Eosinophils % 5 % Basophils % 1 % Neutrophils # 6.5 (1.3-7.7) k/uL Lymphocytes # 2.0 (1.0-4.8) k/uL Monocytes # 0.4 (0-1.0) k/uL Eosinophils # 0.5 (0-0.7) k/uL Basophils # 0.1 (0-0.2) k/uL PT 10.2 (9.0-12.0) sec INR 0.9 (<1.2) APTT 24.7 (22.0-30.0) sec Sodium 139 (137-145) mmol/L Potassium 3.9 (3.5-5.1) mmol/L Chloride 109 H (98-107) mmol/L Carbon Dioxide 22 (22-30) mmol/L Anion Gap 8 mmol/L BUN 12 (7-17) mg/dL Creatinine 0.61 (0.52-1.04) mg/dL Est GFR (CKD-EPI)AfAm >90 (>60 ml/min/1.73 sqM) Est GFR (CKD-EPI)NonAf >90 (>60 ml/min/1.73 sqM) Glucose 86 (74-99) mg/dL Calcium 9.4 (8.4-10.2) mg/dL Total Bilirubin 0.5 (0.2-1.3) mg/dL AST 46 H (14-36) U/L ALT 42 H (4-34) U/L Alkaline Phosphatase 90 (38-126) U/L Troponin I (0.000-0.034) ng/mL Total Protein 6.9 (6.3-8.2) g/dL Albumin 4.1 (3.5-5.0) g/dL TSH 4.010 (0.465-4.680) mIU/L 12/25/20 Range/Units 16:29 WBC (3.8-10.6) k/uL RBC (3.80-5.40) m/uL Hgb (11.4-16.0) gm/dL Hct (34.0-46.0) % MCV (80.0-100.0) fL MCH (25.0-35.0) pg MCHC (31.0-37.0) g/dL RDW (11.5-15.5) % Plt Count (150-450) k/uL MPV Neutrophils % % Lymphocytes % % Monocytes % % Eosinophils % % Basophils % % Neutrophils # (1.3-7.7) k/uL Lymphocytes # (1.0-4.8) k/uL Monocytes # (0-1.0) k/uL Eosinophils # (0-0.7) k/uL Basophils # (0-0.2) k/uL PT (9.0-12.0) sec INR (<1.2) APTT (22.0-30.0) sec Sodium (137-145) mmol/L Potassium (3.5-5.1) mmol/L Chloride (98-107) mmol/L Carbon Dioxide (22-30) mmol/L Anion Gap mmol/L BUN (7-17) mg/dL Creatinine (0.52-1.04) mg/dL Est GFR (CKD-EPI)AfAm (>60 ml/min/1.73 sqM) Est GFR (CKD-EPI)NonAf (>60 ml/min/1.73 sqM) Glucose (74-99) mg/dL Calcium (8.4-10.2) mg/dL Total Bilirubin (0.2-1.3) mg/dL AST (14-36) U/L ALT (4-34) U/L Alkaline Phosphatase (38-126) U/L Troponin I <0.012 (0.000-0.034) ng/mL Total Protein (6.3-8.2) g/dL Albumin (3.5-5.0) g/dL TSH (0.465-4.680) mIU/L - Medical Decision Making Upon arrival patient is placed into room 1. NIH is assessed and the patient has a score of 0 at this time. IV is established laboratory studies were conducted. Patient did go over for CT of her brain. Laboratory studies are reviewed. AST 46, ALT 42. CT of the patient's brain demonstrates mild age-related cerebral cortical volume loss. No acute intracranial abnormality. Chest x-ray demonstrates no acute process. Did recommend admission for neurology consultation. Spoke with Dr. Lawrence who agreed to admit the patient. She remained in stable condition awaiting a bed 12/25/20 18:36 EKG demonstrates sinus bradycardia with a ventricular rate of 59. [place] interval 132. QRS 82. QTC of 437. Inverted T-wave with some ST depression in lead 3. No acute ST segment elevation Past Medical History Past Medical History: Asthma, Diabetes Mellitus, Fibromyalgia, GERD/Reflux, GI Bleed, Hyperlipidemia, Hypertension, Pneumonia, Sleep Apnea/CPAP/BIPAP Additional Past Medical History / Comment(s): Acute respiratory failure when she had bilateral pneumonia, chronic bronchitis, seasonal allergies, sinus problems, JUSTIN with CPap use, "Pre" diabetic, neuropathy R foot, heart murmur, MVR, past kidney stones with surgery, lower GI bleed, benign colon polyps, L knee bursitis, RLS, anemia, past foot fracture and bilateral wrist fractures, chronic fatigue, hypothyroid, UTIs. History of Any Multi-Drug Resistant Organisms: None Reported Past Surgical History: Heart Catheterization, Hysterectomy, Joint Replacement, Orthopedic Surgery, Tonsillectomy Additional Past Surgical History / Comment(s): Total R knee arthroplasty, laser surgery for kidney stones, L above eye cyst removed and cyst removed from back of head, R wrist fracture with surgery, colonoscopy/polypectomy, precancerous skin lesions removed, R foot bunionectomy. Past Anesthesia/Blood Transfusion Reactions: No Reported Reaction Past Psychological History: Depression Smoking Status: Never smoker Past Alcohol Use History: Rare Past Drug Use History: None Reported - Past Family History Mother Family Medical History: CVA/TIA Additional Family Medical History / Comment(s): DUE TO STROKE AT THE AGE OF 86YRS. Brother(s) Family Medical History: Myocardial Infarction ([place]) Additional Family Medical History / Comment(s): ONE BROTHER OF A [place] IN HIS EARLY 60S. OTHER BROTHER: "HEART PROBLEMS" Father Family Medical History: CVA/TIA Additional Family Medical History / Comment(s): FROM STROKE at 75 yrs. Daughter(s) Additional Family Medical History / Comment(s): The patient has 3 daughters. One is being evaluated for cancer, one has history of rheumatoid arthritis and one with no major medical problems. Patient does not have any sisters. Course Vital Signs 12/25/20 12/25/20 12/25/20 14:40 16:32 18:00 Temperature 98.0 F Pulse Rate 64 63 58 L Respiratory 18 18 20 Rate Blood Pressure 134/77 128/74 163/68 O2 Sat by Pulse 98 99 97 Oximetry 12/25/20 12/25/20 20:00 23:54 Temperature 97.8 F Pulse Rate 60 64 Respiratory 20 20 Rate Blood Pressure 130/77 165/70 O2 Sat by Pulse 98 96 Oximetry Disposition Clinical Impression: TIA (transient ischemic attack) Disposition: ADMITTED IP TO THIS [facility] Condition: Stable Is patient prescribed a controlled substance at d/c from ED?: No Decision to Admit Reason: Admit from EC Decision Date: 12/25/20 Decision Time: 18:37
[2020-12-25] MEDS ORDERED: ASPIRIN 81 MG PO STA (18:37)
[2020-12-25] MEDS ORDERED: NALOXONE 0.4 MG/ML 1 ML VIAL IV PRN (18:38)
[2020-12-26] MEDS ORDERED: IBUPROFEN 800 MG TAB PO PRN (00:07)
[2020-12-26] MEDS ORDERED: IBUPROFEN 400 MG TAB PO PRN (01:01)
[2020-12-26] MEDS: SERTRALINE 50 MG TAB PO SCH (08:26)
[2020-12-26] MEDS: PREGABALIN 100 MG CAP PO SCH ×2 (08:26→20:51)
[2020-12-26] MEDS: LEVOTHYROXINE 50 MCG TAB PO SCH (08:27)
[2020-12-26] MEDS: amLODIPine 5 MG TAB PO SCH ×2 (08:27→20:51)
[2020-12-26] MEDS: LORATADINE 10 MG TAB PO SCH (08:27)
[2020-12-26 09:54] LABS: Basophils # (A) 0.04 X 10*3/uL (0.00-0.10); Basophils % (A) 0.5 %; Eosinophils # (A) 0.43 X 10*3/uL (0.04-0.35); Eosinophils % (A) 5.8 %; HGB 11.5 g/dL (12.0-15.0); Lymphocytes # (A) 1.96 X 10*3/uL (0.90-5.00); Lymphocytes % (A) 26.3 %; MCH 28.4 pg (27.0-32.0); MCHC 31.9 g/dL (32.0-37.0); MCV 88.9 fL (80.0-97.0); Mean Platelet Volume 10.4 fL (9.5-12.2); Monocytes # (A) 0.59 X 10*3/uL (0.20-1.00); Monocytes % (A) 7.9 %; Neutrophils # (A) 4.39 X 10*3/uL (1.80-7.70); Neutrophils % (A) 58.8 %; Platelet Count 221 X 10*3/uL (140-440); RBC 4.05 X 10*6/uL (4.10-5.20); RDW 14.3 % (11.5-14.5); WBC 7.46 X 10*3/uL (4.50-10.00)
[2020-12-26 10:22] LABS: African American GFR (CKD) 100.3 (60.0-200.0); Anion Gap 11.1 mmol/L (4.00-12.00); BUN/Creat Ratio 17.14 Ratio (12.00-20.00); Carbon Dioxide 22.9 mmol/L (21.6-31.8); Non-African American GFR(CKD) 86.6 (60.0-200.0)
--- NOTE | 2020-12-26 12:34 | CT ---
EXAMINATION TYPE: CT angio head neck DATE OF EXAM: 12/26/2020 HISTORY: Weakness. TIA. COMPARISON: None. CT DLP: 412.7 mGycm. Automated Exposure Control for Dose Reduction was Utilized. TECHNIQUE: CTA scan of the head and neck are performed with IV Contrast, patient injected with 65 mL of Isovue 370, axial images are obtained, coronal and sagittal reformatted images are reviewed. 3D r econstructed images are created on an independent workstation and reviewed. FINDINGS: Carotid/Vascular Structures: There is bovine type aortic arch which is normal variant. No significant plaque or stenosis. No significant plaque or stenosis in the common carotid arteries bilaterally. F ocal mild to moderate noncalcified plaque left carotid bulb level posteriorly extending into the prox imal internal carotid artery without significant stenosis. No significant right-sided plaque. External carotid arteries bilaterally without significant plaque or stenosis. No significant focal pl aque or stenosis in the internal carotid arteries bilaterally. Some tortuous course distally is prese nt. Codominant vertebral arteries patent to basilar junction. No significant focal stenosis or aneurysm. Patent right-sided posterior communicating artery. Hypoplastic or absent left-sided posterior communi cating artery. Hypoplastic or small caliber right A1 segment with filling of the A2 segment due to pa tent anterior communicating artery. No significant focal stenosis or aneurysm in the anterior circula tion. Other: Moderate spurring and disc space narrowing C4-C5 through the C6-C7 levels. IMPRESSION: 1. No significant stenosis in common or internal carotid arteries bilaterally. 2. No significant stenosis or aneurysm at the level of the [place]. NASCET criteria was used in interpretation of this exam?
[2020-12-26] MEDS: ASPIRIN 81 MG PO SCH (13:26)
[2020-12-26] MEDS: CLOPIDOGREL 75 MG TAB PO SCH (13:26)
--- NOTE | 2020-12-26 13:27 | P.CNNES ---
History of Present Illness Consult date: 12/26/20 Requesting physician: Jess Marie Reason for Consult: Possible TIA History of Present Illness: Patient is a 70-year-old female came to the hospital yesterday by ambulance at 2:34 PM. As per EMS flow sheet, when they arrived, patient was alert and oriented 4, complaining of mid back spasms. Patient stated that she was doing yard work just before it started. She has been doing yard work for an hour. She also felt like her face was drooping. Denied any recent trauma, chest pain difficulty breathing, nausea or vomiting. No obvious injuries were noted. Patient's blood pressure was 138/86, pulse is 72, respirations 16 and saturation 96%. Blood sugar 161. Patient tells me that after she came back home after started having severe back spasms, she sat in the chair, when she started feeling lightheaded, felt will pass out. She had trouble talking, as couldn't get words out. She started stuttering. Also felt nauseous. Patient states that she felt her face was droopy on one side, and elevated up on the other side, although it was not visible to her daughter or anyone else. Patient states that her neurological symptoms lasted for 10 minutes and then went away. However the back spasms persisted. Patient's vitals on arrival blood pressure 134/77, pulse rate 64 and temperature 98.0. Patient's blood test shows normal CBC, PT/PTT, basic metabolic panel. AST is mildly elevated 46 and ALT 42. Troponin negative. TSH is normal. Park virus PCR negative. CT head showed mild age-related cerebral cortical volume loss. No acute process. Correlate for possible acute left sphenoid sinusitis. Patient's home medications include amlodipine 5 mg twice a day, Lyrica 100 mg twice a day, Pravachol 20 mg, losartan 50 mg, metformin, levothyroxine, sertraline, ibuprofen and sertraline and aspirin 81 mg daily which she takes very regularly. Patient has history of hypertension for 6 years. Also has hyperlipidemia. Patient has borderline diabetes diagnosed 4-5 years ago. She takes metformin t wice a day. She has never smoked, drinks alcohol very occasionally. Patient denies any previous history of strokes or TIA. She has a very strong family history of strokes, as her mother at age 86 and father at age 75, both of them from the strokes. Review of Systems Patient states that she has history of back spasms a few years ago but it was not as severe. Patient also has symptoms of possible restless legs versus PLMS. Sometimes her arm would fly out. Denies any fever or chills. All other review of systems unremarkable. All 14 point of review systems are reviewed. Past Medical History Past Medical History: Asthma, Diabetes Mellitus, Fibromyalgia, GERD/Reflux, GI Bleed, Hyperlipidemia, Hypertension, Pneumonia, Sleep Apnea/CPAP/BIPAP Additional Past Medical History / Comment(s): Acute respiratory failure when she had bilateral pneumonia, chronic bronchitis, seasonal allergies, sinus problems, JUSTIN with CPap use, "Pre" diabetic, neuropathy R foot, heart murmur, MVR, past kidney stones with surgery, lower GI bleed, benign colon polyps, L knee bursitis, RLS, anemia, past foot fracture and bilateral wrist fractures, chronic fatigue, hypothyroid, UTIs. History of Any Multi-Drug Resistant Organisms: None Reported Past Surgical History: Heart Catheterization, Hysterectomy, Joint Replacement, Orthopedic Surgery, Tonsillectomy Additional Past Surgical History / Comment(s): Total R knee arthroplasty, laser surgery for kidney stones, L above eye cyst removed and cyst removed from back of head, R wrist fracture with surgery, colonoscopy/polypectomy, precancerous skin lesions removed, R foot bunionectomy. Past Anesthesia/Blood Transfusion Reactions: No Reported Reaction Past Psychological History: Depression Additional Psychological History / Comment(s): Pt resides alone. She has a cat. She has a nebulizer and a CPap. She owns a walker but does not need to use it. She drives. Smoking Status: Never smoker Past Alcohol Use History: Rare Additional Past Alcohol Use History / Comment(s): The patient is a lifelong nonsmoker, no marijuana or illicit drug use, alcohol use is rare. Patient does have a CPAP and nebulizer. No home oxygen. Past Drug Use History: None Reported - Past Family History Mother Family Medical History: CVA/TIA Additional Family Medical History / Comment(s): DUE TO STROKE AT THE AGE OF 86YRS. Brother(s) Family Medical History: Myocardial Infarction (RI) Additional Family Medical History / Comment(s): ONE BROTHER OF A RI IN HIS EARLY 60S. OTHER BROTHER: "HEART PROBLEMS" Father Family Medical History: CVA/TIA Additional Family Medical History / Comment(s): FROM STROKE at 75 yrs. Daughter(s) Additional Family Medical History / Comment(s): The patient has 3 daughters. One is being evaluated for cancer, one has history of rheumatoid arthritis and one with no major medical problems. Patient does not have any sisters. Medications and Allergies Home Medications Medication Instructions Recorded Confirmed Type Cetirizine HCl [Zyrtec] 10 mg PO DAILY 03/12/16 12/25/20 History Ibuprofen [Motrin] 800 mg PO TID PRN 03/12/16 12/25/20 History Levothyroxine Sodium [Synthroid] 50 mcg PO DAILY 03/12/16 12/25/20 History Losartan [Cozaar] 50 mg PO HS 03/12/16 12/25/20 History Montelukast [Singulair] 10 mg PO HS 03/12/16 12/25/20 History Sertraline [Zoloft] 150 mg PO DAILY 03/12/16 12/25/20 History metFORMIN HCL ER [Glucophage XR] 500 mg PO BID 03/12/16 12/25/20 History Pravastatin Sodium [Pravachol] 20 mg PO HS 06/04/18 12/25/20 History Pregabalin [Lyrica] 100 mg PO BID 06/04/18 12/25/20 History amLODIPine [Norvasc] 5 mg PO BID 12/25/20 12/25/20 History Fluticasone Propion/Salmeterol 1 puff INHALATION RT-BID 12/26/20 12/26/20 History [Wixela 500-50 Inhub] Allergies Allergy/AdvReac Type Severity Reaction Status Date / Time cephalexin monohydrate Allergy Itching Verified 12/25/20 19:09 [From Keflex] codeine Allergy Hallucinati Verified 12/25/20 19:09 ons hydrocodone bitartrate Allergy Hallucinati Verified 12/25/20 19:09 [From Lortab] ons latex Allergy Rash/Hives Verified 12/25/20 19:09 Physical Examination - Vital Signs Vital Signs: Vital Signs Temp Pulse Pulse Resp BP BP Pulse Ox 12/26/20 07:17 97.5 F L 65 17 121/74 93 L 12/26/20 00:37 97.8 F 62 16 159/84 97 12/25/20 23:54 97.8 F 64 20 165/70 96 12/25/20 20:00 60 20 130/77 98 12/25/20 18:00 58 L 20 163/68 97 12/25/20 16:32 63 18 128/74 99 12/25/20 14:40 98.0 F 64 18 134/77 98 Intake and Output 12/25/20 12/26/20 12/26/20 22:59 06:59 14:59 Intake Total 180 Balance 180 Intake: Oral 180 Other: Voiding Method Toilet # Voids 1 Weight 88.904 kg Patient is an elderly female, very pleasant, in no acute distress. Patient is alert awake oriented to time place and person. Speech and language functions are normal. Attention, concentration and fund of knowledge is adequate. On cranial examination, pupils are round and reacting to light, visual becerril are full on confrontation, with no neglect on double simultaneous stimulation. Her extraocular muscles are intact with no nystagmus. Face is symmetric, tongue protrudes to the midline. Palatal elevation and sensation normal, hearing and shoulder shrug normal, facial sensation normal. Shoulder shrug normal. On muscle strength testing, there is no pronator drift and the strength is normal in arms and legs distally and proximally. Deep tendon reflexes are 2 all over in the arms and legs except ankles which are 1+ bilaterally. Plantars downgoing. Sensory to touch is equal with no neglect. Cerebellar function showed no ataxia for [id number] testing. No dysdiadochokinesia. Tone and bulk of muscles normal. Gait normal. On general examination, there is no carotid bruit or murmur, S1-S2 audible. Abdomen is soft nontender. Chest is clear. Peripheral pulses are present. No edema. Results - Laboratory Findings CBC and BMP: 12/26/20 05:43 12/26/20 05:43 Abnormal Lab Findings: Abnormal Labs 12/25/20 12/26/20 12/26/20 16:29 05:43 05:43 RBC 4.05 L Hgb 11.5 L Hct 36.0 L MCHC 31.9 L Immature Gran # 0.05 H Eosinophils # 0.43 H Chloride 109 H Glucose 119 H AST 46 H ALT 42 H Assessment and Plan Assessment: * TIA, manifesting with transient speech difficulty, lightheadedness, nausea and a subjective facial droopiness. Symptoms resolved in 10 minutes. Current neurological examination is nonfocal, NIH stroke scale 0. * Hypertension * Hyperlipidemia * Diabetes * Restless leg syndrome * Strong family history of CVA. * Obesity Plan: * Patient has been on aspirin 81 mg daily for stroke prevention. We will add P lavix 75 mg daily. Patient will stay on dual antiplatelet medication for 21 days and then stop the aspirin and maintain on Plavix 75 mg daily. * Patient underwent CTA of head and neck, which are normal. No stenosis, occlusion or aneurysm. * 2-D echo pending * Fasting lipid panel, hemoglobin A1c. * Patient also has restless leg syndrome. Her TSH is normal. We will check B12 and folate. She may benefit from Requip. * Telemetry monitoring. * Neurology will follow.
--- NOTE | 2020-12-26 13:46 | P.HPIM ---
History of Present Illness H&P Date: 12/26/20 HISTORY OF PRESENT ILLNESS This is a 70-year-old female patient of Dr. Meier with past medical history of diabetes mellitus type 2, diabetic neuropathy, hypertension, hyperlipidemia, hypothyroidism, seasonal ALLERGIES, recurrent depression. Patient states that yesterday she had been doing work in the yard and developed back spasms below her shoulder blades and she went inside the house. She was feeling lightheaded and had trouble finding her words and stuttering, momentary nausea and she thought she was going to pass out. She felt like her shehad shifted on one side but this was not noted by family. Patient's daughter is working from home and called 911. Patient denies having any weakness in her extremities. She did have numbness to the right hand on the side of the fifth metacarpal. Patient does have chronic balance issues which she relates to having knee replacement done. Patient presented to the [facility] emergency center for evaluation. EKG was sinus rhythm CAT scan of the brain revealed mild age-related cerebral cortical volume loss. No acute intracranial abnormality. Correlate for possible acute left sphenoid sinusitis. CT angiogram of the head and neck revealed no significant stenosis and common or internal carotid arteries bilaterally. No significant stenosis or aneurysm of the [place]. REVIEW OF SYSTEMS Constitutional: No fever, no chills, no night sweats. No weight change. No weakness, fatigue or lethargy. No daytime sleepiness. EENT: No headache. No blurred vision or double vision, no loss of vision. No loss of Hearing, no ringing in the ears, no dizziness. No nasal drainage or congestion. No epistaxis. No sore throat. Lungs: No shortness of breath, cough, no sputum production. No wheezing. Cardiovascular: No chest pain, no lower extremity edema. No palpitations. No paroxysmal nocturnal dyspnea. No orthopnea. No lightheadedness or dizziness. No syncopal episodes. Abdominal: No abdominal pain. No nausea, vomiting. No diarrhea. No constipation. No bloody or tarry stools. No loss of appetite. Genitourinary: No dysuria, increased frequency, urgency. No urinary retention. Musculoskeletal: No myalgias. No muscle weakness, no gait dysfunction, no f requent falls. No back pain. No neck pain. Integumentary: No wounds, no lesions. No rash or pruritus. No unusual bruising. No change in hair or nails. Neurologic: No aphasia. No facial droop. No change in mentation. No head injury. No headache. No paralysis. No paresthesia. Psychiatric: No depression. No anxiety. No mood swings. Endocrine: No abnormal blood sugars. No weight change. No excessive sweating or thirst. No cold intolerance. SOCIAL HISTORY The patient is a lifelong nonsmoker, no marijuana or illicit drug use, alcohol use is rare. Patient does have a CPAP and nebulizer. No home oxygen. FAMILY HISTORY Father at age 75 from CVA. Lost Charge Card Clerk at age 86 from CVA with history of multiple TIAs. Patient has 4 brothers, one has passed from MS, one alive with liver cyst and breathing problems, one with history of back surgery and one alive at age 87 with no major medical problems. The patient has 3 daughters. One has history of psoriatic arthritis. Patient does not have any sisters. PHYSICAL EXAMINATION Gen: This is a 70-year-old female resting in bed and appears to be in no acute distress. HEENT: Head is atraumatic, normocephalic. Pupils equal, round. Sclerae is anicteric. NECK: Supple. No JVD. No lymphadenopathy. No thyromegaly. LUNGS: Clear to auscultation. No wheezes or rhonchi. No intercostal retractions. HEART: Regular rate and rhythm. 2/6 systolic murmur at LSB, 1/6 systolic murmur RSB. ABDOMEN: Soft. Bowel sounds are present. No masses. No tenderness. EXTREMITIES: No pedal edema. No calf tenderness. NEUROLOGICAL: Patient is awake, alert and oriented x3. Cranial nerves 2 through 12 are grossly intact. ASSESSMENT AND PLAN 1. TIA with transient speech difficulty, lightheadedness and nausea. Continue aspirin 81 mg daily, neurology consult appreciated. Plavix 75 mg daily added. Plan is for dual antiplatelet medication for 21 days and then stop aspirin and maintaining Plavix. Echocardiogram is pending. PT, OT and speech therapy consults. 2. Diabetes mellitus type 2. Hold metformin 500 mg twice daily. Patient be started on NovoLog scale before meals and at bedtime. 3. Diabetic neuropathy. Continue Lyrica 100 mg twice daily. 4. Hypertension. Continue losartan 50 mg daily, amlodipine 5 mg twice daily. 5. Hyperlipidemia. Continue pravastatin 20 mg at bedtime. 6. Hypothyroidism. Continue levothyroxine 50 g daily. 7. Seasonal ALLERGIES. Continue Claritin 10 mg daily, Singulair 10 mg at bedtime. 8. Recurrent depression. Continue Zoloft 150 mg daily. Patient will be admitted to the hospital for a minimum of 2 night stay. DISCHARGE PLAN Home Impression and plan of care have been directed as dictated by the signing physician. Jacinta Hernandez nurse practitioner acting as scribe for signing physician. Past Medical History Past Medical History: Asthma, Diabetes Mellitus, Fibromyalgia, GERD/Reflux, GI Bleed, Hyperlipidemia, Hypertension, Pneumonia, Sleep Apnea/CPAP/BIPAP Additional Past Medical History / Comment(s): Acute respiratory failure when she had bilateral pneumonia, chronic bronchitis, seasonal allergies, sinus problems, JUSTIN with CPap use, "Pre" diabetic, neuropathy R foot, heart murmur, MVR, past kidney stones with surgery, lower GI bleed, benign colon polyps, L knee bursitis, RLS, anemia, past foot fracture and bilateral wrist fractures, chronic fatigue, hypothyroid, UTIs. History of Any Multi-Drug Resistant Organisms: None Reported Past Surgical History: Heart Catheterization, Hysterectomy, Joint Replacement, Orthopedic Surgery, Tonsillectomy Additional Past Surgical History / Comment(s): Total R knee arthroplasty, laser surgery for kidney stones, L above eye cyst removed and cyst removed from back of head, R wrist fracture with surgery, colonoscopy/polypectomy, precancerous skin lesions removed, R foot bunionectomy. Past Anesthesia/Blood Transfusion Reactions: No Reported Reaction Past Psychological History: Depression Additional Psychological History / Comment(s): Pt resides alone. She has a cat. She has a nebulizer and a CPap. She owns a walker but does not need to use it. She drives. Smoking Status: Never smoker Past Alcohol Use History: Rare Additional Past Alcohol Use History / Comment(s): The patient is a lifelong nonsmoker, no marijuana or illicit drug use, alcohol use is rare. Patient does have a CPAP and nebulizer. No home oxygen. Past Drug Use History: None Reported - Past Family History Mother Family Medical History: CVA/TIA Additional Family Medical History / Comment(s): DUE TO STROKE AT THE AGE OF 86YRS. Brother(s) Family Medical History: Myocardial Infarction ([place]) Additional Family Medical History / Comment(s): ONE BROTHER OF A MS IN HIS EARLY 60S. OTHER BROTHER: "HEART PROBLEMS" Father Family Medical History: CVA/TIA Additional Family Medical History / Comment(s): FROM STROKE at 75 yrs. Daughter(s) Additional Family Medical History / Comment(s): The patient has 3 daughters. One is being evaluated for cancer, one has history of rheumatoid arthritis and one with no major medical problems. Patient does not have any sisters. Medications and Allergies Home Medications Medication Instructions Recorded Confirmed Type Cetirizine HCl [Zyrtec] 10 mg PO DAILY 03/12/16 12/25/20 History Ibuprofen [Motrin] 800 mg PO TID PRN 03/12/16 12/25/20 History Levothyroxine Sodium [Synthroid] 50 mcg PO DAILY 03/12/16 12/25/20 History Losartan [Cozaar] 50 mg PO HS 03/12/16 12/25/20 History Montelukast [Singulair] 10 mg PO HS 03/12/16 12/25/20 History Sertraline [Zoloft] 150 mg PO DAILY 03/12/16 12/25/20 History metFORMIN HCL ER [Glucophage XR] 500 mg PO BID 03/12/16 12/25/20 History Pravastatin Sodium [Pravachol] 20 mg PO HS 06/04/18 12/25/20 History Pregabalin [Lyrica] 100 mg PO BID 06/04/18 12/25/20 History amLODIPine [Norvasc] 5 mg PO BID 12/25/20 12/25/20 History Fluticasone Propion/Salmeterol 1 puff INHALATION RT-BID 12/26/20 12/26/20 History [Wixela 500-50 Inhub] Allergies Allergy/AdvReac Type Severity Reaction Status Date / Time cephalexin monohydrate Allergy Itching Verified 12/25/20 19:09 [From Keflex] codeine Allergy Hallucinati Verified 12/25/20 19:09 ons hydrocodone bitartrate Allergy Hallucinati Verified 12/25/20 19:09 [From Lortab] ons latex Allergy Rash/Hives Verified 12/25/20 19:09 Physical Exam Vitals: Vital Signs Temp Pulse Pulse Resp BP BP Pulse Ox 12/26/20 07:17 97.5 F L 65 17 121/74 93 L 12/26/20 00:37 97.8 F 62 16 159/84 97 12/25/20 23:54 97.8 F 64 20 165/70 96 12/25/20 20:00 60 20 130/77 98 12/25/20 18:00 58 L 20 163/68 97 12/25/20 16:32 63 18 128/74 99 12/25/20 14:40 98.0 F 64 18 134/77 98 Intake and Output 12/25/20 12/26/20 12/26/20 22:59 06:59 14:59 Intake Total 180 Balance 180 Intake: Oral 180 Other: Voiding Method Toilet # Voids 1 Weight 88.904 kg Results CBC & Chem 7: 12/26/20 05:43 12/26/20 05:43 Labs: Abnormal Lab Results - Last 24 Hours (Table) 12/25/20 12/26/20 Range/Units 16:29 05:43 RBC 4.05 L (4.10-5.20) X 10*6/uL Hgb 11.5 L (12.0-15.0) g/dL Hct 36.0 L (37.2-46.3) % MCHC 31.9 L (32.0-37.0) g/dL Immature Gran # 0.05 H (0.00-0.04) X 10*3/uL Eosinophils # 0.43 H (0.04-0.35) X 10*3/uL Chloride 109 H (98-107) mmol/L AST 46 H (14-36) U/L ALT 42 H (4-34) U/L Thrombosis Risk Factor Assmnt - Choose All That Apply Each Risk Factor Represents 2 Points: Age 61-74 years Other congenital or acquired thrombophilia - If yes, enter type in comment: No Thrombosis Risk Factor Assessment Total Risk Factor Score: 2 Thrombosis Risk Factor Assessment Level: Low Risk
[2020-12-26] MEDS: BACLOFEN 10 MG TAB PO PRN ×2 (14:44→20:54)
[2020-12-26 16:55] LABS: Chol/HDL Ratio 5.57 Ratio; HDL Cholesterol 34.5 mg/dL (40.00-60.00); LDL Cholesterol,Calculated 120.7 mg/dL (0.0-131.0); VLDL Calculation 36.8 mg/dL (5.00-40.00)
[2020-12-26 17:09] LABS: Glucose,Whole Blood 156 mg/dL (75-99)
[2020-12-26] MEDS: INSULIN ASPART (NovoLOG) 100 UNIT/ML VIAL SQ SCH ×2 (17:55→20:52)
[2020-12-26 20:02] LABS: Glucose,Whole Blood 145 mg/dL (75-99)
[2020-12-26 20:23] LABS: Folate, Serum 15.8 ng/mL (4.40-31.00)
[2020-12-26] MEDS: HEPARIN SODIUM,PORCINE/PF 5,000 UNIT/0.5 ML SYRINGE SQ SCH (20:54)
[2020-12-26] MEDS ORDERED: MONTELUKAST 10 MG TAB PO SCH (21:00)
[2020-12-26] MEDS ORDERED: LOSARTAN 50 MG TAB PO SCH (21:00)
[2020-12-26] MEDS ORDERED: PRAVASTATIN SODIUM 20 MG TAB PO SCH (21:00)
[2020-12-27] MEDS: LEVOTHYROXINE 50 MCG TAB PO SCH (06:08)
[2020-12-27] MEDS ORDERED: PANTOPRAZOLE 40 MG TABLET PO SCH (07:30)
[2020-12-27 07:41] LABS: Glucose,Whole Blood 146 mg/dL (75-99)
[2020-12-27 08:05] VITALS: BP 133/74; PULSE 62; RESP 18; TEMP 97.4
[2020-12-27] MEDS: CLOPIDOGREL 75 MG TAB PO SCH (08:19)
[2020-12-27] MEDS: amLODIPine 5 MG TAB PO SCH (08:19)
[2020-12-27] MEDS: PREGABALIN 100 MG CAP PO SCH (08:19)
[2020-12-27] MEDS: HEPARIN SODIUM,PORCINE/PF 5,000 UNIT/0.5 ML SYRINGE SQ SCH (08:20)
[2020-12-27] MEDS: LORATADINE 10 MG TAB PO SCH (08:20)
[2020-12-27] MEDS: ASPIRIN 81 MG PO SCH (08:20)
[2020-12-27] MEDS: SERTRALINE 50 MG TAB PO SCH (08:20)
[2020-12-27] MEDS: INSULIN ASPART (NovoLOG) 100 UNIT/ML VIAL SQ SCH (08:20)
--- NOTE | 2020-12-27 09:36 | P.DS ---
<Jacinta Hernandez A - Last Filed: 12/29/20 15:22> Providers Expected date of discharge: 12/27/20 Hospital Course: HISTORY OF PRESENT ILLNESS This is a 70-year-old female patient of Dr. Meier with past medical history of diabetes mellitus type 2, diabetic neuropathy, hypertension, hyperlipidemia, hypothyroidism, seasonal ALLERGIES, recurrent depression. Patient states that yesterday she had been doing work in the yard and developed back spasms below her shoulder blades and she went inside the house. She was feeling lightheaded and had trouble finding her words and stuttering, momentary nausea and she thought she was going to pass out. She felt like her shehad shifted on one side but this was not noted by family. Patient's daughter is working from home and called 911. Patient denies having any weakness in her extremities. She did have numbness to the right hand on the side of the fifth metacarpal. Patient does have chronic balance issues which she relates to having knee replacement done. Patient presented to the [facility] emergency center for evaluation. EKG was sinus rhythm CAT scan of the brain revealed mild age-related cerebral cortical volume loss. No acute intracranial abnormality. Correlate for possible acute left sphenoid sinusitis. CT angiogram of the head and neck revealed no significant stenosis and common or internal carotid arteries bilaterally. No significant stenosis or aneurysm of the [place]. 12/27: Patient has been seen by PT, OT, ST with no need for further intervention. Patient has been afebrile, heart rate is 62, blood pressure 133/74, pulse ox 93% on room air. Capillary blood glucose running 140s and 150s. Patient will be discharged home today in stable condition. ASSESSMENT AND PLAN 1. TIA with transient speech difficulty, lightheadedness and nausea. Continue aspirin 81 mg daily, Plavix 75 mg daily. Plan is for dual antiplatelet medication for 21 days and then stop aspirin and maintaining Plavix. 2. Diabetes mellitus type 2. 3. Diabetic neuropathy. 4. Hypertension. 5. Hyperlipidemia. 6. Hypothyroidism. 7. Seasonal ALLERGIES. 8. Recurrent depression. DISCHARGE PLAN Home Impression and plan of care have been directed as dictated by the signing physician. Jacinta Hernandez nurse practitioner acting as scribe for signing physician. Patient Condition at Discharge: Stable Plan - Discharge Summary Discharge Rx Participant: No New Discharge Prescriptions: New Atorvastatin [Lipitor] 40 mg PO DAILY #30 tablet Aspirin 81 mg PO DAILY #21 tab Clopidogrel [Plavix] 75 mg PO DAILY #30 tab Continue Cetirizine HCl [Zyrtec] 10 mg PO DAILY Sertraline [Zoloft] 150 mg PO DAILY Montelukast [Singulair] 10 mg PO HS Levothyroxine Sodium [Synthroid] 50 mcg PO DAILY metFORMIN HCL ER [Glucophage XR] 500 mg PO BID Losartan [Cozaar] 50 mg PO HS Pregabalin [Lyrica] 100 mg PO BID amLODIPine [Norvasc] 5 mg PO BID Fluticasone Propion/Salmeterol [Wixela 500-50 Inhub] 1 puff INHALATION RT-BID Discontinued Ibuprofen [Motrin] 800 mg PO TID PRN PRN Reason: Pain Pravastatin Sodium [Pravachol] 20 mg PO HS Discharge Medication List Cetirizine HCl [Zyrtec] 10 mg PO DAILY 03/12/16 [History] Levothyroxine Sodium [Synthroid] 50 mcg PO DAILY 03/12/16 [History] Losartan [Cozaar] 50 mg PO HS 03/12/16 [History] Montelukast [Singulair] 10 mg PO HS 03/12/16 [History] Sertraline [Zoloft] 150 mg PO DAILY 03/12/16 [History] metFORMIN HCL ER [Glucophage XR] 500 mg PO BID 03/12/16 [History] Pregabalin [Lyrica] 100 mg PO BID 06/04/18 [History] amLODIPine [Norvasc] 5 mg PO BID 12/25/20 [History] Fluticasone Propion/Salmeterol [Wixela 500-50 Inhub] 1 puff INHALATION RT-BID 12/26/20 [History] Aspirin 81 mg PO DAILY #21 tab 12/27/20 [Rx] Atorvastatin [Lipitor] 40 mg PO DAILY #30 tablet 12/27/20 [Rx] Clopidogrel [Plavix] 75 mg PO DAILY #30 tab 12/27/20 [Rx] Follow up Appointment(s)/Referral(s): Marty Sultana MD [REFERRING] - 1 Week (OFFICE WILL CALL YOU WITH APPOINTMENT DATE AND TIME.) Peter Meier MD [Primary Care Provider] - 1 Week (PLEASE CALL TO SCHEDULE APPOINTMENT, OFFICE NOT ABLE TO DO SO AT THE TIME OF YOUR DISCHARGE.) Patient Instructions/Handouts: Transient Ischemic Attack (DC), Restless Legs Syndrome (GEN) Discharge Disposition: HOME SELF-CARE <Kole Lawrence - Last Filed: 01/03/21 05:44> Providers Date of admission: 12/25/20 18:38 Attending physician: Kole Lawrence Consults: 12/25/20 18:38 Consult Physician Urgent Consulting Provider: Miguel Chong Consult Reason/Comments: possible tia Do you want consulting provider notified?: Yes Primary care physician: Peter Colvin Butler Hospital Course: Greater than 35 minutes was utilized and coordinating patient's discharge.
[2020-12-27] MEDS ORDERED: CYANOCOBALAMIN 1,000 MCG/ML 1 ML VIAL IM ONE (09:51)
--- NOTE | 2020-12-27 10:00 | ECHOF ---
Referral Reason:LVF MEASUREMENTS -------- HEIGHT: 167.6 cm WEIGHT: 88.9 kg BP: RVIDd: 2.6 cm (< 3.3) IVSd: 1.4 cm (0.6 - 1.1) LVIDd: 4.3 cm (3.9 - 5.3) LVPWd: 1.4 cm (0.6 - 1.1) IVSs: 2.1 cm LVIDs: 2.3 cm LVPWs: 2.3 cm LAESV Index (A-L): 17.36 ml/m Ao Diam: 2.7 cm (2.0 - 3.7) AV Cusp: 1.9 cm (1.5 - 2.6) LA Diam: 3.6 cm (2.7 - 3.8) MV EXCURSION: 8.980 mm (> 18.000) MV EF SLOPE: 49 mm/s (70 - 150) EPSS: 1.4 cm MV E Randal: 0.90 m/s MV DecT: 286 ms MV A Randal: 0.80 m/s MV E/A Ratio: 1.12 RAP: 5.00 mmHg RVSP: 16.65 mmHg FINDINGS -------- This was a technically adequate study. The left ventricular size is normal. There is moderate concentric left ventricular hypertrophy. O verall left ventricular systolic function is normal with, an EF between 55 - 60 %. The diastolic fi lling pattern is normal for the age of the patient 9.96. The right ventricle is normal in size. The left atrial size is normal. Normal LA size by volume 22+/-6 ml/m2. The right atrial size is normal. The aortic valve is trileaflet and appears structurally normal. The mitral valve is normal. Mild mitral regurgitation is present. The tricuspid valve appears structurally normal. Mild tricuspid regurgitation present. Right vent ricular systolic pressure is normal at < 35 mmHg. There is no pulmonic regurgitation present. The aortic root size is normal. Normal inferior vena cava with normal inspiratory collapse consistent with estimated right atrial pre ssure of 5 mmHg. There is no pericardial effusion. CONCLUSIONS -------- 1. The left ventricular size is normal. 2. There is moderate concentric left ventricular hypertrophy. 3. Overall left ventricular systolic function is normal with, an EF between 55 - 60 %. 4. The diastolic filling pattern is normal for the age of the patient 9.96 5. Mild mitral regurgitation is present. 6. Mild tricuspid regurgitation present. 7. There is no pericardial effusion. FINANCIAL INTERN: Cassie Weeks RDCS
--- NOTE | 2020-12-27 14:10 | P.PN ---
Subjective Progress Note Date: 12/27/20 Patient was seen for a follow-up. Patient states she feels foggy/spongy feeling in the head. She has been sleeping a lot. She slept all night long, but still feels very sleepy. This is likely from the side effect of baclofen that she received for back spasms. The back spasms now completely gone. Will discontinue baclofen. No new focal symptoms. No slurred speech or facial droop. Objective - Vital Signs Vital signs: Vital Signs Temp 97.4 F L 12/27/20 07:00 Pulse 62 12/27/20 07:00 Resp 18 12/27/20 07:00 BP 133/74 12/27/20 07:00 Pulse Ox 93 L 12/27/20 07:00 Intake & Output 12/26/20 12/27/20 12/27/20 18:59 06:59 18:59 Intake Total 1140 250 118 Balance 1140 250 118 Intake: Oral 1140 250 118 Other: Voiding Method Toilet Toilet # Voids 2 - Exam Patient is an elderly female, very pleasant, in no acute distress. Patient is alert awake oriented to time place and person. Speech and language functions are normal. Attention, concentration and fund of knowledge is adequate. On cranial examination, pupils are round and reacting to light, visual becerril are full on confrontation, with no neglect on double simultaneous stimulation. Her extraocular muscles are intact with no nystagmus. Face is symmetric, tongue protrudes to the midline. Palatal elevation and sensation normal, hearing and shoulder shrug normal, facial sensation normal. Shoulder shrug normal. On muscle strength testing, there is no pronator drift and the strength is normal in arms and legs distally and proximally. Deep tendon reflexes are 2 all over in the arms and legs except ankles which are 1+ bilaterally. Plantars downgoing. Sensory to touch is equal with no neglect. Cerebellar function showed no ataxia for [id number] testing. No dy sdiadochokinesia. Tone and bulk of muscles normal. Gait normal. Patient was walking slightly cautiously, but could be side effect of the baclofen.. On general examination, there is no carotid bruit or murmur, S1-S2 audible. Abdomen is soft nontender. Chest is clear. Peripheral pulses are present. No edema. - Labs CBC & Chem 7: 12/26/20 05:43 12/26/20 05:43 Labs: Abnormal Lab Results - Last 24 Hours (Table) 12/26/20 12/26/20 12/26/20 Range/Units 05:43 05:43 17:07 POC Glucose (mg/dL) 156 H (75-99) mg/dL Hemoglobin A1c 6.4 H (4.0-6.0) % Triglycerides 184.00 H (0.00-149.00) mg/dL HDL Cholesterol 34.50 L (40.00-60.00) mg/dL 12/26/20 12/27/20 Range/Units 20:01 07:40 POC Glucose (mg/dL) 145 H 146 H (75-99) mg/dL Hemoglobin A1c (4.0-6.0) % Triglycerides (0.00-149.00) mg/dL HDL Cholesterol (40.00-60.00) mg/dL Assessment and Plan Assessment: * TIA, manifesting with transient speech difficulty, lightheadedness, nausea and a subjective facial droopiness. Symptoms resolved in 10 minutes. Current neurological examination is nonfocal, NIH stroke scale 0. * Drowsiness, likely side effect of baclofen. * Mild B12 deficiency. * Hypertension * Hyperlipidemia * Diabetes * Restless leg syndrome * Strong family history of CVA. * Obesity Plan: * Patient has been on aspirin 81 mg daily for stroke prevention. We will add Plavix 75 mg daily. Patient will stay on dual antiplatelet medication for 21 days and then stop the aspirin and maintain on Plavix 75 mg daily. * May take Motrin 800 mg once a day for arthritis. * Patient underwent CTA of head and neck, which are normal. No stenosis, occlusion or aneurysm. * 2-D echo showed normal left ventricular size. Moderate concentric LVH, EF is between 55-60%. Mild MR. No embolic source. * Fasting lipid panel showed cholesterol 192, LDL 120, HDL 34 and triglycerides 184. Patient currently on Pravachol 20 mg. I would switch to Lipitor 40 mg, to target LDL <100. * No clinical indication for MRI, as his symptoms lasted only for 10 minutes and then went away. Her examination is normal. MRI had a extremely low yield, and will not change the overall management. Patient agreed. Discussed with primary team as well. * Hemoglobin A1c 6.4, which is well controlled. * Patient also has restless leg syndrome. Her TSH is normal. B12 is borderline 3002. Patient was given 1 B12 injection of 1000 g IM. From now she can take vitamin B12 1000 g sublingually daily. Folic acid normal 15.8. She may benefit from Requip if the symptoms persist. * Telemetry monitoring showed no arrhythmia. * Neurologically clear for discharge.
== END 2020-12-27 12:35 | disposition home or self-care (01) ==
LOC: EC 14:34 → 6NMEDSUR 18:38
PROVIDERS: ADMIT Internal Medicine Geriatric Medicine; ATTEND Internal Medicine Geriatric Medicine
DX: G45.9 Transient cerebral ischemic attack, unspecified (principal); E11.40 Type 2 diabetes mellitus with diabetic neuropathy, unspecified; I10 Essential (primary) hypertension; E78.5 Hyperlipidemia, unspecified; E03.9 Hypothyroidism, unspecified; Z20.822 Contact with and (suspected) exposure to COVID-19; E53.8 Deficiency of other specified B group vitamins; G47.33 Obstructive sleep apnea (adult) (pediatric); J45.909 Unspecified asthma, uncomplicated; F33.9 Major depressive disorder, recurrent, unspecified; I36.1 Nonrheumatic tricuspid (valve) insufficiency; K21.9 Gastro-esophageal reflux disease without esophagitis; D64.9 Anemia, unspecified; M62.830 Muscle spasm of back; E66.9 Obesity, unspecified; Z68.31 Body mass index [BMI] 31.0-31.9, adult; G25.81 Restless legs syndrome; M79.7 Fibromyalgia; M70.52 Other bursitis of knee, left knee; Z79.02 Long term (current) use of antithrombotics/antiplatelets; Z79.82 Long term (current) use of aspirin; Z79.84 Long term (current) use of oral hypoglycemic drugs; Z79.890 Hormone replacement therapy; Z79.899 Other long term (current) drug therapy; Z96.651 Presence of right artificial knee joint; Z90.710 Acquired absence of both cervix and uterus; Z87.442 Personal history of urinary calculi; Z87.19 Personal history of other diseases of the digestive system; Z91.040 Latex allergy status; Z88.5 Allergy status to narcotic agent; Z88.1 Allergy status to other antibiotic agents; Z87.01 Personal history of pneumonia (recurrent); Z87.81 Personal history of (healed) traumatic fracture; Z86.018 Personal history of other benign neoplasm; Z87.440 Personal history of urinary (tract) infections; Z86.010 Personal history of colon polyps; Z82.3 Family history of stroke; Z82.49 Family history of ischemic heart disease and other diseases of the circulatory system
CPT/HCPCS: 99285; 96372 ×2; 36415; 93005; 93306; 97161; 97165; 92523; 80061; 80053; 80048; 84443; 82607; 82746; 84484; 85025 ×2; 85610; 85730; 83036; 87635; 71046; 70496; 70450; 70498; G0378 ×3; J3420; Q9967; J1644 ×2

== ENCOUNTER 2021-01-04 17:38 | Emergency (ER) | payer MEDICARE ==
[2021-01-04 18:54] VITALS: TEMP 97.7
--- NOTE | 2021-01-04 19:42 | CT ---
EXAMINATION TYPE: CT brain viktoria rivera DATE OF EXAM: 01/04/2021 COMPARISON: 12/25/2020 HISTORY: Fall, on thinners, LT eye bruising CT DLP: 1475.7 mGycm Automated exposure control for dose reduction was used. TECHNIQUE: CT scan of the head and cervical spine are performed without contrast. FINDINGS: There is no acute intracranial hemorrhage, mass effect, or midline shift identified. The ventricles and sulci are within normal limits in size. The globes are intact and the visualized sin uses are clear. Cervical spine is visualized in its entirety from C1 through upper thoracic levels and demonstrates s atisfactory alignment without evidence of acute fracture or dislocation. Moderate multilevel cervical spondylosis changes noted. Prevertebral soft tissue appears within normal limits. The C1-C2 articul ation is unremarkable. IMPRESSION: 1. There is no acute fracture or dislocation evident in the cervical spine. 2. No acute intracranial hemorrhage, mass effect, or midline shift is seen.
[2021-01-04] MEDS ORDERED: ACETAMINOPHEN TAB 500 MG TAB PO STA (20:30)
--- NOTE | 2021-01-04 20:44 | ED ---
General Adult HPI - General Chief complaint: Head Injury Stated complaint: Fall, facial injury, arm, hand, knee,blood thinner Time Seen by Provider: 01/04/21 20:12 Source: patient Mode of arrival: wheelchair Limitations: no limitations - History of Present Illness Initial comments: Dictation was produced using [employer] dictation software. please excuse any grammatical, word or spelling errors. Chief Complaint: 70-year-old male presents after head injury History of Present Illness: 70-year-old female earlier this afternoon approxima te 4 hours ago she was going to check the mail box. She encountered a bunch of leaves. She did not see that there was a curved underneath the leads. She tripped and fell and struck her head on a nonmoving object. Patient takes Plavix. Her head. Patient states she has mild headache. She noted some bruising around her left eye. While in the emergency department waiting to be seen daughter noted that patient was having word finding difficulties. Daughter reports that patient was recently admitted to the hospital for strokelike symptoms. Diagnosed with TIA with transient speech difficulty lightheadedness and nausea. She was started on 2 antiplatelet therapy for 21 days. During that workup patient underwent CTA which was found to be normal. She had an echocardiogram performed. She is admitted to the hospital for 2 days. Echo cardiac exam was normal. Patient did not meet clinical criteria for MRI according to neurology progress note. The ROS documented in this emergency department record has been reviewed and confirmed by me. Those systems with pertinent positive or negative responses have been documented in the HPI. All other systems are other negative and/or noncontributory. PHYSICAL EXAM: General Impression: Alert and oriented x3, not in acute distress HEENT: Ecchymoses around the left periorbital area, 2 cm laceration over the left forehead extra-ocular movements intact, pupils equal and reactive to light bilaterally, mucous membranes moist. Cardiovascular: Heart regular rate and rhythm Chest: Able to complete full sentences, no retractions, no tachypnea Abdomen: abdomen soft, non-tender, non-distended, no organomegaly Musculoskeletal: Pulses present and equal in all extremities, no peripheral edema, bruising over the left forearm and left knee, with also a left knee abrasion Motor: no focal deficits noted Neurological: CN II-XII grossly intact, no focal motor or sensory deficits noted Skin: Intact with no visualized rashes Psych: Normal affect and mood ED course: 70-year-old female presents to the emergency department after fall. Patient was recently in the hospital for concerns of TIA. She was evaluated by neurology and had a stroke workup. As upon arrival are within acceptable limits. Laceration over the left forehead was repaired using 6-0 nylon. Computed tomography scan of the brain and C-spine is unremarkable. Patient requested 1 g of Tylenol. She is exhibiting some signs of concussion given that she fell hit her head and began having symptoms of headache, which she describes as word finding difficulties. Patient is not dysarthric at the bedside. She is not aphasic. She has no strokelike symptoms or signs. Patient reports that she has up-to-date tetanus. Left forearm and left knee x- rays unremarkable. Patient observed in the emergency department for several hours. Patient having symptoms of concussion. She'll be discharge with daughter who will stay with her tonight. Return precautions discussed. - Related Data Home Medications Medication Instructions Recorded Confirmed Cetirizine HCl [Zyrtec] 10 mg PO DAILY 03/12/16 12/25/20 Levothyroxine Sodium [Synthroid] 50 mcg PO DAILY 03/12/16 12/25/20 Losartan [Cozaar] 50 mg PO HS 03/12/16 12/25/20 Montelukast [Singulair] 10 mg PO HS 03/12/16 12/25/20 Sertraline [Zoloft] 150 mg PO DAILY 03/12/16 12/25/20 metFORMIN HCL ER [Glucophage XR] 500 mg PO BID 03/12/16 12/25/20 Pregabalin [Lyrica] 100 mg PO BID 06/04/18 12/25/20 amLODIPine [Norvasc] 5 mg PO BID 12/25/20 12/25/20 Fluticasone Propion/Salmeterol 1 puff INHALATION RT-BID 12/26/20 12/26/20 [Wixela 500-50 Inhub] Previous Rx's Medication Instructions Recorded Aspirin 81 mg PO DAILY #21 tab 12/27/20 Atorvastatin [Lipitor] 40 mg PO DAILY #30 tablet 12/27/20 Clopidogrel [Plavix] 75 mg PO DAILY #30 tab 12/27/20 Allergies Allergy/AdvReac Type Severity Reaction Status Date / Time cephalexin monohydrate Allergy Itching Verified 01/04/21 18:51 [From Keflex] codeine Allergy Hallucinati Verified 01/04/21 18:51 ons hydrocodone bitartrate Allergy Hallucinati Verified 01/04/21 18:51 [From Lortab] ons latex Allergy Rash/Hives Verified 01/04/21 18:51 Review of Systems ROS Statement: Those systems with pertinent positive or pertinent negative responses have been documented in the HPI. ROS Other: All systems not noted in ROS Statement are negative. Past Medical History Past Medical History: Asthma, Diabetes Mellitus, Fibromyalgia, GERD/Reflux, GI Bleed, Hyperlipidemia, Hypertension, Pneumonia, Sleep Apnea/CPAP/BIPAP Additional Past Medical History / Comment(s): Acute respiratory failure when she had bilateral pneumonia, chronic bronchitis, seasonal allergies, sinus problems, JUSTIN with CPap use, "Pre" diabetic, neuropathy R foot, heart murmur, MVR, past kidney stones with surgery, lower GI bleed, benign colon polyps, L knee bursitis, RLS, anemia, past foot fracture and bilateral wrist fractures, chronic fatigue, hypothyroid, UTIs. History of Any Multi-Drug Resistant Organisms: None Reported Past Surgical History: Heart Catheterization, Hysterectomy, Joint Replacement, Orthopedic Surgery, Tonsillectomy Additional Past Surgical History / Comment(s): Total R knee arthroplasty, laser surgery for kidney stones, L above eye cyst removed and cyst removed from back of head, R wrist fracture with surgery, colonoscopy/polypectomy, precancerous skin lesions removed, R foot bunionectomy. Past Anesthesia/Blood Transfusion Reactions: No Reported Reaction Past Psychological History: Depression Smoking Status: Never smoker Past Alcohol Use History: Rare Past Drug Use History: None Reported - Past Family History Mother Family Medical History: CVA/TIA Additional Family Medical History / Comment(s): DUE TO STROKE AT THE AGE OF 86YRS. Brother(s) Family Medical History: Myocardial Infarction (ME) Additional Family Medical History / Comment(s): ONE BROTHER OF A ME IN HIS EARLY 60S. OTHER BROTHER: "HEART PROBLEMS" Father Family Medical History: CVA/TIA Additional Family Medical History / Comment(s): FROM STROKE at 75 yrs. Daughter(s) Additional Family Medical History / Comment(s): The patient has 3 daughters. One is being evaluated for cancer, one has history of rheumatoid arthritis and one with no major medical problems. Patient does not have any sisters. General Exam Limitations: no limitations Course Vital Signs 01/04/21 01/04/21 18:51 22:36 Temperature 97.7 F Pulse Rate 68 72 Respiratory 20 17 Rate Blood Pressure 159/84 144/72 O2 Sat by Pulse 94 L 97 Oximetry Procedures - Laceration Laceration #1 Consent Obtained: verbal consent Indication: laceration Site: face Description: linear Depth: simple, single layer Anesthetic Used: lidocaine 1%, with epi Anesthesia Technique: local infiltration Type of Sutures: nylon Size of Sutures: 6-0 Technique: simple, interrupted Patient Tolerated Procedure: well (3 stitches, left forehead, 2 cm) Disposition Clinical Impression: Closed head injury Disposition: HOME SELF-CARE Instructions (If sedation given, give patient instructions): Concussion (ED), Fall Prevention (ED) Is patient prescribed a controlled substance at d/c from ED?: No Referrals: Peter Meier MD [Primary Care Provider] - 1-2 days
--- NOTE | 2021-01-04 21:01 | XR ---
PROCEDURE: XR knee limited LT - 2V DATE AND TIME: 01/04/2021 8:51 PM CLINICAL INDICATION: Pain; fall TECHNIQUE: AP and crosstable lateral COMPARISON: None FINDINGS: There is no fracture or malalignment. Prominent medial compartment osteoarthrosis changes. The soft tissues are unremarkable. IMPRESSION: NO ACUTE PROCESS.
--- NOTE | 2021-01-04 21:02 | XR ---
PROCEDURE: XR forearm LT - 3V DATE AND TIME: 01/04/2021 8:51 PM CLINICAL INDICATION: Pain; fall TECHNIQUE: Department protocol COMPARISON: None FINDINGS: There is no fracture or malalignment. Prominent multifocal osteoarthrosis changes noted. Th e soft tissues are unremarkable. IMPRESSION: NO ACUTE PROCESS.
[2021-01-04 22:38] VITALS: BP 144/72; PULSE 72; RESP 17
== END 2021-01-04 22:20 | disposition home or self-care (01) ==
LOC: EC 17:38
DX: S01.81XA Laceration without foreign body of other part of head, initial encounter (principal); E11.9 Type 2 diabetes mellitus without complications; K21.9 Gastro-esophageal reflux disease without esophagitis; E78.5 Hyperlipidemia, unspecified; I10 Essential (primary) hypertension; E03.9 Hypothyroidism, unspecified; F32.A Depression, unspecified; M79.7 Fibromyalgia; J45.909 Unspecified asthma, uncomplicated; Z79.02 Long term (current) use of antithrombotics/antiplatelets; Z86.73 Personal history of transient ischemic attack (TIA), and cerebral infarction without residual deficits; Z79.84 Long term (current) use of oral hypoglycemic drugs; Z88.1 Allergy status to other antibiotic agents; Z88.5 Allergy status to narcotic agent; Z91.040 Latex allergy status; Z87.442 Personal history of urinary calculi; Z87.440 Personal history of urinary (tract) infections; Z90.710 Acquired absence of both cervix and uterus; Z90.89 Acquired absence of other organs; Z96.651 Presence of right artificial knee joint; Z79.82 Long term (current) use of aspirin; W01.10XA Fall on same level from slipping, tripping and stumbling with subsequent striking against unspecified object, initial encounter
CPT/HCPCS: 12011; 70450; 72125; 99284

== ENCOUNTER 2022-02-25 23:50 | Emergency (ER) | payer MEDICARE ==
[2022-02-26 00:04] VITALS: RESP 16; TEMP 97.4
[2022-02-26] MEDS ORDERED: SODIUM CHLORIDE 0.9% 1,000 ML IV STA (00:10)
--- NOTE | 2022-02-26 00:11 | ED ---
Abdominal Pain HPI - General Chief Complaint: Abdominal Pain Stated Complaint: NDV, UTI Source: patient, RN notes reviewed, old records reviewed Mode of arrival: ambulatory Limitations: no limitations - History of Present Illness Initial Comments: This is a 72-year-old female to the emergency department for evaluation patient didn't with multiple recent urinary tract infections bladder infections with recurrent antibiotics. Patient having cramping cramping in her abdomen cramping in her back positive nausea but no fever no vomiting. Patient still has dysuria especially recently. MD Complaint: abdominal pain, flank pain -: days(s) Location: epigastric, suprapubic Radiation: epigastric, suprapubic Severity: moderate Severity scale (1-10): 4 Quality: fullness, dull Consistency: intermittent Improves With: eating Worsens With: nothing Context: possible food poisoning, recent antibiotic use Associated Symptoms: nausea, vomiting, dysuria Treatments Prior to Arrival: other (0) - Related Data Home Medications Medication Instructions Recorded Confirmed Cetirizine HCl [Zyrtec] 10 mg PO DAILY 03/12/16 12/25/20 Levothyroxine Sodium [Synthroid] 50 mcg PO DAILY 03/12/16 12/25/20 Losartan [Cozaar] 50 mg PO HS 03/12/16 12/25/20 Montelukast [Singulair] 10 mg PO HS 03/12/16 12/25/20 Sertraline [Zoloft] 150 mg PO DAILY 03/12/16 12/25/20 metFORMIN HCL ER [Glucophage XR] 500 mg PO BID 03/12/16 12/25/20 Pregabalin [Lyrica] 100 mg PO BID 06/04/18 12/25/20 amLODIPine [Norvasc] 5 mg PO BID 12/25/20 12/25/20 Fluticasone Propion/Salmeterol 1 puff INHALATION RT-BID 12/26/20 12/26/20 [Wixela 500-50 Inhub] Previous Rx's Medication Instructions Recorded Aspirin 81 mg PO DAILY #21 tab 12/27/20 Atorvastatin [Lipitor] 40 mg PO DAILY #30 tablet 12/27/20 Clopidogrel [Plavix] 75 mg PO DAILY #30 tab 12/27/20 Allergies Allergy/AdvReac Type Severity Reaction Status Date / Time cephalexin monohydrate Allergy Itching Verified 02/26/22 00:04 [From Keflex] codeine Allergy Hallucinati Verified 02/26/22 00:04 ons hydrocodone bitartrate Allergy Hallucinati Verified 02/26/22 00:04 [From Lortab] ons latex Allergy Rash/Hives Verified 02/26/22 00:04 Review of Systems ROS Statement: Those systems with pertinent positive or pertinent negative responses have been documented in the HPI. ROS Other: All systems not noted in ROS Statement are negative. Past Medical History Past Medical History: Asthma, Diabetes Mellitus, Fibromyalgia, GERD/Reflux, GI Bleed, Hyperlipidemia, Hypertension, Pneumonia, Sleep Apnea/CPAP/BIPAP Additional Past Medical History / Comment(s): Acute respiratory failure when she had bilateral pneumonia, chronic bronchitis, seasonal allergies, sinus problems, JUSTIN with CPap use, "Pre" diabetic, neuropathy R foot, heart murmur, MVR, past kidney stones with surgery, lower GI bleed, benign colon polyps, L knee bursitis, RLS, anemia, past foot fracture and bilateral wrist fractures, chronic fatigue, hypothyroid, UTIs. History of Any Multi-Drug Resistant Organisms: None Reported Past Surgical History: Heart Catheterization, Hysterectomy, Joint Replacement, Orthopedic Surgery, Tonsillectomy Additional Past Surgical History / Comment(s): Total R knee arthroplasty, laser surgery for kidney stones, L above eye cyst removed and cyst removed from back of head, R wrist fracture with surgery, colonoscopy/polypectomy, precancerous skin lesions removed, R foot bunionectomy. Past Anesthesia/Blood Transfusion Reactions: No Reported Reaction Past Psychological History: Depression Smoking Status: Never smoker Past Alcohol Use History: Rare Past Drug Use History: None Reported - Past Family History Mother Family Medical History: CVA/TIA Additional Family Medical History / Comment(s): DUE TO STROKE AT THE AGE OF 86YRS. Brother(s) Family Medical History: Myocardial Infarction (AL) Additional Family Medical History / Comment(s): ONE BROTHER OF A AL IN HIS EARLY 60S. OTHER BROTHER: "HEART PROBLEMS" Father Family Medical History: CVA/TIA Additional Family Medical History / Comment(s): FROM STROKE at 75 yrs. Daughter(s) Additional Family Medical History / Comment(s): The patient has 3 daughters. One is being evaluated for cancer, one has history of rheumatoid arthritis and one with no major medical problems. Patient does not have any sisters. General Exam Limitations: no limitations General appearance: alert, in no apparent distress Head exam: Present: atraumatic, normocephalic, normal inspection Eye exam: Present: normal appearance, PERRL, EOMI. Absent: scleral icterus, conjunctival injection, periorbital swelling ENT exam: Present: normal exam, mucous membranes moist Neck exam: Present: normal inspection. Absent: tenderness, meningismus, lymphadenopathy Respiratory exam: Present: normal lung sounds bilaterally. Absent: respiratory distress, wheezes, rales, rhonchi, stridor Cardiovascular Exam: Present: regular rate, normal rhythm, normal heart sounds. Absent: systolic murmur, diastolic murmur, rubs, gallop, clicks GI/Abdominal exam: Present: soft, normal bowel sounds. Absent: distended, tenderness, guarding, rebound, rigid Extremities exam: Present: normal inspection, full ROM, normal capillary refill. Absent: tenderness, pedal edema, joint swelling, calf tenderness Back exam: Present: normal inspection Neurological exam: Present: alert, oriented X3, CN II-XII intact Psychiatric exam: Present: normal affect, normal mood Skin exam: Present: warm, dry, intact, normal color. Absent: rash Course Vital Signs 02/26/22 02/26/22 00:00 02:18 Temperature 97.4 F L Pulse Rate 93 70 Respiratory 16 16 Rate Blood Pressure 148/85 144/85 O2 Sat by Pulse 95 97 Oximetry - Reevaluation(s) Reevaluation #1: 02/26/22 Records reviewed Reevaluation #2: 02/26/22 patient symptoms are improved here in the ER Reevaluation #3: 02/26/22 Patient informed results and questions answered Reevaluation #4: 02/26/22 Differential Abdominal Pain Women: Appendicitis, Cholecystitis, diverticulosis, ischemic bowel, pancreatitis, hepatitis, UTI, gastroenteritis, AAA, incarcerated hernia, bowel obstruction, constipation, inflammatory bowel, hepatitis, peptic ulcer disease, splenic infarction, perforated viscus, vulvitis, ovarian torsion, PID, kidney stone, placenta abruption, this is not meant to be an all-inclusive list Reevaluation #5: 02/26/22 Was pt. sent in by a medical professional or institution? @ -no Did you speak to anyone other than the patient for history? @ -no Did you review nursing and triage notes? @ -agree Were old charts reviewed? @ -no Differential Diagnosis? @ -no EKG interpreted by me (3pts min.)? @ -[none] X-rays interpreted by me (1pt min.)? @ -[none] CT interpreted by me (1pt min.)? @ -[none] U/S interpreted by me (1pt. min.)? @ -no What testing was considered but not performed? (CT, X-rays, U/S, labs)? Why? @ no meds were considered but not given? Why? @ -[none] Did you discuss the management of the patient with other professionals? @ -no Did you reconcile home meds? @ -[none] Was smoking cessation discussed for >3mins.? @ -[none] Was critical care preformed (if so, how long)? @ -[none] Were there social determinants of health that impacted care today? How? (Homelessness, low income, unemployed, alcoholism, drug addiction, transportat ion, low edu. Level, literacy, decrease access to med. care, penitentiary, rehab)? @ -no Was there de-escalation of care discussed even if they declined? (Discuss DNR or withdrawal of care, Hospice)? @ -no What co-morbidities impacted this encounter? (DM, HTN, Smoking, COPD, CAD, Cancer, CVA, Hep., AIDS, mental health diagnosis, sleep apnea, morbid obesity)? @ -no Was patient admitted / discharged? @ -dc Undiagnosed new problem with uncertain prognosis? @ -[none] Drug Therapy requiring intensive monitoring for toxicity (Heparin, Nitro, Insulin, Cardizem)? @ -[none] Were any procedures done? @ -[none] Diagnosis/symptom? @ -[default] Acute, or Chronic, or Acute on Chronic? @ -[default] Uncomplicated (without systemic symptoms) or Complicated (systemic symptoms)? @ -[default] Side effects of treatment? @ -[none] Exacerbation, Progression, or Severe Exacerbation] @ -[no] Poses a threat to life or bodily function? @ -[no] 03/06/22 06:04 Medical Decision Making - Medical Decision Making 72 female with nausea vomiting diarrhea wishes UTI, no UTI found here in the ER patient given symptomatic therapy we'll discontinue on antibiotics and can be discharged home - Lab Data Result diagrams: 02/26/22 00:45 02/26/22 00:45 Lab Results 02/26/22 02/26/22 02/26/22 Range/Units 00:05 00:45 00:45 WBC 13.3 H (3.8-10.6) k/uL RBC 4.67 (3.80-5.40) m/uL Hgb 13.3 (11.4-16.0) gm/dL Hct 39.9 (34.0-46.0) % MCV 85.6 (80.0-100.0) fL MCH 28.6 (25.0-35.0) pg MCHC 33.4 (31.0-37.0) g/dL RDW 15.0 (11.5-15.5) % Plt Count 299 (150-450) k/uL MPV 7.2 Neutrophils % 64 % Lymphocytes % 25 % Monocytes % 6 % Eosinophils % 2 % Basophils % 1 % Neutrophils # 8.6 H (1.3-7.7) k/uL Lymphocytes # 3.4 (1.0-4.8) k/uL Monocytes # 0.8 (0-1.0) k/uL Eosinophils # 0.3 (0-0.7) k/uL Basophils # 0.1 (0-0.2) k/uL Sodium 141 (137-145) mmol/L Potassium 3.2 L (3.5-5.1) mmol/L Chloride 106 (98-107) mmol/L Carbon Dioxide 27 (22-30) mmol/L Anion Gap 8 mmol/L BUN 18 H (7-17) mg/dL Creatinine 0.68 (0.52-1.04) mg/dL Est GFR (CKD-EPI)AfAm >90 (>60 ml/min/1.73 sqM) Est GFR (CKD-EPI)NonAf 86 (>60 ml/min/1.73 sqM) Glucose 190 H (74-99) mg/dL Plasma Lactic Acid Dmitriy (0.7-2.0) mmol/L Calcium 9.1 (8.4-10.2) mg/dL Total Bilirubin 0.3 (0.2-1.3) mg/dL AST 52 H (14-36) U/L ALT 63 H (4-34) U/L Alkaline Phosphatase 125 (38-126) U/L Total Protein 6.6 (6.3-8.2) g/dL Albumin 4.1 (3.5-5.0) g/dL Amylase 51 (30-110) U/L Lipase 307 H (23-300) U/L Urine Color Light Yellow Urine Appearance Clear (Clear) Urine pH 6.5 (5.0-8.0) Ur Specific Cheney 1.007 (1.001-1.035) Urine Protein Negative (Negative) Urine Glucose (UA) Negative (Negative) Urine Ketones Negative (Negative) Urine Blood Negative (Negative) Urine Nitrite Negative (Negative) Urine Bilirubin Negative (Negative) Urine Urobilinogen <2.0 (<2.0) mg/dL Ur Leukocyte Esterase Large H (Negative) Urine RBC 2 (0-5) /hpf Urine WBC 2 (0-5) /hpf Ur Squamous Epith Cells 1 (0-4) /hpf Hyaline Casts 1 (0-2) /lpf Urine Mucus Rare H (None) /hpf 02/26/22 Range/Units 00:45 WBC (3.8-10.6) k/uL RBC (3.80-5.40) m/uL Hgb (11.4-16.0) gm/dL Hct (34.0-46.0) % MCV (80.0-100.0) fL MCH (25.0-35.0) pg MCHC (31.0-37.0) g/dL RDW (11.5-15.5) % Plt Count (150-450) k/uL MPV Neutrophils % % Lymphocytes % % Monocytes % % Eosinophils % % Basophils % % Neutrophils # (1.3-7.7) k/uL Lymphocytes # (1.0-4.8) k/uL Monocytes # (0-1.0) k/uL Eosinophils # (0-0.7) k/uL Basophils # (0-0.2) k/uL Sodium (137-145) mmol/L Potassium (3.5-5.1) mmol/L Chloride (98-107) mmol/L Carbon Dioxide (22-30) mmol/L Anion Gap mmol/L BUN (7-17) mg/dL Creatinine (0.52-1.04) mg/dL Est GFR (CKD-EPI)AfAm (>60 ml/min/1.73 sqM) Est GFR (CKD-EPI)NonAf (>60 ml/min/1.73 sqM) Glucose (74-99) mg/dL Plasma Lactic Acid Dmitriy 1.5 (0.7-2.0) mmol/L Calcium (8.4-10.2) mg/dL Total Bilirubin (0.2-1.3) mg/dL AST (14-36) U/L ALT (4-34) U/L Alkaline Phosphatase (38-126) U/L Total Protein (6.3-8.2) g/dL Albumin (3.5-5.0) g/dL Amylase (30-110) U/L Lipase (23-300) U/L Urine Color Urine Appearance (Clear) Urine pH (5.0-8.0) Ur Specific Cheney (1.001-1.035) Urine Protein (Negative) Urine Glucose (UA) (Negative) Urine Ketones (Negative) Urine Blood (Negative) Urine Nitrite (Negative) Urine Bilirubin (Negative) Urine Urobilinogen (<2.0) mg/dL Ur Leukocyte Esterase (Negative) Urine RBC (0-5) /hpf Urine WBC (0-5) /hpf Ur Squamous Epith Cells (0-4) /hpf Hyaline Casts (0-2) /lpf Urine Mucus (None) /hpf - Radiology Data Radiology results: report reviewed (CT head and pelvis negative for acute disease), image reviewed Disposition Clinical Impression: Abdominal colic, Abdominal pain Disposition: HOME SELF-CARE Condition: Good Instructions (If sedation given, give patient instructions): Abdominal Pain (ED) Is patient prescribed a controlled substance at d/c from ED?: No Referrals: Peter Meier MD [Primary Care Provider] - 1-2 days Time of Disposition: 02:01
[2022-02-26 01:05] LABS: Basophils # (A) 0.1 k/uL (0-0.2); Basophils % (A) 1 %; Eosinophils # (A) 0.3 k/uL (0-0.7); Eosinophils % (A) 2 %; HCT 39.9 % (34.0-46.0); HGB 13.3 gm/dL (11.4-16.0); Lymphocytes # (A) 3.4 k/uL (1.0-4.8); Lymphocytes % (A) 25 %; MCH 28.6 pg (25.0-35.0); MCHC 33.4 g/dL (31.0-37.0); MCV 85.6 fL (80.0-100.0); Mean Platelet Volume 7.2; Monocytes # (A) 0.8 k/uL (0-1.0); Monocytes % (A) 6 %; Neutrophils # (A) 8.6 k/uL (1.3-7.7); Neutrophils % (A) 64 %; Platelet Count 299 k/uL (150-450); RBC 4.67 m/uL (3.80-5.40); WBC 13.3 k/uL (3.8-10.6)
--- NOTE | 2022-02-26 01:13 | CT ---
EXAMINATION TYPE: CT abdomen pelvis wo con DATE OF EXAM: 02/26/2022 COMPARISON: None HISTORY: Abdominal pain CT DLP: 816.9 mGycm Automated exposure control for dose reduction was used. Images obtained from the diaphragm to the floor the pelvis with no contrast. The lung bases are clear. No pleural effusion. Heart size is normal. No pericardial effusion. Liver spleen and stomach pancreas and gallbladder appear intact. The bile duct are not dilated. There is a single 3 mm calcified gallstone. There is no adrenal mass. Kidneys show normal size and contour. No hydronephrosis. Ureters are not di lated. No retroperitoneal adenopathy. There are small left-sided renal calculi up to 3 mm. Appendix i s lateral and appears normal. Bladder distends smoothly. No inguinal hernia. No free fluid in the pel vis. There are multiple sigmoid diverticula. No diverticulitis. There is no mesenteric edema. No ascites or free air. No signs of bowel obstruction. The lumbar verte bra show normal alignment. There is degenerative disc space narrowing and vacuum disks throughout the lumbar spine. No compression fracture. There is small hiatal hernia. IMPRESSION: There is sigmoid diverticulosis without diverticulitis. Nonobstructing left renal calculi. Normal mehnaz endix. Single small calcified gallstone.
[2022-02-26 01:21] LABS: ALT 63 U/L (4-34); AST 52 U/L (14-36); African American GFR (CKD) >90 (>60 ml/min/1.73 sqM); Albumin 4.1 g/dL (3.5-5.0); Alkaline Phosphatase 125 U/L (38-126); Amylase 51 U/L (30-110); Anion Gap 8 mmol/L; Blood Urea Nitrogen 18 mg/dL (7-17); Calcium 9.1 mg/dL (8.4-10.2); Carbon Dioxide 27 mmol/L (22-30); Chloride 106 mmol/L (98-107); Glucose 190 mg/dL (74-99); Lipase 307 U/L (23-300); Non-African American GFR(CKD) 86 (>60 ml/min/1.73 sqM); Potassium 3.2 mmol/L (3.5-5.1); Sodium 141 mmol/L (137-145); Total Bilirubin 0.3 mg/dL (0.2-1.3); Total Protein 6.6 g/dL (6.3-8.2)
[2022-02-26 01:58] LABS: Appearance,Urine Clear (Clear); Bilirubin,Urine Negative (Negative); Blood,Urine Negative (Negative); Color,Urine Light Yellow; Glucose,Urine (UA) Negative (Negative); Hyaline Casts,Urine 1 /lpf (0-2); Ketones,Urine Negative (Negative); Leukocyte Esterase,Urine Large (Negative); Mucus,Urine Rare /hpf; Nitrite,Urine Negative (Negative); PH, Urine 6.5 (5.0-8.0); Protein,Urine Negative (Negative); RBC,Urine 2 /hpf (0-5); Specific Gravity,Urine 1.007 (1.001-1.035); Squamous Epithelial Cell,Urine 1 /hpf (0-4); Urobilinogen,Urine <2.0 mg/dL (<2.0); WBC,Urine 2 /hpf (0-5)
[2022-02-26 03:40] VITALS: BP 144/85; PULSE 70
== END 2022-02-26 02:18 | disposition home or self-care (01) ==
LOC: EC 23:50
DX: R10.84 Generalized abdominal pain (principal); K80.20 Calculus of gallbladder without cholecystitis without obstruction; K44.9 Diaphragmatic hernia without obstruction or gangrene; K57.30 Diverticulosis of large intestine without perforation or abscess without bleeding; M48.061 Spinal stenosis, lumbar region without neurogenic claudication; N20.0 Calculus of kidney; J45.909 Unspecified asthma, uncomplicated; E03.9 Hypothyroidism, unspecified; E11.9 Type 2 diabetes mellitus without complications; I10 Essential (primary) hypertension; G47.30 Sleep apnea, unspecified; F32.A Depression, unspecified; Z91.040 Latex allergy status; Z88.1 Allergy status to other antibiotic agents; Z88.5 Allergy status to narcotic agent; Z79.890 Hormone replacement therapy; Z79.84 Long term (current) use of oral hypoglycemic drugs; Z79.899 Other long term (current) drug therapy
CPT/HCPCS: 36415; 74176; 80053; 81001; 82150; 83605; 83690; 85025; 99284

== ENCOUNTER 2023-06-26 16:31 | Emergency (ER) | payer MEDICARE ==
[2023-06-26 17:18] VITALS: TEMP 99.4
--- NOTE | 2023-06-26 17:39 | XR ---
EXAMINATION TYPE: XR chest 2V DATE OF EXAM: 06/26/2023 COMPARISON: 12/25/2020 HISTORY: Right shoulder pain TECHNIQUE: Frontal and lateral views of the chest are obtained. FINDINGS: There is no focal air space opacity, pleural effusion, or pneumothorax seen. The cardiac silhouette size is within normal limits. The osseous structures are intact. IMPRESSION: No acute cardiopulmonary process.
--- NOTE | 2023-06-26 17:40 | XR ---
Right shoulder HISTORY: Pain COMPARISON: None. TECHNIQUE: 3 views right shoulder were obtained. FINDINGS: There is no fracture, dislocation, intraosseous or intra-articular abnormality. The soft tissues are normal. IMPRESSION: No significant abnormality seen.
--- NOTE | 2023-06-26 17:44 | ED ---
Upper Extremity HPI - General Chief Complaint: Extremity Injury, Upper Stated Complaint: R jaw/shoulder pain Time Seen by Provider: 06/26/23 16:51 Source: patient, family, RN notes reviewed Mode of arrival: wheelchair Limitations: no limitations - History of Present Illness Initial Comments: 73-year-old female with history of atrial flutter and TIA presenting with right shoulder pain since this morning. States the pain is sharp and describes intermittent "shock-like" pains that shoot down her right arm. States her right shoulder is very tender and the pain radiates into her right jaw. States the pain is worse with deep inspiration and with movement of her arm. Denies trauma or injury but states she was gardening yesterday. He has not taken anything for pain. Denies chest pain, cough. She is on 2 blood thinners. - Related Data Home Medications Medication Instructions Recorded Confirmed Levothyroxine Sodium [Synthroid] 50 mcg PO DAILY 03/12/16 06/26/23 Losartan [Cozaar] 50 mg PO HS 03/12/16 06/26/23 Montelukast [Singulair] 10 mg PO HS 03/12/16 06/26/23 Sertraline [Zoloft] 150 mg PO DAILY 03/12/16 06/26/23 metFORMIN HCL ER [Glucophage XR] 500 mg PO DAILY 03/12/16 06/26/23 Pregabalin [Lyrica] 100 mg PO BID 06/04/18 06/26/23 amLODIPine [Norvasc] 5 mg PO BID 12/25/20 06/26/23 Atorvastatin [Lipitor] 40 mg PO HS 03/27/22 06/26/23 Rivaroxaban [Xarelto] 15 mg PO HS 03/27/22 06/26/23 Acetaminophen [Tylenol Extra 1,000 mg PO Q6H PRN 06/26/23 06/26/23 Strength] Cetirizine HCl [Zyrtec] 10 mg PO DAILY PRN 06/26/23 06/26/23 Cholecalciferol [Vitamin D3 (25 50 mcg PO DAILY 06/26/23 06/26/23 Mcg = 1000 Iu)] Clopidogrel [Plavix] 75 mg PO DAILY 06/26/23 06/26/23 Magnesium Oxide [Magnesium] 500 mg PO DAILY 06/26/23 06/26/23 Vit C/E/Zn/Coppr/Lutein/Zeaxan 1 cap PO BID 06/26/23 06/26/23 [Preservision Areds 2 Softgel] buPROPion SR [Wellbutrin SR] 100 mg PO DAILY 06/26/23 06/26/23 Previous Rx's Medication Instructions Recorded methocarbamoL [Robaxin] 500 mg PO TID PRN #15 tab 06/26/23 Allergies Allergy/AdvReac Type Severity Reaction Status Date / Time cephalexin monohydrate Allergy Itching Verified 06/26/23 17:56 [From Keflex] codeine Allergy Hallucinati Verified 06/26/23 17:56 ons hydrocodone bitartrate Allergy Hallucinati Verified 06/26/23 17:56 [From Lortab] ons latex Allergy Rash/Hives Verified 06/26/23 17:56 Review of Systems ROS Statement: Those systems with pertinent positive or pertinent negative responses have been documented in the HPI. ROS Other: All systems not noted in ROS Statement are negative. Past Medical History Past Medical History: Atrial Flutter, Asthma, CVA/TIA, Diabetes Mellitus, Fibromyalgia, GERD/Reflux, GI Bleed, Hyperlipidemia, Hypertension, Pneumonia, Sleep Apnea/CPAP/BIPAP Additional Past Medical History / Comment(s): Hx TIA X2 01/14, X1 11/15, sometimes has trouble coming up with her words since. Hx acute respiratory failure when she had bilateral pneumonia. Chronic bronchitis, seasonal allergies, sinus problems. CPAP use. "Pre" diabetic, neuropathy right foot. Heart murmur, MVR(Mitral Ludivina Regurg). Hx kidney stones. Hx lower GI bleed, benign colon polyps. Left knee bursitis, RLS. Hx anemia. Hx foot and bilateral wrist fractures. Chronic fatigue, hypothyroid. Hx UTIs. History of Any Multi-Drug Resistant Organisms: None Reported Past Surgical History: Heart Catheterization, Hysterectomy, Joint Replacement, Orthopedic Surgery, Tonsillectomy Additional Past Surgical History / Comment(s): Total right knee arthroplasty, laser surgery for kidney stones, cysts removed from above left eye and back of h ead, surgery for right wrist fracture, colonoscopy/polypectomy, precancerous skin lesions removed, right foot bunionectomy. Past Anesthesia/Blood Transfusion Reactions: No Reported Reaction Past Psychological History: Depression Smoking Status: Never smoker Past Alcohol Use History: Rare Past Drug Use History: None Reported - Past Family History Mother Family Medical History: CVA/TIA Brother(s) Family Medical History: Myocardial Infarction (SD) Additional Family Medical History / Comment(s): ONE BROTHER OF A SD IN HIS EARLY 60S, HIS SON OF SD AT 40 YRS OF AGE. OTHER BROTHER: "HEART PROBLEMS." Father Family Medical History: CVA/TIA Additional Family Medical History / Comment(s): FROM STROKE at 75 yrs. Daughter(s) Additional Family Medical History / Comment(s): The patient has 3 daughters. One is being evaluated for cancer, one has history of rheumatoid arthritis and one with no major medical problems. Patient does not have any sisters. General Exam Limitations: no limitations General appearance: alert, in no apparent distress Head exam: Present: atraumatic, normocephalic, normal inspection Eye exam: Present: normal appearance, PERRL, EOMI. Absent: scleral icterus, conjunctival injection, periorbital swelling ENT exam: Present: normal exam, mucous membranes moist Neck exam: Present: normal inspection. Absent: tenderness, meningismus, lymphadenopathy Respiratory exam: Present: normal lung sounds bilaterally. Absent: respiratory distress, wheezes, rales, rhonchi, stridor Cardiovascular Exam: Present: regular rate, normal rhythm, normal heart sounds. Absent: systolic murmur, diastolic murmur, rubs, gallop, clicks Right Shoulder Exam: Present: normal inspection, full ROM, tenderness (Right shoulder is diffusely tender on posterior and anterior aspect.). Absent: swelling Upper Arm exam: Present: normal inspection, full ROM. Absent: tenderness, swelling Elbow exam: Present: normal inspection, full ROM. Absent: swelling Forearm Wrist exam: Present: normal inspection, full ROM. Absent: tenderness, swelling Hand Wrist exam: Present: normal inspection, full ROM. Absent: tenderness, swelling Vascular: Absent: vascular compromise (Full sensation and radial pulses in upper extremities bilaterally) Back exam: Present: normal inspection, other (No point tenderness along C- spine.) Course Vital Signs 06/26/23 06/26/23 16:44 21:13 Temperature 99.4 F Pulse Rate 100 78 Respiratory 20 16 Rate Blood Pressure 138/70 131/73 O2 Sat by Pulse 98 95 Oximetry Medical Decision Making - Medical Decision Making Was pt. sent in by a medical professional or institution (ROSALBA Cha, TRIPE SCRAPER, urgent care, hospital, or fdc...) When possible be specific @ -No Did you speak to anyone other than the patient for history (EMS, parent, family, police, friend...)? What history was obtained from this source @ -Patient's daughter supplemented history Did you review nursing and triage notes (agree or disagree)? Why? @ -I reviewed and agree with nursing and triage notes Were old charts reviewed (outside hosp., previous admission, EMS record, old EKG, old radiological studies, urgent care reports/EKG's, fdc records)? Report findings @ -EKG from 2020 reviewed and unchanged from today. Differential Diagnosis (chest pain, altered mental status, abdominal pain women, abdominal pain men, vaginal bleeding, weakness, fever, dyspnea, syncope, headache, dizziness, GI bleed, back pain, seizure, CVA, palpatations, mental health, musculoskeletal)? @ -Differential Musculoskeletal Muscular strain, ACS, PE, aortic dissection, Contusion, ligament sprain, fracture, arthritis, septic arthritis, bursitis, cellulitis, muscle spasm, nerve compression, DVT, arterial occlusion, herpes zoster, electrolyte abnormality, tumor.... This is not meant to be in all inclusive list EKG interpreted by me (3pts min.). @ -As above X-rays interpreted by me (1pt min.). @ -Chest x-ray reveals no acute process, right shoulder x-ray reveals no acute process CT interpreted by me (1pt min.). @ -None done U/S interpreted by me (1pt. min.). @ -None done What testing was considered but not performed or refused? (CT, X-rays, U/S, labs)? Why? @ -None What meds were considered but not given or refused? Why? @ -None Did you discuss the management of the patient with other professionals (professionals i.e. ROSALBA Cha, TRIPE SCRAPER, lab, RT, psych nurse, social and political studies professor, oncology coordinator, teacher, business banking officer, shoe caser)? Give summary @ -No Was smoking cessation discussed for >3mins.? @ -No Was critical care preformed (if so, how long)? @ -No Were there social determinants of health that impacted care today? How? (Homelessness, low income, unemployed, alcoholism, drug addiction, transportation, low edu. Level, literacy, decrease access to med. care, detention, rehab)? @ -No Was there de-escalation of care discussed even if they declined (Discuss DNR or withdrawal of care, Hospice)? DNR status @ -No What co-morbidities impacted this encounter? (DM, HTN, Smoking, COPD, CAD, Cancer, CVA, ARF, Chemo, Hep., AIDS, mental health diagnosis, sleep apnea, morbid obesity)? @ -None Was patient admitted / discharged? Hospital course, mention meds given and route, prescriptions, significant lab abnormalities, going to OR and other pertinent info. @ -Patient was discharged. Patient was seen and evaluated for right shoulder pain x 1 day. Patient is neurovascularly intact. Cardiac workup done to rule out ACS. EKG revealed normal sinus rhythm with no ST changes. Chest x-ray and lab work including troponin was unremarkable. Patient was given Tylenol and reports symptoms were improved upon reexamination. Diagnosis of right shoulder strain discussed with patient. Supportive care discussed. Alarm symptoms discussed with patient. Patient discharged in stable condition. Case discussed with Dr. León. Undiagnosed new problem with uncertain prognosis? @ -No Drug Therapy requiring intensive monitoring for toxicity (Heparin, Nitro, Insu leo, Cardizem)? @ -No Were any procedures done? @ -No Diagnosis/symptom? @ -Right shoulder strain Acute, or Chronic, or Acute on Chronic? @ -Acute Uncomplicated (without systemic symptoms) or Complicated (systemic symptoms)? @ -Uncomplicated Side effects of treatment? @ -No Exacerbation, Progression, or Severe Exacerbation? @ -No Poses a threat to life or bodily function? How? (Chest pain, USA, SD, pneumonia, PE, COPD, DKA, ARF, appy, cholecystitis, CVA, Diverticulitis, Homicidal, Suicidal, threat to staff... and all critical care pts) @ -No - Lab Data Result diagrams: 06/26/23 17:49 06/26/23 17:49 Lab Results 06/26/23 06/26/23 06/26/23 Range/Units 17:49 17:49 17:49 WBC 10.2 (3.8-10.6) k/uL RBC 4.07 (3.80-5.40) m/uL Hgb 11.5 (11.4-16.0) gm/dL Hct 35.4 (34.0-46.0) % MCV 86.9 (80.0-100.0) fL MCH 28.2 (25.0-35.0) pg MCHC 32.4 (31.0-37.0) g/dL RDW 15.8 H (11.5-15.5) % Plt Count 177 (150-450) k/uL MPV 8.2 Neutrophils % 81 % Lymphocytes % 10 % Monocytes % 5 % Eosinophils % 2 % Basophils % 1 % Neutrophils # 8.2 H (1.3-7.7) k/uL Lymphocytes # 1.1 (1.0-4.8) k/uL Monocytes # 0.5 (0-1.0) k/uL Eosinophils # 0.2 (0-0.7) k/uL Basophils # 0.1 (0-0.2) k/uL Sodium 143 (137-145) mmol/L Potassium 3.9 (3.5-5.1) mmol/L Chloride 111 H (98-107) mmol/L Carbon Dioxide 25 (22-30) mmol/L Anion Gap 7 mmol/L BUN 13 (7-17) mg/dL Creatinine 0.56 (0.52-1.04) mg/dL Est GFR (CKD-EPI)AfAm >90 (>60 ml/min/1.73 sqM) Est GFR (CKD-EPI)NonAf >90 (>60 ml/min/1.73 sqM) Glucose 102 H (74-99) mg/dL Calcium 9.0 (8.4-10.2) mg/dL Total Bilirubin 0.8 (0.2-1.3) mg/dL AST 25 (14-36) U/L ALT 17 (4-34) U/L Alkaline Phosphatase 110 (38-126) U/L Troponin I <0.012 (0.000-0.034) ng/mL Total Protein 6.7 (6.3-8.2) g/dL Albumin 4.1 (3.5-5.0) g/dL - EKG Data -: EKG Interpreted by [facility] EKG Comments: EKG reveals normal sinus rhythm with T wave inversions in lead III. Ventricular rate 75 bpm, MA interval 136, QRS duration 96, QT/QTc 395/424. Disposition Clinical Impression: Right shoulder strain Disposition: HOME SELF-CARE Condition: Stable Instructions (If sedation given, give patient instructions): Muscle Strain (ED) Additional Instructions: Please return to the Emergency Department if symptoms worsen or any other concerns. Prescriptions: methocarbamoL [Robaxin] 500 mg PO TID PRN #15 tab PRN Reason: muscle spasms Is patient prescribed a controlled substance at d/c from ED?: No Referrals: Peter Meier [Primary Care Provider] - 1-2 days Time of Disposition: 21:00
[2023-06-26] MEDS: ACETAMINOPHEN TAB 325 MG TAB PO STA (17:45)
[2023-06-26 18:07] LABS: Basophils # (A) 0.1 k/uL (0-0.2); Basophils % (A) 1 %; Eosinophils # (A) 0.2 k/uL (0-0.7); Eosinophils % (A) 2 %; HCT 35.4 % (34.0-46.0); HGB 11.5 gm/dL (11.4-16.0); Lymphocytes # (A) 1.1 k/uL (1.0-4.8); Lymphocytes % (A) 10 %; MCH 28.2 pg (25.0-35.0); MCHC 32.4 g/dL (31.0-37.0); MCV 86.9 fL (80.0-100.0); Mean Platelet Volume 8.2; Monocytes # (A) 0.5 k/uL (0-1.0); Monocytes % (A) 5 %; Neutrophils # (A) 8.2 k/uL (1.3-7.7); Neutrophils % (A) 81 %; Platelet Count 177 k/uL (150-450); RBC 4.07 m/uL (3.80-5.40); RDW 15.8 % (11.5-15.5); WBC 10.2 k/uL (3.8-10.6)
[2023-06-26 18:19] LABS: ALT 17 U/L (4-34); AST 25 U/L (14-36); African American GFR (CKD) >90 (>60 ml/min/1.73 sqM); Albumin 4.1 g/dL (3.5-5.0); Alkaline Phosphatase 110 U/L (38-126); Anion Gap 7 mmol/L; Blood Urea Nitrogen 13 mg/dL (7-17); Carbon Dioxide 25 mmol/L (22-30); Chloride 111 mmol/L (98-107); Glucose 102 mg/dL (74-99); Non-African American GFR(CKD) >90 (>60 ml/min/1.73 sqM); Potassium 3.9 mmol/L (3.5-5.1); Sodium 143 mmol/L (137-145); Total Bilirubin 0.8 mg/dL (0.2-1.3); Total Protein 6.7 g/dL (6.3-8.2)
[2023-06-26 21:44] VITALS: BP 131/73; PULSE 78; RESP 16
== END 2023-06-26 21:14 | disposition home or self-care (01) ==
LOC: EC 16:31
DX: S46.911A Strain of unspecified muscle, fascia and tendon at shoulder and upper arm level, right arm, initial encounter (principal); Z88.1 Allergy status to other antibiotic agents; Z88.5 Allergy status to narcotic agent; Z91.040 Latex allergy status; Z86.73 Personal history of transient ischemic attack (TIA), and cerebral infarction without residual deficits; X50.9XXA Other and unspecified overexertion or strenuous movements or postures, initial encounter
CPT/HCPCS: 36415; 71046; 80053; 84484; 85025; 93005; 99284

== ENCOUNTER 2024-08-22 02:00 | Emergency (ER) | payer MEDICARE ==
[2024-08-22 02:06] VITALS: BP 195/75; PULSE 72; RESP 18; TEMP 97.9
--- NOTE | 2024-08-22 03:14 | XR ---
EXAM: XR Right Ribs, 2 Views CLINICAL HISTORY: ITS.REASON XR Reason: pain TECHNIQUE: Frontal and oblique views of the right ribs. COMPARISON: No relevant prior studies available. FINDINGS: Lungs: Unremarkable as visualized. No consolidation. Pleural space: Unremarkable. No pneumothorax. Bones/joints: Unremarkable. No acute fracture. IMPRESSION: No right-sided rib fracture.
--- NOTE | 2024-08-22 05:30 | ED ---
General Adult HPI - General Chief complaint: Fall Stated complaint: Fall- Rib pain Time Seen by Provider: 08/22/24 05:00 Source: patient, RN notes reviewed, old records reviewed Mode of arrival: wheelchair Limitations: no limitations - History of Present Illness Initial comments: 74-year-old female presents emergency department after a fall 2 or 3 days ago. Hurt the right side of her ribs. States pain is gotten worse. Presents for further evaluation. Patient does have a history of atrial flutter on Xarelto, asthma, diabetes, fibromyalgia, hypertension, hyperlipidemia. Denies any cough or congestion. Denies any other obvious injuries. Did not hit her head. Did not lose consciousness. States pain is over the lateral aspect of her right ribs where she has bruising and she has pain along that rib space towards the front and back. Presents for further evaluation at this time. - Related Data Home Medications Medication Instructions Recorded Confirmed Levothyroxine Sodium [Synthroid] 50 mcg PO DAILY 03/12/16 06/26/23 Losartan [Cozaar] 50 mg PO HS 03/12/16 06/26/23 Montelukast [Singulair] 10 mg PO HS 03/12/16 06/26/23 Sertraline [Zoloft] 150 mg PO DAILY 03/12/16 06/26/23 metFORMIN HCL ER [Glucophage XR] 500 mg PO DAILY 03/12/16 06/26/23 Pregabalin [Lyrica] 100 mg PO BID 06/04/18 06/26/23 amLODIPine [Norvasc] 5 mg PO BID 12/25/20 06/26/23 Atorvastatin [Lipitor] 40 mg PO HS 03/27/22 06/26/23 Rivaroxaban [Xarelto] 15 mg PO HS 03/27/22 06/26/23 Acetaminophen [Tylenol Extra 1,000 mg PO Q6H PRN 06/26/23 06/26/23 Strength] Cetirizine HCl [Zyrtec] 10 mg PO DAILY PRN 06/26/23 06/26/23 Cholecalciferol [Vitamin D3 (25 50 mcg PO DAILY 06/26/23 06/26/23 Mcg = 1000 Iu)] Clopidogrel [Plavix] 75 mg PO DAILY 06/26/23 06/26/23 Magnesium Oxide [Magnesium] 500 mg PO DAILY 06/26/23 06/26/23 Vit C/E/Zn/Coppr/Lutein/Zeaxan 1 cap PO BID 06/26/23 06/26/23 [Preservision Areds 2 Softgel] buPROPion SR [Wellbutrin SR] 100 mg PO DAILY 06/26/23 06/26/23 Previous Rx's Medication Instructions Recorded methocarbamoL [Robaxin] 500 mg PO TID PRN #15 tab 06/26/23 Cyclobenzaprine [Flexeril] 5 mg PO TID PRN 7 Days #21 tablet 08/22/24 Lidocaine 5% Patch [Lidoderm 5% 1 patch TOPICAL DAILY PRN 14 Days 08/22/24 Patch] #14 patch Allergies Allergy/AdvReac Type Severity Reaction Status Date / Time cephalexin monohydrate Allergy Itching Verified 08/22/24 02:06 [From Keflex] codeine Allergy Hallucinati Verified 08/22/24 02:06 ons hydrocodone bitartrate Allergy Hallucinati Verified 08/22/24 02:06 [From Lortab] ons latex Allergy Rash/Hives Verified 08/22/24 02:06 Review of Systems ROS Statement: Those systems with pertinent positive or pertinent negative responses have been documented in the HPI. Review of Systems: CONST: Denies fever EYES: Denies blurry vision ENT: Denies nasal congestion C/V: Denies Chest pain RESP: Denies shortness of breath GI: Denies abdominal pain : Denies dysuria SKIN: Denies rash. MSK: Dors is rib pain NEURO: Denies headache ROS Other: All systems not noted in ROS Statement are negative. Past Medical History Past Medical History: Atrial Flutter, Asthma, CVA/TIA, Diabetes Mellitus, Fibromyalgia, GERD/Reflux, GI Bleed, Hyperlipidemia, Hypertension, Pneumonia, Sleep Apnea/CPAP/BIPAP Additional Past Medical History / Comment(s): Hx TIA X2 01/14, X1 11/15, sometimes has trouble coming up with her words since. Hx acute respiratory failure when she had bilateral pneumonia. Chronic bronchitis, seasonal allergies, sinus problems. CPAP use. "Pre" diabetic, neuropathy right foot. Heart murmur, MVR(Mitral Holder Regurg). Hx kidney stones. Hx lower GI bleed, benign colon polyps. Left knee bursitis, RLS. Hx anemia. Hx foot and bilateral wrist fractures. Chronic fatigue, hypothyroid. Hx UTIs. History of Any Multi-Drug Resistant Organisms: None Reported Past Surgical History: Heart Catheterization, Hysterectomy, Joint Replacement, Orthopedic Surgery, Tonsillectomy Additional Past Surgical History / Comment(s): Total right knee arthroplasty, laser surgery for kidney stones, cysts removed from above left eye and back of head, surgery for right wrist fracture, colonoscopy/polypectomy, precancerous skin lesions removed, right foot bunionectomy. Past Anesthesia/Blood Transfusion Reactions: No Reported Reaction Past Psychological History: Depression Smoking Status: Never smoker Past Alcohol Use History: Rare Past Drug Use History: None Reported - Past Family History Mother Family Medical History: CVA/TIA Brother(s) Family Medical History: Myocardial Infarction (SD) Additional Family Medical History / Comment(s): ONE BROTHER OF A SD IN HIS EARLY 60S, HIS SON OF SD AT 40 YRS OF AGE. OTHER BROTHER: "HEART PROBLEMS." Father Family Medical History: CVA/TIA Additional Family Medical History / Comment(s): FROM STROKE at 75 yrs. Daughter(s) Additional Family Medical History / Comment(s): The patient has 3 daughters. One is being evaluated for cancer, one has history of rheumatoid arthritis and one with no major medical problems. Patient does not have any sisters. General Exam - General Exam Comments Initial Comments: General: Appears in no acute distress. HEAD: Normal with no signs of head trauma. Negative Gonzalez sign. Negative raccoon eyes. EYES: EOMI. ENT: Hearing grossly intact. RESPIRATORY: No respiratory distress. No flail chest. Clear breath sounds bilaterally. No hypoxia. C/V: Regular rate and rhythm. S1 and S2 auscultated. ABD: Abdomen is nondistended. EXT: No obvious deformity. SKIN: Bruising located over the right lateral ribs. NEURO: Alert and oriented. Limitations: no limitations Course Vital Signs 08/22/24 02:03 Temperature 97.9 F Pulse Rate 72 Respiratory 18 Rate Blood Pressure 195/75 O2 Sat by Pulse 97 Oximetry Medical Decision Making - Medical Decision Making Was pt. sent in by a medical professional or institution (, PA, UNIVERSITY RELATIONS DIRECTOR, urgent care, hospital, or senior living...) When possible be specific @ -No Did you speak to anyone other than the patient for history (EMS, parent, family, police, friend...)? What history was obtained from this source @ -No Did you review nursing and triage notes (agree or disagree)? Why? @ -I reviewed and agree with nursing and triage notes Were old charts reviewed (outside hosp., previous admission, EMS record, old EKG, old radiological studies, urgent care reports/EKG's, senior living records)? Report findings @ -No old charts were reviewed Differential Diagnosis (chest pain, altered mental status, abdominal pain women, abdominal pain men, vaginal bleeding, weakness, fever, dyspnea, syncope, hea dache, dizziness, GI bleed, back pain, seizure, CVA, palpatations, mental health, musculoskeletal)? @ -Rib contusion, rib fracture, pneumothorax. This list is not all-inclusive. EKG interpreted by me (3pts min.). @ -None done X-rays interpreted by me (1pt min.). @ -Rib x-ray shows no obvious pneumothorax. No evidence of rib fracture. CT interpreted by me (1pt min.). @ -None done U/S interpreted by me (1pt. min.). @ -None done What testing was considered but not performed or refused? (CT, X-rays, U/S, labs)? Why? @ -None What meds were considered but not given or refused? Why? @ -None Did you discuss the management of the patient with other professionals (professionals i.e. , PA, UNIVERSITY RELATIONS DIRECTOR, lab, RT, psych nurse, social services manager, egg breaker, teacher, project officer, gearcase assembler)? Give summary @ -No Was smoking cessation discussed for >3mins.? @ -No Was critical care preformed (if so, how long)? @ -No Were there social determinants of health that impacted care today? How? (Homelessness, low income, unemployed, alcoholism, drug addiction, transportation, low edu. Level, literacy, decrease access to med. care, care home, rehab)? @ -No Was there de-escalation of care discussed even if they declined (Discuss DNR or withdrawal of care, Hospice)? DNR status @ -No What co-morbidities impacted this encounter? (DM, HTN, Smoking, COPD, CAD, Cancer, CVA, ARF, Chemo, Hep., AIDS, mental health diagnosis, sleep apnea, morbid obesity)? @ -None Was patient admitted / discharged? Hospital course, mention meds given and route, prescriptions, significant lab abnormalities, going to OR and other pertinent info. @ -Based on the patient's presentation physical exam, presents with likely either rib contusion or rib fracture. X-ray was obtained while patient was in triage and I evaluated patient after this was completed. Vital signs within acceptable limits. X-ray unremarkable. I discussed results with patient. Diagnosis is rib contusion. She will be discharged home with lidocaine patch prescription as well as Flexeril prescription. Given a dose of both prior to discharge. She is also given an incentive spirometer. Strict return precautions discussed. Follows up with her PCP on Friday. I will provide the patient with a prescription for Flexeril, lidocaine patch. I instructed the patient to follow up with their PCP in the next 1-3 days.. I explained that the patient should return to the emergency department if they experience any worsening symptoms. Strict return precautions were discussed with the patient. The patient expressed understanding of these instructions. I answered all questions that the patient had. The patient was discharged home in good condition with their prescriptions and follow up information. Undiagnosed new problem with uncertain prognosis? @ -No Drug Therapy requiring intensive monitoring for toxicity (Heparin, Nitro, Insulin, Cardizem)? @ -No Were any procedures done? @ -No Diagnosis/symptom? @ -Rib contusion, fall Acute, or Chronic, or Acute on Chronic? @ -Acute Uncomplicated (without systemic symptoms) or Complicated (systemic symptoms)? @ -Uncomplicated Side effects of treatment? @ -No Exacerbation, Progression, or Severe Exacerbation? @ -No Poses a threat to life or bodily function? How? (Chest pain, USA, SD, pneumonia, PE, COPD, DKA, ARF, appy, cholecystitis, CVA, Diverticulitis, Homicidal, Suicidal, threat to staff... and all critical care pts) @ -Unlikely at this time Disposition Clinical Impression: Fall, Contusion of rib on right side Disposition: HOME SELF-CARE Condition: Good Instructions (If sedation given, give patient instructions): How to Use an Incentive Spirometer (ED), Fall Prevention for Older Adults (ED), Rib Contusion (ED) Prescriptions: Cyclobenzaprine [Flexeril] 5 mg PO TID PRN 7 Days #21 tablet PRN Reason: Pain Lidocaine 5% Patch [Lidoderm 5% Patch] 1 patch TOPICAL DAILY PRN 14 Days #14 patch PRN Reason: Pain Is patient prescribed a controlled substance at d/c from ED?: No Referrals: Peter Meier [Primary Care Provider] - 1-2 days Time of Disposition: 05:30
[2024-08-22] MEDS: CYCLOBENZAPRINE 5 MG TAB PO STA (05:43)
[2024-08-22] MEDS: LIDOCAINE 4% PATCH TOPICAL STA (05:44)
== END 2024-08-22 05:52 | disposition home or self-care (01) ==
LOC: EC 02:00
DX: S20.211A Contusion of right front wall of thorax, initial encounter (principal); Z91.040 Latex allergy status; Z88.5 Allergy status to narcotic agent; Z88.1 Allergy status to other antibiotic agents; X58.XXXA Exposure to other specified factors, initial encounter
CPT/HCPCS: 99283